=== PATIENT | female | born 1980 | race Caucasian/White ===

== ENCOUNTER 2016-06-11 07:49 | Emergency (ER) | payer BC ==
[2016-06-11 08:05] VITALS: BP 131/81
--- NOTE | 2016-06-11 08:16 | UC ---
Respiratory Complaint HPI - HPI Summary HPI Summary: The patient comes in today for: 1. Sinus pressure: Onset: One week. Palliative/provocative: Nothing makes her symptoms better or worse. Quality: Pressure Region: Frontal Severity: 8/10 though she appears less. Time: Constant. Associated symptoms: Previous disease: She was previously treated for a sinus infection and UTI and treated with 10 days of BActrim. Fevers: None. Rhinitis: "Sometimes" and appears yellowish. Cough: Green material. Upper tooth pain: Present. * - History of Current Complaint Stated Complaint: SINUSES Time Seen by Provider: 06/11/16 08:00 Hx Obtained From: Patient Hx Last Menstrual Period: 06/01/16 ?: No - Allergies/Home Medications Allergies/Adverse Reactions: Allergies Allergy/AdvReac Type Severity Reaction Status Date / Time Penicillins Allergy Mild See Comment Unverified 06/11/16 08:06 PMH/Surg Hx/FS Hx/Imm Hx Previously Healthy: No Endocrine History Of: Denies: Diabetes, Thyroid Disease Cardiovascular History Of: Reports: Cardiac Disorders - related CHF, 2004, Hypertension - During , had pre-eclampsia with heart failure by her report. Denies: Pacemaker/ICD, Myocardial Infarction, Congestive Heart Failure, Atrial Fibrillation, Deep Vein Thrombosis, Bleeding Disorders Respiratory History Of: Denies: COPD, Asthma, Bronchitis, Pneumonia, Pulmonary Embolism GI/ History Of: Denies: Gastroesophageal Reflux, Ulcer, Gastrointestinal Bleed, Gall Bladder Disease, Kidney Stones, Diverticulitis, Renal Disease, Urosepsis Neurological History Of: Denies: TIA, CVA, Dementia, Seizures, Migraine Psychological History Of: Reports: Anxiety Denies: Depression, Bipolar Disorder, Schizophrenia, Post Traumatic Stress Disorder Cancer History Of: Denies: Lung Cancer, Colorectal Cancer, Breast Cancer, Prostate Cancer Other History Of: Negative For: HIV, Hepatitis B, Hepatitis C, Anticoagulant Therapy - Surgical History Surgical History: Yes Surgery Procedure, Year, and Place: x1 - Family History Known Family History: Negative: Cardiac Disease, Hypertension, Renal Disease - Social History Occupation: Employed Full-time Alcohol Use: Rare Substance Use Type: Prescribed Substance Use Comment - Amount & Last Used: xanax Smoking Status (MU): Never Smoked Tobacco Have You Smoked in the Last Year: No - Immunization History Most Recent Influenza Vaccination: Not the Season Review of Systems Constitutional: Negative Skin: Negative Eyes: Negative ENT: Nasal Discharge Respiratory: Cough Cardiovascular: Negative Gastrointestinal: Negative Genitourinary: Negative All Other Systems Reviewed And Are Negative: Yes Physical Exam Triage Information Reviewed: Yes Appearance: Well-Appearing, No Pain Distress, Well-Nourished Vital Signs: Initial Vital Signs Temp 98 F 06/11/16 07:55 Pulse 68 06/11/16 07:55 Resp 16 06/11/16 07:55 BP 131/81 06/11/16 07:55 Pulse Ox 99 06/11/16 07:55 Vital Signs Reviewed: Yes Eyes: Positive: Conjunctiva Clear. Negative: Discharge ENT: Positive: Hearing grossly normal, Other: - She had tenderness to palpation of the frontal and maxillary sinuses.. Negative: Pharyngeal erythema, Nasal congestion, Nasal drainage, TM bulging, TM dull, TM red Dental: Negative: Gross Decay/Caries @, Dental Fracture @ Neck: Positive: Supple, Nontender, No Lymphadenopathy, Nuchal Rigidity Respiratory: Positive: Lungs clear, No respiratory distress, No accessory muscle use. Negative: Crackles, Wheezing Cardiovascular: Positive: RRR, No Murmur Abdomen Description: Positive: Nontender, No Organomegaly, Soft. Negative: Distended, Guarding Musculoskeletal: Positive: Strength Intact, ROM Intact, No Edema Neurological: Positive: Alert, Muscle Tone Normal Psychological: Positive: Age Appropriate Behavior, Consolable Skin: Negative: rashes, breakdown UC Diagnostic Evaluation - Laboratory O2 Sat by Pulse Oximetry: 99 Respiratory Course/Dx - Differential Dx/Diagnosis Differential Diagnosis/HQI/PQRI: Bronchitis, Laryngitis Provider Diagnoses: Sinusitis Discharge - Discharge Plan Condition: Stable Disposition: HOME Patient Education Materials: Sinusitis (ED) Referrals: Non Staff,Doctor [Primary Care Provider] - 1 Week (Please see your primary care provider in about a week to see how well you are doing. If you get worse, please be seen sooner.)
== END 2016-06-11 08:29 | disposition home or self-care (01) ==
LOC: UCCORT 07:49
DX: J32.9 Chronic sinusitis, unspecified (principal); Z88.0 Allergy status to penicillin
CPT/HCPCS: 99212; G0463

== ENCOUNTER 2016-06-25 15:36 | Emergency (ER) | payer BC ==
[2016-06-25 17:43] VITALS: BP 123/63
--- NOTE | 2016-06-25 18:06 | UC ---
Throat Pain/Nasal Jorge Alberto HPI - HPI Summary HPI Summary: compalint of sinus congestion for approx 1 month took a course of bactrim for 10 days then seen again and started a course of doxycycoine finished antibiotics 1 wek ago never really felt and better denies fever and xhills still congested and coughing non productive cough used nasal spray zyrtec yesterday - History of Current Complaint Chief Complaint: UCGeneralIllness Stated Complaint: RE CHECEK COUGH,CONGESTION Time Seen by Provider: 06/25/16 17:35 Hx Obtained From: Patient Hx Last Menstrual Period: 06/01/16 - Allergies/Home Medications Allergies/Adverse Reactions: Allergies Allergy/AdvReac Type Severity Reaction Status Date / Time Penicillins Allergy Mild See Comment Unverified 06/25/16 17:42 PMH/Surg Hx/FS Hx/Imm Hx Previously Healthy: Yes Endocrine History Of: Denies: Diabetes, Thyroid Disease Cardiovascular History Of: Reports: Cardiac Disorders - related CHF, 2004, Hypertension - During , had pre-eclampsia with heart failure by her report. Denies: Pacemaker/ICD, Myocardial Infarction, Congestive Heart Failure, Atrial Fibrillation, Deep Vein Thrombosis, Bleeding Disorders Respiratory History Of: Denies: COPD, Asthma, Bronchitis, Pneumonia, Pulmonary Embolism GI/ History Of: Denies: Gastroesophageal Reflux, Ulcer, Gastrointestinal Bleed, Gall Bladder Disease, Kidney Stones, Diverticulitis, Renal Disease, Urosepsis Neurological History Of: Denies: TIA, CVA, Dementia, Seizures, Migraine Psychological History Of: Reports: Anxiety Denies: Depression, Bipolar Disorder, Schizophrenia, Post Traumatic Stress Disorder Cancer History Of: Denies: Lung Cancer, Colorectal Cancer, Breast Cancer, Prostate Cancer Other History Of: Negative For: HIV, Hepatitis B, Hepatitis C, Anticoagulant Therapy - Surgical History Surgical History: Yes Surgery Procedure, Year, and Place: x1 - Family History Known Family History: Positive: None Negative: Cardiac Disease, Hypertension, Renal Disease - Social History Occupation: Employed Full-time Lives: With Family Alcohol Use: None Substance Use Type: Prescribed Substance Use Comment - Amount & Last Used: xanax Smoking Status (MU): Never Smoked Tobacco Have You Smoked in the Last Year: No - Immunization History Most Recent Influenza Vaccination: none Review of Systems Constitutional: Negative Skin: Negative Eyes: Negative ENT: Nasal Discharge Respiratory: Cough Cardiovascular: Negative Gastrointestinal: Negative Genitourinary: Negative Motor: Negative Neurovascular: Negative Musculoskeletal: Negative Neurological: Negative Psychological: Negative All Other Systems Reviewed And Are Negative: Yes Physical Exam Triage Information Reviewed: Yes Appearance: No Pain Distress, Well-Nourished Vital Signs: Initial Vital Signs Temp 98.4 F 06/25/16 17:36 Pulse 74 06/25/16 17:36 Resp 17 06/25/16 17:36 BP 123/63 06/25/16 17:36 Pulse Ox 99 06/25/16 17:36 Vital Signs Reviewed: Yes Eyes: Positive: Conjunctiva Clear ENT: Positive: Pharyngeal erythema, Nasal congestion, Nasal drainage, TMs normal. Negative: Tonsillar swelling Neck: Positive: No Lymphadenopathy Respiratory: Positive: Lungs clear, Normal breath sounds, No respiratory distress Cardiovascular: Positive: RRR, No Murmur, Pulses Normal Abdomen Description: Positive: Nontender, Soft Bowel Sounds: Positive: Present Musculoskeletal: Positive: No Edema Neurological: Positive: Alert Psychological Exam: Normal Skin Exam: Normal Throat Pain/Nasal Course/Dx - Differential Dx/Diagnosis Differential Diagnosis/HQI/PQRI: Influenza, Sinusitis, URI Provider Diagnoses: URI Discharge - Discharge Plan Condition: Stable Disposition: HOME Patient Education Materials: Upper Respiratory Infection (ED), Nasal Rinse (ED) , Sinusitis (ED) Additional Instructions: You have a viral infection There is no cure for a viral illness treatment is symptom management only Increase fluids and rest Take acetaminophen or ibuprofen for fever or pain Please review your discharge instructions. If your symptoms do not improve please call your primary care provider or return to urgent care
== END 2016-06-25 18:21 | disposition home or self-care (01) ==
LOC: UCCORT 15:36
DX: J06.9 Acute upper respiratory infection, unspecified (principal); Z88.0 Allergy status to penicillin
CPT/HCPCS: 99211; G0463

== ENCOUNTER 2018-06-16 17:02 | Emergency (ER) | payer BC ==
--- OUTSIDE RECORDS SUMMARY | 2018-06-16 18:11 | XMS REPORT | Continuity of Care Document ---
:1980 External Reference #:[id number] Author Name Josue Santiago MD Address [address], [address] [place] [address] Care Team Providers Name Role Phone Job Reed MD Primary Care Physician Unavailable Payers Type Date Identification Numbers Payment Provider Subscriber Policy Number: [id number] Azra CANO Tita Cochran [facility] Group Number: [id number] PayID: [id number] [place] [address] Expires: 2011 Policy Number: Excell[employer] SONIAJoao Carrasquillo [id number] [facility] PayID: [id number] [place] [address] Advance Directives Description No Information Available Problems Date Description Provider Status Onset: 04/23/2014 Obesity Active Onset: 04/23/2014 Obstructive sleep apnea syndrome Active Note: Tx autoCPAP [id number] [facility] (AirView) Mild HITESH. 04/10/14 home sleep study (266#) Ahi 12, oximetry low 87% Onset: 04/23/2014 Anxiety Active Family History Date Family Member(s) Problem(s) Comments Mother Sleep Apnea Mother Breast Cancer Social History Type Date Description Comments Sex Unknown Occupation [id number] mother. Tobacco Use Reviewed: 03/03/18 Patient has never smoked Smoking Status Reviewed: 03/03/18 Patient has never smoked Allergies, Adverse Reactions, Alerts Date Description Reaction Status Severity Comments 07/05/2008 Penicillins Active Medications Medication Date Status Form Strength Qnty SIG Indications Ordering Provider Vitamin 04/23/ Active Tablets 500-400mcg 0tabs take 1 Unknown X94-[id number] Acid 2013 capsule by oral route every day Multivitamins 04/23/ Active Capsules 0caps take 1 Unknown 2013 capsule by oral route every day Ibuprofen 04/23/ Active Tablets 800mg 0tabs take 1 Unknown 2013 tablet by oral route 3 times every day with food Celexa 04/23/ Active Tablets 40mg 0tabs take 1 Unknown 2013 tablet by oral route every day Vitamin D3 / Active Tablets 400Unit 0tabs take 2 Unknown Tablet by Oral route every day Magnesium / Active Tablets 30mg 0tabs use Unknown 0000 directed Biotin / Active Capsules 10mg Unknown 0000 Iron / Active Tablets 325(65Fe) 1 by mouth Unknown 0000 mg every day Flaxseed Oil / Active Capsules 1000mg 1 by mouth Unknown 0000 every day Cefdinir 07/01/ Hx Capsules 300mg 0caps take 1 Unknown 2015 - capsule by 03/03/ oral route 2018 every 12 hours Immunizations CPT Code Status Date Vaccine Lot # [id number] Given 02/20/2018 Influenza Vaccine, Quadrivalent, Split Virus, Im Use (Multi-Dose) Vital Signs Date Vital Result Comment 05/26/2018 9:29am Height 70.5 inches 5'10.50" Weight 282.00 lb BMI (Body Mass Index) 39.9 kg/m2 BP Systolic 120 mmHg BP Diastolic 70 mmHg Heart Rate 64 /min Body Temperature 97.6 F Body Temperature 36.4 C O2 % BldC Oximetry 97 % 03/03/2018 11:10am Height 70.5 inches 5'10.50" Weight 278.00 lb BMI (Body Mass Index) 39.3 kg/m2 BP Systolic 146 mmHg BP Diastolic 58 mmHg Heart Rate 78 /min Body Temperature 97.7 F Body Temperature 36.5 C O2 % BldC Oximetry 98 % 07/01/2015 10:00am Height 70.60 inches Weight 234.00 lb BMI (Body Mass Index) 33.00 kg/m2 BP Systolic 116 mmHg BP Diastolic 71 mmHg Heart Rate 66 /min Body Temperature 98.4 F Body Temperature 36.9 C O2 % BldC Oximetry 98 % 04/23/2014 10:33am Height 70.60 inches Weight 266.00 lb BMI (Body Mass Index) 37.52 kg/m2 BP Systolic 113 mmHg BP Diastolic 76 mmHg Heart Rate 66 /min Body Temperature 97.0 F Body Temperature 36.1 C O2 % BldC Oximetry 97 % 07/05/2008 10:23am BP Systolic 120 mmHg BP Diastolic 84 mmHg 07/05/2008 10:23am Height 69 inches Weight 232.00 lb BMI (Body Mass Index) 34.3 kg/m2 BP Systolic 116 mmHg BP Diastolic 84 mmHg Heart Rate 60 /min Results Description No Information Available Procedures Date Code Description Status 07/05/2008 80217 Electrocardiogram Complete Completed Encounters Type Date Location Provider Dx Diagnosis Office Visit 03/03/2018 [facility] Primary Care [place] G47.33 Obstructive sleep 11:00a AT [facility] One[facility] NP apnea (adult) (pediatric) Plan of Treatment Future Appointment(s):05/30/2019 10:40 am - Josue Santiago MD at [facility] Primary Care AT [facility]/04/2019 - Josue Santiago MDG47.33 Obstructive sleep apnea ( adult) (pediatric)E66.9 Obesity, unspecified
[2018-06-16 18:21] VITALS: BP 126/81
--- NOTE | 2018-06-16 18:36 | UC ---
General HPI - HPI Summary HPI Summary: pt c/o being ill for 4 weeks. began with a head cold, cough and chest congestion. her pcp tx with a zpak that helped lungs only. she returns for ongoing sinus congestion and now pain with purulent foul tasting drainage. - History of Current Complaint Chief Complaint: UCGeneralIllness Stated Complaint: SINUS Time Seen by Provider: 06/16/18 18:28 Hx Obtained From: Patient Hx Last Menstrual Period: 06/14/18 Onset/Duration: Gradual Onset Timing: Constant Pain Intensity: 7 Associated Signs & Symptoms: Negative: Fever, Headache - Allergy/Home Medications Allergies/Adverse Reactions: Allergies Allergy/AdvReac Type Severity Reaction Status Date / Time Penicillins Allergy Avoids it Verified 06/16/18 18:15 due to father's allergy Home Medications: Home Medications Ibuprofen TAB* [Motrin TAB* 800 MG] 800 mg PO Q6H 06/16/18 [History Confirmed ] Iron,Carbonyl [Iron Chews Pediatric] 15 mg PO DAILY PRN 06/16/18 [History Confirmed 06/16/18] Magnesium Oxide [Kp Mag-Oxide Magnesium] 100 mg PO BID 06/16/18 [History Confirmed 06/16/18] PMH/Surg Hx/FS Hx/Imm Hx - Additional Past Medical History Additional PMH: sinusitis Other History Of: Negative For: HIV, Hepatitis B, Hepatitis C, Anticoagulant Therapy - Surgical History Surgical History: Yes Surgery Procedure, Year, and Place: x1. ORAL SURGERY - Family History Known Family History: Positive: None Negative: Cardiac Disease, Hypertension, Renal Disease - Social History Alcohol Use: None Substance Use Type: Prescribed Substance Use Comment - Amount & Last Used: xanax Smoking Status (MU): Never Smoked Tobacco Have You Smoked in the Last Year: No - Immunization History Most Recent Influenza Vaccination: none Review of Systems All Other Systems Reviewed And Are Negative: Yes Constitutional: Positive: Negative Skin: Positive: Negative Eyes: Positive: Negative ENT: Positive: Nasal Discharge, Sinus Congestion, Sinus Pain/Tenderness Respiratory: Positive: Cough Cardiovascular: Positive: Negative Gastrointestinal: Positive: Negative Genitourinary: Positive: Negative Motor: Positive: Negative Neurovascular: Positive: Negative Musculoskeletal: Positive: Negative Neurological: Positive: Negative Psychological: Positive: Negative Physical Exam Triage Information Reviewed: Yes Appearance: Well-Appearing Vital Signs: Initial Vital Signs Temp 98.5 F 01/25/19 18:12 Pulse 60 06/16/18 18:12 Resp 18 06/16/18 18:12 BP 126/81 06/16/18 18:12 Pulse Ox 100 06/16/18 18:12 Vital Signs Reviewed: Yes Eyes: Positive: Conjunctiva Clear ENT: Positive: Pharynx normal, Nasal congestion, TMs normal, Sinus tenderness. Negative: Nasal drainage Neck: Positive: Supple, Nontender, No Lymphadenopathy Respiratory: Positive: Lungs clear, Decreased breath sounds, Other: - NPC Cardiovascular: Positive: RRR, No Murmur Abdomen Description: Positive: Nontender, No Organomegaly, Soft Bowel Sounds: Positive: Present Musculoskeletal: Positive: ROM Intact Neurological: Positive: Alert Psychological: Positive: Age Appropriate Behavior Skin Exam: Normal Course/Dx - Diagnoses Provider Diagnosis: Sinusitis, Cough Discharge - Sign-Out/Discharge Documenting (check all that apply): Patient Departure All imaging exams completed and their final reports reviewed: No Studies - Discharge Plan Condition: Stable Disposition: HOME Prescriptions: Albuterol HFA INHALER* [Ventolin HFA Inhaler*] 2 puff INH Q6H #1 mdi DOXYcycline CAP(*) [DOXYcycline 100MG CAP(*)] 100 mg PO BID 10 Days #20 cap Patient Education Materials: Sinusitis (ED), Acute Cough (ED) Referrals: Eloy Reed NP [Primary Care Provider] - 7 Days - Billing Disposition and Condition Condition: STABLE Disposition: Home
== END 2018-06-16 18:56 | disposition home or self-care (01) ==
LOC: UCCORT 17:02
DX: J32.9 Chronic sinusitis, unspecified (principal); R05 Cough; R09.89 Other specified symptoms and signs involving the circulatory and respiratory systems; Z88.0 Allergy status to penicillin
CPT/HCPCS: 99212; G0463

== ENCOUNTER 2018-08-21 10:45 | Emergency (ER) | payer BC ==
[2018-08-21 12:41] VITALS: BP 139/75
--- NOTE | 2018-08-21 12:55 | UC ---
Neck Pain HPI - HPI Summary HPI Summary: 38 y/o female with h/o fibrolmyalgia, arthritis, h/o lower back pain presents with neck pain, more right sided x 1 week. no worsening, worse with neck movements or sudden movements. + throbbing headache at times due to pain. no illnesses, fever, feeling ill. NO trauma. intermittent tingling in fingertips R sided at times, very short lived no h/o neck trauma, injuries. - History of Current Complaint Chief Complaint: UCBackPain Stated Complaint: RIGHT SIDED NECK PAIN x1 WEEK Time Seen by Provider: 08/21/18 12:53 Hx Obtained From: Patient Hx Last Menstrual Period: 08/13/18 ?: No Onset/Duration Of Injury/Symptoms: Days Mechanism Of Injury: No Known Trauma Timing: Intermittent Episodes - worse with head movement s Onset/Duration: Sudden Onset Severity: Moderate Pain Intensity: 4 Pain Scale Used: 0-10 Numeric Character: Aching, Stiff, Spasmotic Aggravating Factors: Position, Movement Alleviating Factors: Other: - rest, OTC Meds - motrin 800mg Associated Signs & Symptoms: Negative: Swelling, Redness, Bruising, Fever, Nuchal Rigity, Weakness, Headache, Paresthesia - Allergies/Home Medications Allergies/Adverse Reactions: Allergies Allergy/AdvReac Type Severity Reaction Status Date / Time Penicillins Allergy Avoids it Verified 08/21/18 12:34 due to father's allergy PMH/Surg Hx/FS Hx/Imm Hx Previously Healthy: Yes - fibromyalgia Other History Of: Negative For: HIV, Hepatitis B, Hepatitis C, Anticoagulant Therapy - Surgical History Surgical History: Yes Surgery Procedure, Year, and Place: x1. ORAL SURGERY - Family History Known Family History: Positive: None Negative: Cardiac Disease, Hypertension, Renal Disease - Social History Alcohol Use: None Substance Use Type: None Substance Use Comment - Amount & Last Used: xanax Smoking Status (MU): Never Smoked Tobacco Have You Smoked in the Last Year: No - Immunization History Most Recent Influenza Vaccination: none Review of Systems All Other Systems Reviewed And Are Negative: Yes Constitutional: Positive: Negative. Negative: Fever, Chills, Fatigue Skin: Positive: Negative ENT: Negative: Nasal Discharge, Sinus Congestion, Sinus Pain/Tenderness Respiratory: Positive: Negative Cardiovascular: Positive: Negative Gastrointestinal: Positive: Negative Musculoskeletal: Positive: Arthralgia, Decreased ROM, Myalgia Neurological: Positive: Headache - throbbing Is Patient Immunocompromised?: Yes Physical Exam Triage Information Reviewed: Yes Appearance: Well-Appearing, No Pain Distress, Well-Nourished Vital Signs: Initial Vital Signs Temp 99.2 F 08/21/18 12:36 Pulse 77 08/21/18 12:36 Resp 18 08/21/18 12:36 BP 139/75 08/21/18 12:36 Pulse Ox 100 08/21/18 12:36 Vital Signs Reviewed: Yes Eyes: Positive: Conjunctiva Clear ENT: Positive: Pharynx normal, TMs normal, Uvula midline. Negative: TM bulging , TM dull, TM red, Tonsillar swelling, Tonsillar exudate Neck: Positive: Supple, No Lymphadenopathy, Tenderness @ - tenderness to palpation over right scalene muscle, base of occiput b/l, b/l trap. no trigger point appreciated, no spasm palpated. no nuchal rigitidy.. Negative: Nuchal Rigidity, Enlarged Nodes @ Respiratory: Positive: Chest non-tender, Lungs clear, Normal breath sounds, No respiratory distress, No accessory muscle use Neurological Exam: Normal Neurological: Positive: Other: - full ROM b/l fingers without difficulty Psychological Exam: Normal Skin Exam: Normal Neck Pain Course/Dx - Course Course Of Treatment: torticollus, treatment with oral steroid taper, follow up with primary physician if no improvement within 2-3 days - Differential Dx/Diagnosis Provider Diagnosis: Torticollis Discharge - Sign-Out/Discharge Documenting (check all that apply): Patient Departure All imaging exams completed and their final reports reviewed: No Studies - Discharge Plan Condition: Good Disposition: HOME Prescriptions: predniSONE TAB* [Deltasone 10 MG TAB*] 10 mg PO DAILY #15 tab Patient Education Materials: Spasmodic Torticollis (ED) Referrals: Eloy Reed NP [Primary Care Provider] - Additional Instructions: - Increase rest- lying down to help muscles relax - Heat to increase blood flow to muscles - Go to ER with worsening pain, vision changes, fever, decreased neck movements. - Billing Disposition and Condition Condition: GOOD Disposition: Home
== END 2018-08-21 13:28 | disposition home or self-care (01) ==
LOC: UCCORT 10:45
DX: M43.6 Torticollis (principal); Z88.0 Allergy status to penicillin
CPT/HCPCS: 99212; G0463

== ENCOUNTER 2018-09-01 14:49 | Emergency (ER) | payer BC | END 2018-09-01 15:51 | disposition left against medical advice (07) | LOC: UCCORT 14:49 | DX: R11.0 Nausea (principal); R10.9 Unspecified abdominal pain; Z53.21 Procedure and treatment not carried out due to patient leaving prior to being seen by health care provider ==

== ENCOUNTER 2018-09-02 13:05 | Emergency (ER) | payer BC ==
[2018-09-02 13:58] VITALS: BP 122/80
--- NOTE | 2018-09-02 14:18 | UC ---
Abdominal Pain Female HPI - HPI Summary HPI Summary: 38 yo female presents with two complaints. 1) For the last 2-3 weeks she has been having intermittent RUQ pain that causes her to become nauseous. She says her pain is better with refraining from eating. Her pain is worse after eating. Feels achy and stabbing at times. Denies fever, chills, SOB, chest pain, dysuria. 2) For the last week she has had sinus congestion and pressure causing her a headache. She thinks she has a sinus infection as she says she gets "chronic sinusitis", but she recently was treated for a neck muscle spasm and is concerned that her headache is due to a neck problem. She has been taking ibuprofen with no relief of her discomfort. Denies numbness, tingling, vision changes, cervical injury, radiation of pain. - History of Current Complaint Chief Complaint: UCGeneralIllness Stated Complaint: LOW BACK PAIN,ASHBY,NAUSEA Time Seen by Provider: 09/02/18 14:07 Hx Last Menstrual Period: 08/11/18 Onset/Duration: Gradual Onset Severity Initially: Moderate Severity Currently: Moderate Pain Intensity: 6 Pain Scale Used: 0-10 Numeric Allergies/Adverse Reactions: Allergies Allergy/AdvReac Type Severity Reaction Status Date / Time Penicillins Allergy Avoids it Verified 09/02/18 13:58 due to father's allergy PMH/Surg Hx/FS Hx/Imm Hx - Additional Past Medical History Additional PMH: Fibromyalgia Psychological History: Anxiety, Depression Other History Of: Negative For: HIV, Hepatitis B, Hepatitis C, Anticoagulant Therapy - Surgical History Surgical History: Yes Surgery Procedure, Year, and Place: x1. ORAL SURGERY - Family History Known Family History: Positive: None Negative: Cardiac Disease, Hypertension, Renal Disease - Social History Occupation: Employed Full-time Lives: With Family Alcohol Use: None Substance Use Type: None Substance Use Comment - Amount & Last Used: xanax Smoking Status (MU): Never Smoked Tobacco Have You Smoked in the Last Year: No - Immunization History Most Recent Influenza Vaccination: none Review of Systems All Other Systems Reviewed And Are Negative: Yes Constitutional: Positive: Negative Skin: Positive: Negative Eyes: Positive: Negative ENT: Positive: Nasal Discharge, Sinus Congestion Respiratory: Positive: Negative Cardiovascular: Positive: Negative Gastrointestinal: Positive: Abdominal Pain, Nausea Genitourinary: Positive: Negative Neurovascular: Positive: Negative Musculoskeletal: Positive: Negative Neurological: Positive: Headache Psychological: Positive: Negative Physical Exam - Summary Physical Exam Summary: GENERAL: NAD. WDWN. No pain distress. SKIN: No rashes, sores, lesions, or open wounds. HEENT: Head: AT/NC Eyes: EOM intact. Conjunctiva clear without inflammation or discharge. Ears: Hearing grossly normal. TMs intact, no bulging, erythema, or edema. Nose: Nasal mucosa mildly swollen and erythematous with clear discharge. TTP maxillary and frontal sinus RIGHT > LEFT. Throat: Posterior oropharynx without exudates, erythema, or tonsillar enlargement. Uvula midline. NECK: Supple. Nontender. No lymphadenopathy. CHEST: CTAB. No r/r/w. No accessory muscle use. Breathing comfortably and in no distress. CV: RRR. Without m/r/g. Pulses intact. ABDOMEN: RUQ TTP. Positive mccoy sign. Soft. No distention or guarding. No CVA tenderness. Bowel sounds present MSK: Cervical spine: FROM without pain. NTTP. Negative spurlings. NEURO: Alert. Sensations intact C4-T1 B/L PSYCH: Age appropriate behavior. Triage Information Reviewed: Yes Vital Signs: Initial Vital Signs Temp 98.1 F 09/02/18 13:48 Pulse 98 09/02/18 13:48 Resp 20 09/02/18 13:48 BP 122/80 09/02/18 13:48 Pulse Ox 100 09/02/18 13:48 Laboratory Tests 09/02/18 14:25 POC Urine Color Yellow POC Urine Clarity Slightly cloudy POC Urine pH 7.0 POC Ur Specif [place] 1.010 POC Urine Protein Negative POC Ur Glucose (UA) Negative POC Urine Ketones Negative POC Urine Blood 2+ A POC Urine Nitrite Negative POC Urine Bilirubin Negative POC Urine Urobilinogen 1.0 POC U Leukocyte Esteras 1+ A Vital Signs Reviewed: Yes Abd Pain Female Course/Dx - Course Course Of Treatment: UA: with 1+ leuk and 2+ blood. Pt is NOT on her period and states that she has noticed some blood in her urine the last 2 days. --- Given this and right abdominal pain. We discussed the possibility of a kidney stone. At this time, my suspicion is low as her exam and history seem more consistent with gallbladder etiology, but pt prefers to be worked up for a kidney stone today. Therefore, a CT was ordered. CT: IMPRESSION: 1. NO EVIDENCE FOR RENAL, URETERAL CALCULI OR HYDRONEPHROSIS. 2. SMALL AMOUNT OF FREE INTRAPERITONEAL FLUID IN THE PELVIS. 3. HEPATOSPLENOMEGALY AND HEPATIC STEATOSIS. XR c spine: IMPRESSION: 1. STRAIGHTENING OF THE CERVICAL SPINE. 2. SLIGHTLY LIMITED STUDY. I suspect her headache is due to her sinus issue. We discussed viral vs bacterial causes and she prefers to be on antibiotics at this time. Regarding her RUQ pain - I suspect this could be biliary colic from her gallbladder. Will refer her to gen surg for further eval. She was given Zofran for intermittent nausea and information regarding a low fat diet to help her discomfort. Advised that if she develops worsening pain, vomiting, or fever to go to the ED. - Differential Dx/Diagnosis Provider Diagnosis: Sinusitis, Biliary colic Discharge - Sign-Out/Discharge Documenting (check all that apply): Patient Departure All imaging exams completed and their final reports reviewed: Yes - Discharge Plan Condition: Stable Disposition: HOME Prescriptions: Cephalexin CAP* [Keflex CAP*] 500 mg PO TID #21 cap Ondansetron ODT TAB* [Zofran 4 MG Odt TAB*] 4 mg PO Q8H PRN #12 tab.odt PRN Reason: Nausea Patient Education Materials: Biliary Colic (ED), Low Fat Diet (ED), Rhinosinusitis (DC) Referrals: Eloy Reed NP [Primary Care Provider] - Arsen Joshua MD [Medical Doctor] - As Soon As Possible Additional Instructions: If you develop a fever, shortness of breath, chest pain, new or worsening symptoms - please call your PCP or go to the ED. I strongly recommend that you schedule an appointment with a General Surgeon at the number below regarding your right upper abdominal pain - I suspect this is your gallbladder causing your pain. - Billing Disposition and Condition Condition: STABLE Disposition: Home - Attestation Statements Provider Attestation: Per institutional requirements, I have reviewed the chart, however, I was not consulted specifically or made aware of this patient by the midlevel provider. I did not personally evaluate, interact with , or disposition this patient Please note this patient was discharged after 3PM. I was here until 2:30 PM.
--- NOTE | 2018-09-05 07:03 | UC ---
- Progress Note Progress Note: urine cultre neg final growth no change rajesh 09/05/18 Course/Dx - Diagnoses Provider Diagnoses: Sinusitis, Biliary colic Discharge - Sign-Out/Discharge Documenting (check all that apply): Post-Discharge Follow Up All imaging exams completed and their final reports reviewed: Yes - Discharge Plan Condition: Stable Disposition: HOME Prescriptions: Cephalexin CAP* [Keflex CAP*] 500 mg PO TID #21 cap Ondansetron ODT TAB* [Zofran 4 MG Odt TAB*] 4 mg PO Q8H PRN #12 tab.odt PRN Reason: Nausea Patient Education Materials: Biliary Colic (ED), Low Fat Diet (ED), Rhinosinusitis (DC) Referrals: Arsen Joshua MD [Medical Doctor] - As Soon As Possible Eloy Reed NP [Primary Care Provider] - Additional Instructions: If you develop a fever, shortness of breath, chest pain, new or worsening symptoms - please call your PCP or go to the ED. I strongly recommend that you schedule an appointment with a General Surgeon at the number below regarding your right upper abdominal pain - I suspect this is your gallbladder causing your pain. - Billing Disposition and Condition Condition: STABLE Disposition: Home
== END 2018-09-02 15:12 | disposition home or self-care (01) ==
LOC: UCCORT 13:05
DX: J32.9 Chronic sinusitis, unspecified (principal); K80.50 Calculus of bile duct without cholangitis or cholecystitis without obstruction; R16.2 Hepatomegaly with splenomegaly, not elsewhere classified; K76.0 Fatty (change of) liver, not elsewhere classified; R51 Headache; F41.9 Anxiety disorder, unspecified; F32.9 Major depressive disorder, single episode, unspecified; Z88.0 Allergy status to penicillin
CPT/HCPCS: 72050; 74176; 81003; 87086; 99212; G0463

== ENCOUNTER 2018-12-11 17:04 | Emergency (ER) | payer BC ==
[2018-12-11 17:59] VITALS: BP 126/69
--- NOTE | 2018-12-11 18:56 | ED ---
Throat Pain/Nasal Congestion - HPI Summary HPI Summary: 38 yr old female with the complaint of sore throat for a week; she has a child who has had strep throat. The patient has had right knee pain since yesterday when stepping and twisting the right knee. She has pain mostly in the medial knee. No falls or direct trauma. - History of Current Complaint Chief Complaint: UCLowerExtremity Time Seen by Provider: 12/11/18 17:50 - Allergies/Home Medications Allergies/Adverse Reactions: Allergies Allergy/AdvReac Type Severity Reaction Status Date / Time Penicillins Allergy Avoids it Verified 09/02/18 13:58 due to father's allergy Home Medications: Home Medications Ibuprofen TAB* [Motrin TAB* 800 MG] 800 mg PO Q8H PRN 12/11/18 [History Confirmed 12/11/18] PMH/Surg Hx/FS Hx/Imm Hx Endocrine/Hematology History: Denies: Hx Anticoagulant Therapy, Hx Diabetes, Hx Thyroid Disease Cardiovascular History: Denies: Hx Congestive Heart Failure, Hx Deep Vein Thrombosis, Hx Hypertension - During , had pre-eclampsia with heart failure by her report., Hx Myocardial Infarction, Hx Pacemaker/ICD Respiratory History: Denies: Hx Asthma, Hx Chronic Obstructive Pulmonary Disease (COPD), Hx Lung Cancer, Hx Pneumonia, Hx Pulmonary Embolism GI History: Denies: Hx Gall Bladder Disease, Hx Gastrointestinal Bleed, Hx Ulcer, Hx Urosepsis History: Denies: Hx Kidney Stones, Hx Renal Disease Sensory History: Denies: Hx Hearing Aid Neurological History: Denies: Hx Dementia, Hx Migraine, Hx Seizures, Hx Transient Ischemic Attacks (TIA) Psychiatric History: Reports: Hx Anxiety, Hx Panic Disorder - ANXIETY Denies: Hx Depression, Hx Schizophrenia, Hx Bipolar Disorder - Cancer History Hx Chemotherapy: No Hx Radiation Therapy: No - Surgical History Surgery Procedure, Year, and Place: x1. ORAL SURGERY Infectious Disease History: No Infectious Disease History: Denies: Hx Clostridium Difficile, Hx Hepatitis, Hx Human Immunodeficiency Virus (HIV), Hx of Known/Suspected MRSA, Hx Shingles, Hx Tuberculosis, Hx Known/ Suspected VRE, Hx Known/Suspected VRSA, History Other Infectious Disease, Traveled Outside the [place] in Last 30 Days - Family History Known Family History: Positive: None Negative: Cardiac Disease, Hypertension, Renal Disease - Social History Alcohol Use: None Substance Use Type: Reports: None Substance Use Comment - Amount & Last Used: xanax Smoking Status (MU): Never Smoked Tobacco Have You Smoked in the Last Year: No Review of Systems Constitutional: Negative Positive: Sore Throat Positive: Other - right knee pain All Other Systems Reviewed And Are Negative: Yes Physical Exam Triage Information Reviewed: Yes Vital Signs On Initial Exam: Initial Vitals Temp Pulse Resp BP Pulse Ox 97.6 F 75 18 126/69 99 12/11/18 17:49 12/11/18 17:49 12/11/18 17:49 12/11/18 17:49 12/11/18 17:49 Vital Signs Reviewed: Yes Appearance: Positive: Well-Appearing, No Pain Distress Skin: Positive: Warm, Skin Color Reflects Adequate Perfusion Head/Face: Positive: Normal Head/Face Inspection Eyes: Positive: EOMI ENT: Positive: Normal ENT inspection, Pharyngeal erythema Neck: Positive: Nontender Respiratory/Lung Sounds: Positive: Clear to Auscultation, Breath Sounds Present Cardiovascular: Positive: RRR. Negative: Murmur Abdomen Description: Negative: Distended Musculoskeletal: Positive: Other - right medial knee with tenderness. No redness, no effusion, no bruise. She has good flexion and extension of the right knee. Neurological: Positive: Sensory/Motor Intact, Alert, Oriented to Person Place, Time, CN Intact II-III, Speech Normal Psychiatric: Positive: Normal Diagnostics - Vital Signs Vital Signs Temp Pulse Resp BP Pulse Ox 12/11/18 17:49 97.6 F 75 18 126/69 99 - Laboratory Lab Results: Lab Results 12/11/18 Range/Units 18:19 Group A Strep Rapid Negative (Negative) Lab Statement: Any lab studies that have been ordered have been reviewed, and results considered in the medical decision making process. - Radiology right knee Radiology Interpretation Completed By: ED Physician - NAD EENT Course/Dx - Course Course Of Treatment: 38 yr old with viral URI,pharyngitis, and medial collateral ligament right knee strain. FU with ortho and pmd. - Diagnoses Provider Diagnoses: MCL sprain of right knee, Pharyngitis Discharge - Sign-Out/Discharge Documenting (check all that apply): Patient Departure All imaging exams completed and their final reports reviewed: No - Discharge Plan Condition: Good Disposition: HOME Patient Education Materials: Knee Pain (ED), Pharyngitis (ED) Referrals: Eloy Reed NP [Primary Care Provider] - 2 Days - Billing Disposition and Condition Condition: GOOD Disposition: Home
--- NOTE | 2018-12-12 07:32 | UC ---
- Progress Note Progress Note: xray report right knee: IMPRESSION: NO EVIDENCE FOR FRACTURE. Course/Dx - Diagnoses Provider Diagnoses: MCL sprain of right knee, Pharyngitis Discharge - Sign-Out/Discharge Documenting (check all that apply): Patient Departure All imaging exams completed and their final reports reviewed: Yes - Discharge Plan Condition: Good Disposition: HOME Patient Education Materials: Pharyngitis (ED), Knee Pain (ED) Referrals: Bebeto Tan MD [Medical Doctor] - 2 Days Eloy Reed NP [Primary Care Provider] - 2 Days - Billing Disposition and Condition Condition: GOOD Disposition: Home
== END 2018-12-11 19:58 | disposition home or self-care (01) ==
LOC: UCCORT 17:04
DX: S83.411A Sprain of medial collateral ligament of right knee, initial encounter (principal); X50.1XXA Overexertion from prolonged static or awkward postures, initial encounter; Y93.01 Activity, walking, marching and hiking; Y92.9 Unspecified place or not applicable; J02.9 Acute pharyngitis, unspecified; Z88.0 Allergy status to penicillin
CPT/HCPCS: 87651; 99213; G0463

== ENCOUNTER 2019-03-08 08:49 | Emergency (ER) | payer BC ==
[2019-03-08 09:28] VITALS: BP 137/70
--- NOTE | 2019-03-08 10:56 | ED ---
Back Pain - HPI Summary HPI Summary: 38 yr old female with the complaint of bilateral scapular pain and mid thoracic spine pain, 6/10, present for five months, and worse over the past week. The pain is worse with deep breath at times. She denies SOB. She denies dizziness , lightheadedness. She denies falls or injuries. She notices it is worse when sleeping at night and has thought the problem is her bed. She has a history of pre eclampsia and post cardiomyopathy, but no issues in the past 14 years since the last delivery. 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 - History of Current Complaint Chief Complaint: UCBackPain Stated Complaint: UPPER BACK PAIN/PRESSURE Time Seen by Provider: 03/08/19 09:48 Hx Last Menstrual Period: 02/27/19 Pain Intensity: 7 - Allergies/Home Medications Allergies/Adverse Reactions: Allergies Allergy/AdvReac Type Severity Reaction Status Date / Time Penicillins Allergy Avoids it Verified 03/08/19 09:28 due to father's allergy Home Medications: Home Medications Clarithromycin TAB* [Biaxin 500 MG TAB*] 500 mg PO BID 03/08/19 [History Confirmed 03/08/19] Ferrous Gluconate [Iron] 2 tab PO BID 03/08/19 [History Confirmed 03/08/19] PMH/Surg Hx/FS Hx/Imm Hx Endocrine/Hematology History: Denies: Hx Anticoagulant Therapy, Hx Diabetes, Hx Thyroid Disease Cardiovascular History: Denies: Hx Congestive Heart Failure, Hx Deep Vein Thrombosis, Hx Hypertension - During , had pre-eclampsia with heart failure by her report., Hx Myocardial Infarction, Hx Pacemaker/ICD Respiratory History: Denies: Hx Asthma, Hx Chronic Obstructive Pulmonary Disease (COPD), Hx Lung Cancer, Hx Pneumonia, Hx Pulmonary Embolism GI History: Denies: Hx Gall Bladder Disease, Hx Gastrointestinal Bleed, Hx Ulcer, Hx Urosepsis History: Denies: Hx Kidney Stones, Hx Renal Disease Sensory History: Denies: Hx Hearing Aid Neurological History: Denies: Hx Dementia, Hx Migraine, Hx Seizures, Hx Transient Ischemic Attacks (TIA) Psychiatric History: Reports: Hx Anxiety, Hx Panic Disorder - ANXIETY Denies: Hx Depression, Hx Schizophrenia, Hx Bipolar Disorder - Cancer History Hx Chemotherapy: No Hx Radiation Therapy: No - Surgical History Surgery Procedure, Year, and Place: x1. ORAL SURGERY Infectious Disease History: No Infectious Disease History: Denies: Hx Clostridium Difficile, Hx Hepatitis, Hx Human Immunodeficiency Virus (HIV), Hx of Known/Suspected MRSA, Hx Shingles, Hx Tuberculosis, Hx Known/ Suspected VRE, Hx Known/Suspected VRSA, History Other Infectious Disease, Traveled Outside the [place] in Last 30 Days - Family History Known Family History: Positive: None Negative: Cardiac Disease, Hypertension, Renal Disease - Social History Occupation: Employed Full-time Lives: With Family Alcohol Use: None Substance Use Type: Reports: None Substance Use Comment - Amount & Last Used: xanax Smoking Status (MU): Never Smoked Tobacco Have You Smoked in the Last Year: No Review of Systems Constitutional: Negative Positive: Other - back pain five months. All Other Systems Reviewed And Are Negative: Yes Physical Exam Vital Signs On Initial Exam: Initial Vitals Temp Pulse Resp BP Pulse Ox 97.9 F 69 15 137/70 100 03/08/19 09:21 03/08/19 09:21 03/08/19 09:21 03/08/19 09:21 03/08/19 09:21 Diagnostics - Vital Signs Vital Signs Temp Pulse Resp BP Pulse Ox 03/08/19 09:21 97.9 F 69 15 137/70 100 - Laboratory Lab Statement: Any lab studies that have been ordered have been reviewed, and results considered in the medical decision making process. - Radiology chest pa lat, and t spine Radiology Interpretation Completed By: Radiologist - DJD t spine Back Pain Course/Dx - Course Course Of Treatment: 38 yr old with DJD t spine. She has had pain five months. Recommend go to ER for further labs and MRI and imaging to give definitive diagnosis. - Diagnoses Provider Diagnoses: DJD (degenerative joint disease) of thoracic spine, Back pain Discharge ED - Sign-Out/Discharge Documenting (check all that apply): Patient Departure All imaging exams completed and their final reports reviewed: Yes - Discharge Plan Condition: Good Disposition: HOME-RECOMMEND TO ED Patient Education Materials: Back Pain (ED) Referrals: Eloy Reed NP [Primary Care Provider] - 2 Days Additional Instructions: Given the degree of back pain you have, you should go to the ER for labs and further testing. Our test here show you may have arthritis in the spine, but you need other tests done to be sure not another issue. Do not delay going. - Billing Disposition and Condition Condition: GOOD Disposition: Home-Recommend to ED
== END 2019-03-08 11:06 | disposition home health service (06) ==
LOC: UCCORT 08:49
DX: M51.34 Other intervertebral disc degeneration, thoracic region (principal); Z88.0 Allergy status to penicillin
CPT/HCPCS: 71046; 72070; 99212; G0463

== ENCOUNTER 2019-07-15 07:32 | Emergency (ER) | payer BC ==
--- OUTSIDE RECORDS SUMMARY | 2019-07-15 07:38 | XMS REPORT ---
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 257023109 disorders of pancreatic internal secretion Problem Leiomyoma of D25.9 Active 38067629 uterus, unspecified Problem Family history of Z80.3 Active 377734905 malignant neoplasm of breast Problem Fibromyalgia M79.7 Active 878489897 Problem Unspecified lump in N63.21 Active [id number] the left breast, upper outer quadrant Problem 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 87676731 chronicus Problem Dysuria R30.0 Active 06765040 Problem Noninflammatory N90.9 Active 535437925 disorder of vulva and perineum, unspecified Problem Acute vaginitis N76.0 Active 08090908 Problem Other abnormal and R92.8 Active 370430589 inconclusive findings on diagnostic imaging of breast Problem Disorder of the L98.9 Active 74191344 skin and subcutaneous tissue, unspecified Problem Endometriosis of N80.0 Active 53188406 uterus Problem Disorder of breast, N64.9 Active 68558385 unspecified Problem Secondary N94.5 Active 25609177 dysmenorrhea ALLERGIES No Information ENCOUNTERS Encounter Location Date Diagnosis [facility] [address] Feb, [place], [place] [id number] [facility] [address] Aug, [place], [place] [id number] [facility] [address] May, [place], [place] [id number] [facility] [address] May, [place] [id number] [facility] [address] May, [place] [id number] [facility] [address] May, [place] [id number] [facility] [address] May, [place] [id number] [facility] [address] May, [place] [id number] [facility] [address] May, [place], [place] [id number] [facility] 103 May, Acute vaginitis N76.0 [place] [id number] [facility] [address] May, Dysuria R30.0 and Lichen [facility] simplex chronicus L28.0 [place] [id number] [facility] [address] May, [place], [place] [id number] [facility] [address] May, [place] [id number] [facility] 103 Apr, Excessive and frequent [facility] menstruation with regular [place], [place] [id number] cycle N92.0 ; Secondary dysmenorrhea N94.5 ; Leiomyoma of uterus, unspecified D25.9 ; Family history of malignant neoplasm of breast Z80.3 and Endometriosis of uterus N80.[address] [facility] [place] [facility] [address] Apr, [place] [id number] [facility] [address] Apr, Excessive and frequent [facility] menstruation with regular [place], [place] [id number] cycle N92.0 [place] [address] Apr, Excessive and frequent [facility] [place] [id number] menstruation with regular cycle N92.0 ; Secondary dysmenorrhea N94.5 and Leiomyoma of uterus, unspecified D25.9 [facility] Apr, [place] [id number] [facility] Mar, Excessive and frequent [facility] menstruation with regular [place], [place] [id number] cycle N92.0 ; Polycystic ovarian syndrome E28.2 ; Leiomyoma of uterus, unspecified D25.9 ; Family history of malignant neoplasm of breast Z80.3 ; Lichen simplex chronicus L28.0 ; Endometriosis of uterus N80.0 and Acute vaginitis N76.0 [facility] Mar, [place] [id number] [facility] Mar, Acute [facility]initis N76.0 [facility] Dys[facility] R30.0 [place] [id number] [facility] Feb, Encounter for gynecological [facility] examination (general) [place], [place] [id number] (routine) with abnormal findings Z01.411 ; Excessive and frequent menstruation with regular cycle N92.0 ; Lichen simplex chronicus L28.0 ; Polycystic ovarian syndrome E28.2 ; Leiomyoma of uterus, unspecified D25.9 ; Family history of malignant neoplasm of breast Z80.3 and Endometriosis of uterus N80.0 [facility] Feb, Leiomyoma of uterus, OBGYN [facility] unspecified D25.9 [place] [id number] [facility] 103 Feb, Disorder of breast, OBGYN [facility] unspecified N64.9 [place] [id number] [facility] [address] Feb, OBGYN [place] [id number] [facility] Jan, Lichen simplex chronicus [address] [place], L28.0 and Disorder of [place] [id number] breast, unspecified N64.9 [facility] [address] Jan, OBGYN [place] [id number] [facility] 103 Dec, [place] [id number] [facility] 103 Dec, [facility] and frequent [facility] with regular [place] [id number] cycle N92.0 ; Polycystic ovarian syndrome E28.2 ; Leiomyoma of uterus, unspecified D25.9 ; Family history of malignant neoplasm of breast Z80.3 ; Lichen simplex chronicus L28.0 and Endometriosis of uterus N80.0 [place] [address] Dec, Excessive and frequent [facility] [place] [id number] menstruation with regular cycle N92.0 ; Leiomyoma of uterus, unspecified D25.9 and Polycystic ovarian syndrome E28.2 [facility] [address] Nov, OBGYN [place] [id number] [facility] 103 Nov, Excessive and frequent [facility]ation with regular [place] [id number] cycle N92.0 [facility] 103 Nov, Excessive and frequent OBGYN [facility] menstruation with regular [place], [place] [id number] cycle N92.0 ; Polycystic ovarian syndrome E28.2 and Leiomyoma of uterus, unspecified D25.9 [facility] 103 Nov, O[place]YN [place] [id number] [facility] 103 Oct, [place] [id number] [facility] 103 Oct, Excessive and frequent [facility] menstruation with regular [place] [id number] cycle N92.0 ; Polycystic ovarian syndrome E28.2 ; Leiomyoma of uterus, unspecified D25.9 ; Family history of malignant neoplasm of breast Z80.3 and Lichen simplex chronicus L28.0 [facility] 103 Oct, Disorder of the skin and [facility] subcutaneous tissue, [place] [id number] unspecified L98.9 [facility] 103 September, [place] [id number] [facility] 103 September, [place] [id number] [facility] 103 September, Excessive and frequent OBGYN [facility] menstruation with regular [place] [address] cycle N92.0 [facility] 103 Aug, Family history of malignant [facility] neoplasm of breast Z80.3 [place], [place] [id number] and Unspecified lump in the left breast, upper outer quadrant N63.21 [facility] 103 Feb, [place] [id number] [facility] 103 Feb, Lichen simplex chronicus [facility] L28.0 ; Family history of [place], [place] [id number] malignant neoplasm of breast Z80.3 and Unspecified lump in the left breast, upper outer quadrant N63.21 [facility] Feb, Noninflammatory disorder of [facility] vulva and perineum, [place], [place] [id number] unspecified N90.9 [facility] Feb, Other abnormal and [facility] inconclusive findings on [place], [place] [id number] diagnostic imaging of breast R92.[address] [facility] [place] [facility] Feb, [place] [id number] [facility] Feb, Noninflammatory disorder of [facility] vulva and perineum, [place] [id number] unspecified N90.9 [facility] 103 Jan, [place] [id number] [facility] [place] [facility] Jan, Encounter for gynecological [facility] examination (general) [place], [place] [id number] (routine) with abnormal findings Z01.411 ; Other abnormal and inconclusive findings on diagnostic imaging of breast R92.8 ; Leiomyoma of uterus, unspecified D25.9 ; Encounter for screening for malignant neoplasm of cervix Z12.4 ; Family history of malignant neoplasm of breast Z80.3 ; Dysuria R30.0 ; Unspecified lump in the left breast, upper outer quadrant N63.21 and Noninflammatory disorder of vulva and perineum, unspecified N90.[address] [facility] [facility] Jan, Leiomyoma of uterus, [facility] unspecified D25.9 and [place], [place] [id number] Polycystic ovarian syndrome E28.[address] [facility] [place] [facility] 103 Aug, Other abnormal and [facility] inconclusive findings on [place], [place] [id number] diagnostic imaging of breast R92.[address] [facility] [place] [facility] 103 Aug, Leiomyoma of uterus, [facility] unspecified D25.9 ; Abscess [place], [place] [id number] of vulva N76.4 and Family history of malignant neoplasm of breast Z80.[address] [facility] [place] [facility] 103 Aug, Polycystic ovarian syndrome [facility] E28.2 and Leiomyoma of [place], [place] [address] uterus, unspecified D25.9 [facility] [address] 29 Jul, 2017 Abscess of vulva N76.4 [place] [id number] [facility] [address] 22 Jul, 2017 Abscess of vulva N76.4 [place] [id number] [facility] [address] 19 Jul, 2017 [place] [address] [facility] Jul, [place] [id number] [facility] 103 Jun, Family history of malignant [facility] neoplasm of breast Z80.3 [place], [place] [id number] and Other abnormal and inconclusive findings on diagnostic imaging of breast R92.8 [facility] 103 Jun, [place] [id number] [facility] 103 Mar, Polycystic ovarian syndrome [facility] E28.2 ; Family history [place] [id number] malignant neoplasm of breast Z80.3 and Family history of malignant neoplasm of digestive organs Z80.0 [facility] 103 Mar, [facility]cystic [facility] syndrome [facility] E28.2 [place], [place] [id number] [facility] [address] Feb, [place] [id number] [facility] [address] Jan, [place] [id number] [facility] 103 Jan, Encounter for gynecological [facility] examination (general) [place], [place] [id number] (routine) with abnormal findings Z01.411 ; Polycystic ovarian syndrome E28.2 ; Female infertility, unspecified N97.9 ; Candidiasis of skin and nail B37.2 ; Family history of malignant neoplasm of breast Z80.3 and Body mass index (BMI) 40.0-44.9, adult Z68.41 [facility] Dec, [place] [id number] [facility] Nov, [place] [id number] [facility] Oct, [place] [id number] [facility] [address] Aug, Encounter for gynecological [facility] examination (general) [place], [place] [id number] (routine) with abnormal findings Z01.411 ; Polycystic ovarian syndrome E28.2 ; Nonscarring hair loss, unspecified L65.9 and Body mass index (BMI) 34.0-34.9, adult Z68.34 [facility] Jul, [place] [id number] [facility] Jun, Polycystic ovarian syndrome [facility] E28.2 [place] [id number] [facility] Mar, [place], [place] [id number] 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 Nov, [place] [id number] [facility] 103 Oct, Menometrorrhagia 626.2 [place] [id number] [facility] 103 Oct, Menometrorrhagia 626.2 [place] [id number] [facility] 103 Oct, PELVIC PAIN 625.[address] [facility] Menometrorrhagia 626.2 [place], [place] [id number] [facility] 103 Oct, O[place], [place] [id number] [facility] 103 Oct, Menometrorrhagia 626.2 [place] [id number] [facility] 103 Oct, PELVIC PAIN 625.[address] [facility] Menometrorrhagia 626.2 [place], [place] [id number] [facility] 103 Jun, [place] [id number] [facility] 103 Jun, [place] [id number] [facility] 103 Jun, [place], [place] [id number] [facility] 103 Jun, [place] [id number] [facility] 103 September, [place] [id number] [facility] 103 Aug, FAMILY HX-BREAST MALIG OBGYN 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 V72.31 and Yeast infection [place], [place] [id number] 112.9 IMMUNIZATIONS No Known Immunizations SOCIAL HISTORY Never Assessed REASON FOR REFERRAL FUNCTIONAL STATUS PLAN OF CARE VITAL SIGNS MEDICATIONS Unknown Medications PROCEDURES No Known procedures RESULTS No Results REASON FOR VISIT RE:Re:RE:post hospitalization concerns Insurance Providers [facility] Health Member Patient Patient Patient Patient Patient Subscriber Subscriber Subscriber Group Insurance Plan Plan Plan Plan ID Relationship Address Phone Name Date of ID Name Date of No Type Insurance Insurance Insurance Coverage to Subscriber Address Phone Name Dates [employer] [address] [employer] self Pat [id number] [place] 1 Cross/Blue [place] Cross/Blue rtrand Shield [id number] Shield [employer] [address] [employer] Pat [id number] Blue [id number] 89 Blue [place] Cross/Blue [place] Cross/Blue rtrand Shield [id number] Shield MEDICAL (GENERAL) HISTORY Type Description Date Medical History fibromyalgia Medical History anxiety Medical History preclampsia Medical History heart failure (post ) Medical History fibroids Medical History IBS Medical History PCOS Medical History Ahsan Galo beast cancer risk > 20% Medical History anemia Surgical History 2003 Surgical History Hysteroscopy, D&C 12/26/18 Surgical History oral surgery 2009 Surgical History TLH/BS/cysto 04/2019 Surgical History Hysterectomy 04/2019 Hospitalization History see above
--- OUTSIDE RECORDS SUMMARY | 2019-07-15 07:38 | XMS REPORT | Continuity of Care Document ---
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 220(44Fe) mg/5ML do not give milk or Elixir calcium products Motrin Ib prn Unknown 200mg Capsules Vitamin B Complex take one every day Unknown Tablets Multivitamin Adult 1 by mouth every day Unknown Tablets Magnesium 1 tab by mouth every Unknown 300mg day as directed Capsules Vitamin D take one capsule Unknown (Ergocalciferol) once a week 1.25mg (84554 Ut) Capsules Celexa 1 by mouth every day Unknown 40mg Tablets Vitamin C Adult 2 gummies everyday Unknown Gummies 125mg Chewtabs Lasix 1 by mouth every day Unknown 20mg Tablets Zofran 1 tab by mouth three Unknown 4mg Tablets times a day as needed for nausea Xanax 1-2 tab by mouth Unknown 0.25mg Tablets twice a day as needed for panic Immunizations Description No Information Available Vital Signs Date Vital Result Comment 06/08/2019 1:23pm BP Systolic 137 mmHg BP Diastolic 84 mmHg Body Temperature 98.0 F Heart Rate 84 /min Respiratory Rate 18 /min Height 69.5 inches 5'9.50" Weight 276.38 lb Pain Level 4 whole body BMI (Body Mass Index) 40.2 kg/m2 BSA (Body Surface Area) 2.38 m2 [place] body weight in kilograms 67 kg O2 % BldC Oximetry 96 % Results Description No Information Available Procedures Description No Information Available Medical Devices Description No Information Available Encounters Description No Information Available Assessments Date Code Description Provider 06/08/2019 D64.9 Anemia, unspecified Zoe Pettit, 06/08/2019 E61.1 Iron deficiency Zoe Pettit DO 06/08/2019 N94.6 Dysmenorrhea, unspecified Zoe Pettit, 06/08/2019 K58.8 Other irritable bowel syndrome Zoe Pettit DO 06/08/2019 J01.80 Other acute sinusitis Zoe Pettit DO Plan of Treatment Future Appointment(s):06/11/2019 11:30 am - Oncology Nurse at Oncology Office Functional Status Description No Information Available Mental Status Description No Information Available Referrals Description No Information Available
--- OUTSIDE RECORDS SUMMARY | 2019-07-15 07:38 | XMS REPORT ---
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 Problem Leiomyoma of D25.9 Active 36405322 uterus, unspecified Problem Family history of Z80.3 Active 334157659 malignant neoplasm of breast Problem Fibromyalgia M79.7 Active 585724450 Problem Unspecified lump in N63.21 Active [id number] the left breast, upper outer quadrant Problem 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 84462181 chronicus Problem Dysuria R30.0 Active 67742991 Problem Noninflammatory N90.9 Active 936035523 disorder of vulva and perineum, unspecified Problem Acute vaginitis N76.0 Active 52080030 Problem Other abnormal and R92.8 Active 760879451 inconclusive findings on diagnostic imaging of breast Problem Disorder of the L98.9 Active 24189890 skin and subcutaneous tissue, unspecified Problem Endometriosis of N80.0 Active 12289135 uterus Problem Disorder of breast, N64.9 Active 85806833 unspecified Problem Secondary N94.5 Active 02826869 dysmenorrhea ALLERGIES No Information ENCOUNTERS Encounter Location Date Diagnosis [facility] [address] Feb, [place], [place] [id number] [facility] [address] Aug, [place], [place] [id number] [facility] [address] May, [place], [place] [id number] [facility] [address] May, [place] [id number] [facility] [address] May, [place] [id number] [facility] [address] May, [place] [id number] [facility] [address] May, [place] [id number] [facility] [address] May, [place] [id number] [facility] [address] May, [place], [place] [id number] [facility] [address] May, Acute vaginitis N76.0 [place] [id number] [facility] [address] May, Dysuria R30.0 and Lichen [facility] simplex chronicus L28.0 [place] [id number] [facility] [address] May, [place], [place] [id number] [facility] [address] May, [place], [place] [id number] [facility] 103 Apr, Excessive and frequent [facility] menstruation with regular [place], [place] [id number] cycle N92.0 ; Secondary dysmenorrhea N94.5 ; Leiomyoma of uterus, unspecified D25.9 ; Family history of malignant neoplasm of breast Z80.3 and Endometriosis of uterus N80.0 [facility] [address] Apr, [place] [id number] [facility] Apr, Excessive and frequent [facility] menstruation with regular [place], [place] [id number] cycle N92.0 [place] [address] Apr, Excessive and frequent [facility] [place] [id number] menstruation with regular cycle N92.0 ; Secondary dysmenorrhea N94.5 and Leiomyoma of uterus, unspecified D25.9 [facility] [address] Apr, [place] [id number] [facility] Mar, Excessive and frequent [facility] menstruation with regular [place], [place] [id number] cycle N92.0 ; Polycystic ovarian syndrome E28.2 ; Leiomyoma of uterus, unspecified D25.9 ; Family history of malignant neoplasm of breast Z80.3 ; Lichen simplex chronicus L28.0 ; Endometriosis of uterus N80.0 and Acute vaginitis N76.0 [facility] Mar, [place] [id number] [facility] Mar, Acute vaginitis N76.0 and [facility] Dysuria R30.0 [place], [place] [id number] [facility] Feb, Encounter for gynecological [facility] examination (general) [place], [place] [id number] (routine) with abnormal findings Z01.411 ; Excessive and frequent menstruation with regular cycle N92.0 ; Lichen simplex chronicus L28.0 ; Polycystic ovarian syndrome E28.2 ; Leiomyoma of uterus, unspecified D25.9 ; Family history of malignant neoplasm of breast Z80.3 and Endometriosis of uterus N80.0 [facility] Feb, Leiomyoma of uterus, OBGYN [facility] unspecified D25.9 [place], [place] [id number] [facility] 103 Feb, Disorder of breast, OBGYN [facility] unspecified N64.9 [place], [place] [id number] [facility] [address] Feb, OBGYN [place], [place] [id number] [place] [facility] Jan, Lichen simplex chronicus [address] [place], L28.0 and Disorder of [place] [id number] breast, unspecified N64.9 [facility] [address] Jan, OBGYN [place] [id number] [facility] 103 Dec, OBGYN [place], [place] [id number] [facility] 103 Dec, [facility] with regular [place] [id number] cycle N92.0 ; Polycystic ovarian syndrome E28.2 ; Leiomyoma of uterus, unspecified D25.9 ; Family history of malignant neoplasm of breast Z80.3 ; Lichen simplex chronicus L28.0 and Endometriosis of uterus N80.0 [place] [address] Dec, Excessive and frequent [facility] [place] [id number] menstruation with regular cycle N92.0 ; Leiomyoma of uterus, unspecified D25.9 and Polycystic ovarian syndrome E28.2 [facility] [address] Nov, OBGYN [place], [place] [id number] [facility] 103 Nov, Excessive and frequent [facility]ation with regular [place] [id number] cycle N92.0 [facility] 103 Nov, Excessive and frequent OBG[facility] menstruation with regular [place], [place] [id number] cycle N92.0 ; Polycystic ovarian syndrome E28.2 and Leiomyoma of uterus, unspecified D25.9 [facility] 103 Nov, OBGYN [place] [id number] [facility] 103 Oct, OBG[place], [place] [id number] [facility] 103 Oct, Excessive and frequent [facility] with regular [place] [id number] cycle N92.0 ; Polycystic ovarian syndrome E28.2 ; Leiomyoma of uterus, unspecified D25.9 ; Family history of malignant neoplasm of breast Z80.3 and Lichen simplex chronicus L28.0 [facility] 103 Oct, Disorder of the skin and [facility] subcutaneous tissue, [place] [id number] unspecified L98.9 [facility] [address] September, OBG[place], [place] [id number] [facility] 103 September, OBG[place] [id number] [facility] 103 September, Excessive and frequent OBGYN [facility] menstruation with regular [place], [place] [id number] cycle N92.0 [facility] 103 Aug, Family history of malignant [facility] neoplasm of breast Z80.3 [place], [place] [id number] and Unspecified lump in the left breast, upper outer quadrant N63.21 [facility] 103 Feb, OBGYN [place] [id number] [facility] 103 Feb, Lichen simplex chronicus [facility] L28.0 ; Family history [place], [place] [id number] malignant neoplasm of breast Z80.3 and Unspecified lump in the left breast, upper outer quadrant N63.21 [facility] [address] Feb, Noninflammatory disorder [facility] vulva and perineum, [place], [place] [id number] unspecified N90.9 [facility] Feb, Other abnormal and [facility] inconclusive findings on [place], [place] [id number] diagnostic imaging of breast R92.8 [facility] 103 Feb, [place] [id number] [facility] Feb, Noninflammatory disorder of [facility] vulva and perineum, [place], [place] [id number] unspecified N90.9 [facility] 103 Jan, [place] [id number] [facility] 103 Jan, Encounter for gynecological [facility] examination (general) [place], [place] [id number] (routine) with abnormal findings Z01.411 ; Other [...] disorder of vulva and perineum, unspecified N90.9 [facility] 103 Jan, Leiomyoma of uterus, [facility] unspecified D25.9 and [place], [place] [id number] Polycystic ovarian syndrome E28.2 [facility] 103 Aug, Other abnormal and [facility] inconclusive findings on [place], [place] [id number] diagnostic imaging of breast R92.8 [facility] 103 Aug, Leiomyoma of uterus, [facility] unspecified D25.9 ; Abscess [place], [place] [id number] of vulva N76.4 and Family history of malignant neoplasm of breast Z80.3 [facility] 103 Aug, Polycystic ovarian syndrome [facility] E28.2 and Leiomyoma of [place], [place] [id number] uterus, unspecified D25.9 [facility] [address] 29 Jul, 2017 Abscess of vulva N76.4 [place] [id number] [facility] [address] 22 Jul, 2017 Abscess of vulva N76.4 [place] [id number] [facility] [address] 19 Jul, 2017 [place] [id number] [facility] [address] Jul, [place] [id number] [facility] 103 Jun, Family history of malignant [facility] neoplasm of breast Z80.3 [place], [place] [id number] and Other abnormal and inconclusive findings on diagnostic imaging of breast R92.8 [facility] [address] Jun, [place] [id number] [facility] 103 Mar, Polycystic ovarian syndrome [facility] E28.2 ; Family history [place], [place] [id number] malignant neoplasm of breast Z80.3 and Family history of malignant neoplasm of digestive organs Z80.0 [facility] 103 Mar, [facility]cystic ovarian syndrome [facility] E28.2 [place], [place] [id number] [facility] [address] Feb, [place] [id number] [facility] [address] Jan, [place] [id number] [facility] [address] Jan, Encounter for gynecological [facility] examination (general) [place], [place] [id number] (routine) with abnormal findings Z01.411 ; Polycystic ovarian syndrome E28.2 ; Female infertility, unspecified N97.9 ; Candidiasis of skin and nail B37.2 ; Family history of malignant neoplasm of breast Z80.3 and Body mass index (BMI) 40.0-44.9, adult Z68.41 [facility] Dec, [place] [id number] [facility] Nov, [place] [id number] [facility] Oct, [place] [id number] [facility] [address] Aug, Encounter for gynecological [facility] examination (general) [place], [place] [id number] (routine) with abnormal findings Z01.411 ; Polycystic ovarian syndrome E28.2 ; Nonscarring hair loss, unspecified L65.9 and Body mass index (BMI) 34.0-34.9, adult Z68.34 [facility] Jul, [place] [id number] [facility] Jun, Polycystic ovarian syndrome [facility] E28.2 [place], [place] [id number] [facility] [address] Mar, [place], [place] [id number] 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 [address] Nov, OBG[place], [place] [id number] [facility] 103 Oct, Menometrorrhagia 626.2 O[place] [id number] [facility] 103 Oct, Menometrorrhagia 626.2 OBGYN [place], [place] [id number] [facility] 103 Oct, PELVIC PAIN 625.9 and OBGYN [facility] Menometrorrhagia 626.2 [place], [place] [id number] [facility] 103 Oct, OBGYN [place], [place] [id number] [facility] 103 Oct, Menometrorrhagia 626.2 OBGYN [place], [place] [id number] [facility] 103 Oct, PELVIC PAIN 625.9 and OBGYN [facility] Menometrorrhagia 626.2 [place], [place] [id number] [facility] 103 Jun, OBG[place], [place] [id number] [facility] [address] Jun, [place] [id number] [facility] 103 Jun, O[place] [id number] [facility] 103 Jun, [place] [id number] [facility] 103 September, OBG[place], [place] [id number] [facility] 103 Aug, FAMILY HX-BREAST MALIG OBGYN [facility] V16.3 [place], [place] [id number] [facility] [address] Aug, ROUTINE CERAMIST EXAMINATION OBGYN [facility] V72.31 and Yeast infection [place], [place] [id number] 112.9 IMMUNIZATIONS No Known Immunizations SOCIAL HISTORY Never Assessed REASON FOR REFERRAL FUNCTIONAL STATUS PLAN OF CARE VITAL SIGNS MEDICATIONS Unknown Medications PROCEDURES No Known procedures RESULTS No Results REASON FOR VISIT returning call Insurance Providers [facility] Health Member Patient Patient Patient Patient Patient Subscriber Subscriber Subscriber Group Insurance Plan Plan Plan Plan ID Relationship Address Phone Name Date of ID Name Date of No Type Insurance Insurance Insurance Coverage to Subscriber Address Phone Name Dates [employer] [phone] [employer] [place] [id number] Blue [id number] [place]Blue r[place]and Shield [id number] Shield [place] [phone] [employer] self Pat [id number] Blue [id number] 89 [place] 1 [place] [id number] Shield MEDICAL (GENERAL) HISTORY Type Description Date Medical History fibromyalgia Medical History anxiety Medical History preclampsia Medical History heart failure (post ) Medical History fibroids Medical History IBS Medical History PCOS Medical History Ahsan Galo beast cancer risk > 20% Medical History anemia Surgical History 2003 Surgical History Hysteroscopy, D&C 12/26/18 Surgical History oral surgery 2010 Surgical History TLH/BS/cysto 04/2019 Surgical History Hysterectomy 04/2019 Hospitalization History see above
--- OUTSIDE RECORDS SUMMARY | 2019-07-15 07:38 | XMS REPORT ---
:1980 Author Organization [facility] Address [address] [place] [address] Care Team Providers Name Role Phone Radha Andrade Unavailable Unavailable PROBLEMS Type Condition ICD9-CM [id number] Onset Condition SNOMED Code Code Code Dates Status Problem Polycystic ovarian E28.2 Active 81616688 syndrome Problem Excessive and N92.0 Active 996274782 frequent menstruation with regular cycle Problem Body mass index Z68.41 Active 621807366 (BMI) 40.0-44.9, adult Problem Other specified E16.8 Active 035198279 disorders of pancreatic internal secretion Problem Leiomyoma of D25.9 Active 39471211 uterus, unspecified Problem Family history of Z80.3 Active 757120026 malignant neoplasm of breast Problem Fibromyalgia M79.7 Active 058081316 Problem Unspecified lump in N63.21 Active [id number] the left breast, upper outer quadrant Problem 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 83460416 chronicus Problem Dysuria R30.0 Active 93449206 Problem Noninflammatory N90.9 Active 941905371 disorder of vulva and perineum, unspecified Problem Acute vaginitis N76.0 Active 86113244 Problem Other abnormal and R92.8 Active 193788878 inconclusive findings on diagnostic imaging of breast Problem Disorder of the L98.9 Active 67541718 skin and subcutaneous tissue, unspecified Problem Endometriosis of N80.0 Active 45607731 uterus Problem Disorder of breast, N64.9 Active 53030090 unspecified Problem Secondary N94.5 Active 31838774 dysmenorrhea ALLERGIES No Information ENCOUNTERS Encounter Location Date Diagnosis [facility] [address] Feb, [place], [place] [id number] [facility] [address] Aug, [place], [place] [id number] [facility] [address] May, [place], [place] [id number] [facility] [address] May, [place] [id number] [facility] 103 May, [place] [id number] [facility] [address] May, [place] [id number] [facility] [address] May, [place] [id number] [facility] [address] May, [place] [id number] [facility] [address] May, [place] [id number] [facility] 103 May, Acute vaginitis N76.0 [place] [id number] [facility] [address] May, Dysuria R30.0 and [place] [facility] simplex chronicus L28.0 [place] [id number] [facility] [address] May, [place] [id number] [facility] [address] May, [place] [id number] [facility] 103 Apr, Excessive and frequent [facility] menstruation with regular [place], [place] [id number] cycle N92.0 ; Secondary dysmenorrhea N94.5 ; Leiomyoma of uterus, unspecified D25.9 ; Family history of malignant neoplasm of breast Z80.3 and Endometriosis of uterus N80.0 [facility] 103 Apr, [place] [id number] [facility] Apr, Excessive and frequent [facility] menstruation with regular [place], [place] [id number] cycle N92.0 [place] [address] Apr, Excessive and frequent [facility] [place] [id number] menstruation with regular cycle N92.0 ; Secondary dysmenorrhea N94.5 and Leiomyoma of uterus, unspecified D25.9 [facility] [address] Apr, [place] [id number] [facility] Mar, Excessive and frequent [facility] menstruation with regular [place], [place] [id number] cycle N92.0 ; Polycystic ovarian syndrome E28.2 ; Leiomyoma of uterus, unspecified D25.9 ; Family history of malignant neoplasm of breast Z80.3 ; Lichen simplex chronicus L28.0 ; Endometriosis of uterus N80.0 and Acute vaginitis N76.0 [facility] [address] Mar, [place] [id number] [facility] 103 Mar, [facility]initis N76.0 [facility] Dys[facility] R30.0 [place] [id number] [facility] 103 Feb, Encounter for gynecological [facility] examination (general) [place], [place] [id number] (routine) with abnormal findings Z01.411 ; Excessive and frequent menstruation with regular cycle N92.0 ; Lichen simplex chronicus L28.0 ; Polycystic ovarian syndrome E28.2 ; Leiomyoma of uterus, unspecified D25.9 ; Family history of malignant neoplasm of breast Z80.3 and Endometriosis of uterus N80.0 [facility] Feb, Leiomyoma of uterus, OBGYN [facility] unspecified D25.9 [place] [id number] [facility] 103 Feb, Disorder of breast, OBGYN [facility] unspecified N64.9 [place] [id number] [facility] [address] Feb, O[place] [id number] [facility] Jan, Lichen simplex chronicus [address] [place], L28.0 [place] [id number] breast, unspecified N64.9 [facility] [address] Jan, [place] [id number] [facility] 103 Dec, [place] [id number] [facility] 103 Dec, [facility]cessive and [facility] with regular [place] [id number] cycle N92.0 ; Polycystic ovarian syndrome E28.2 ; Leiomyoma of uterus, unspecified D25.9 ; Family history of malignant neoplasm of breast Z80.3 ; Lichen simplex chronicus L28.0 and Endometriosis of uterus N80.0 [place] [address] Dec, Excessive and frequent [facility] [place] [id number] menstruation with regular cycle N92.0 ; Leiomyoma of uterus, unspecified D25.9 and Polycystic ovarian syndrome E28.2 [facility] 103 Nov, [place] [id number] [facility] 103 Nov, Excessive and frequent [facility]ation with regular [place] [id number] cycle N92.0 [facility] 103 Nov, Excessive and frequent OBGYN [facility] menstruation with regular [place], [place] [id number] cycle N92.0 ; Polycystic ovarian syndrome E28.2 and Leiomyoma of uterus, unspecified D25.9 [facility] 103 Nov, [place] [id number] [facility] 103 Oct, [place] [id number] [facility] 103 Oct, Excessive and frequent [facility] menstruation with regular [place] [id number] cycle N92.0 ; Polycystic ovarian syndrome E28.2 ; Leiomyoma of uterus, unspecified D25.9 ; Family history of malignant neoplasm of breast Z80.3 and Lichen simplex chronicus L28.0 [facility] 103 Oct, Disorder of the [facility] and [facility], [place] [id number] unspecified L98.9 [facility] 103 September, [place] [id number] [facility] 103 September, [place] [id number] [facility] 103 September, Excessive and frequent OBGYN [facility] menstruation with regular [place], [place] [id number] cycle N92.0 [facility] 103 Aug, Family history of malignant [facility] neoplasm of breast Z80.3 [place], [place] [id number] and Unspecified lump in the left breast, upper outer quadrant N63.21 [facility] 103 Feb, [place] [id number] [facility] 103 Feb, Lichen simplex chronicus [facility] L28.0 ; Family history [place] [id number] malignant neoplasm of breast Z80.3 and Unspecified lump in the left breast, upper outer quadrant N63.21 [facility] [address] Feb, Noninflammatory [facility] vulva and perineum, [place] [id number] unspecified N90.9 [facility] Feb, Other abnormal and [facility] inconclusive findings on [place], [place] [id number] diagnostic imaging of breast R92.8 [facility] 103 Feb, [place] [id number] [facility] 103 Feb, Noninflammatory disorder of [facility] vulva and perineum, [place] [id number] unspecified N90.9 [facility] Jan, [place] [id number] [facility] 103 Jan, Encounter for gynecological [facility] examination (general) [place], [place] [id number] (routine) with abnormal findings Z01.411 ; Other [...] disorder of vulva and perineum, unspecified N90.9 [facility] 103 Jan, Leiomyoma of uterus, [facility] unspecified D25.9 and [place], [place] [id number] Polycystic ovarian syndrome E28.2 [facility] 103 Aug, Other abnormal and [facility] inconclusive findings on [place] [id number] diagnostic imaging of breast R92.8 [facility] 103 Aug, Leiomyoma of uterus, [facility] unspecified D25.9 ; Abscess [place] [id number] of vulva N76.4 and Family history of malignant neoplasm of breast Z80.3 [facility] 103 Aug, Polycystic ovarian syndrome [facility] E28.2 and Leiomyoma of [place], [place] [id number] uterus, unspecified D25.9 [facility] [address] 29 Jul, 2017 Abscess of vulva N76.4 [place] [id number] [facility] [address] 22 Jul, 2017 Abscess of vulva N76.4 [place] [id number] [facility] [address] 19 Jul, 2017 [place] [id number] [facility] [address] Jul, [place] [id number] [facility] 103 Jun, Family history of malignant [facility] neoplasm of breast Z80.3 [place], [place] [id number] and Other abnormal and inconclusive findings on diagnostic imaging of breast R92.8 [facility] [address] Jun, [place] [id number] [facility] 103 Mar, Polycystic ovarian syndrome [facility] E28.2 ; Family history [place], [place] [id number] malignant neoplasm of breast Z80.3 and Family history of malignant neoplasm of digestive organs Z80.0 [facility] 103 Mar, [facility]cystic ovarian syndrome [facility] E28.2 [place] [id number] [facility] [address] Feb, [place] [id number] [facility] 103 Jan, [place] [id number] [facility] [address] Jan, Encounter for gynecological [facility] examination (general) [place], [place] [id number] (routine) with abnormal findings Z01.411 ; Polycystic ovarian syndrome E28.2 ; Female infertility, unspecified N97.9 ; Candidiasis of skin and nail B37.2 ; Family history of malignant neoplasm of breast Z80.3 and Body mass index (BMI) 40.0-44.9, adult Z68.41 [facility] Dec, [place] [id number] [facility] Nov, [place] [id number] [facility] Oct, [place] [id number] [facility] 103 Aug, Encounter for gynecological [facility] examination (general) [place], [place] [id number] (routine) with abnormal findings Z01.411 ; Polycystic ovarian syndrome E28.2 ; Nonscarring hair loss, unspecified L65.9 and Body mass index (BMI) 34.0-34.9, adult Z68.34 [facility] Jul, [place] [id number] [facility] Jun, Polycystic ovarian syndrome [facility] E28.2 [place] [id number] [facility] Mar, [place], [place] [id number] [facility] [address] Feb, Other specified conditions [facility] associated with female [place], [place] [id number] genital organs and menstrual cycle N94.89 ; Excessive and frequent menstruation with regular cycle N92.0 ; 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 ; Polycystic ovarian syndrome E28.2 and Body mass index (BMI) 39.0-39.9, adult Z68.39 [facility] 103 Nov, PELVIC PAIN 625.9 ; [facility] Menometrorrhagia 626.2 and [place], [place] [id number] Hyperinsulinism 251.1 [facility] [address] Nov, [place] [id number] [facility] 103 Oct, Menometrorrhagia 626.2 [place] [id number] [facility] 103 Oct, Menometrorrhagia 626.2 [place] [id number] [facility] 103 Oct, PELVIC PAIN 625.9 and OBGYN [facility] Menometrorrhagia 626.2 [place], [place] [id number] [facility] 103 Oct, [place], [place] [id number] [facility] 103 Oct, Menometrorrhagia 626.2 [place], [place] [id number] [facility] 103 Oct, PELVIC PAIN 625.9 and OBGYN [facility] Menometrorrhagia 626.2 [place], [place] [id number] [facility] 103 Jun, [place] [id number] [facility] 103 Jun, [place] [id number] [facility] 103 Jun, [place] [id number] [facility] 103 Jun, [place], [place] [id number] [facility] 103 September, [place] [id number] [facility] 103 Aug, FAMILY HX-BREAST MALIG OBGYN [facility] V16.3 [place], [place] [id number] [facility] [address] Aug, ROUTINE 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 OBGYN [facility] V72.31 and Yeast infection [place], [place] [id number] 112.9 IMMUNIZATIONS No Known Immunizations SOCIAL HISTORY Never Assessed REASON FOR REFERRAL FUNCTIONAL STATUS PLAN OF CARE VITAL SIGNS MEDICATIONS Unknown Medications PROCEDURES No Known procedures RESULTS No Results REASON FOR VISIT post hospitalization concerns Insurance Providers [facility] Health Member Patient Patient Patient Patient Patient Subscriber Subscriber Subscriber Group Insurance Plan Plan Plan Plan ID Relationship Address Phone Name Date of ID Name Date of No Type Insurance Insurance Insurance Coverage to Subscriber Address Phone Name Dates [employer] [address] [employer] self Pat [id number] [place] 1 Cross[place]Blue r[place]and Shield [id number] Shield [place] [address] [employer] Pat [id number] Blue [id number] 89 Blue [place] Shield [id number] Shield MEDICAL (GENERAL) HISTORY Type Description Date [...]
--- OUTSIDE RECORDS SUMMARY | 2019-07-15 07:38 | XMS REPORT ---
:[address] 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 Problem Leiomyoma of D25.9 Active 69457896 uterus, unspecified Problem Family history of Z80.3 Active 405928918 malignant neoplasm of breast Problem Fibromyalgia M79.7 Active 501022651 Problem Unspecified lump in N63.21 Active [id number] the left breast, upper outer quadrant Problem 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 34308024 chronicus Problem Dysuria R30.0 Active 13488808 Problem Noninflammatory N90.9 Active 197326978 disorder of vulva and perineum, unspecified Problem Acute vaginitis N76.0 Active 75115384 Problem Other abnormal and R92.8 Active 360021262 inconclusive findings on diagnostic imaging of breast Problem Disorder of the L98.9 Active 83870168 skin and subcutaneous tissue, unspecified Problem Endometriosis of N80.0 Active 91685479 uterus Problem Disorder of breast, N64.9 Active 01095162 unspecified Problem Secondary N94.5 Active 47686916 dysmenorrhea ALLERGIES No Information ENCOUNTERS Encounter Location Date Diagnosis [facility] [address] Feb, [place], [place] [id number] [facility] [address] Aug, [place], [place] [id number] [facility] [address] May, [place], [place] [id number] [facility] [address] May, [place] [id number] [facility] [address] May, [place] [id number] [facility] [address] May, [place], [place] [id number] [facility] [address] May, [place], [place] [id number] [facility] [address] May, [place], [place] [id number] [facility] [address] May, [place], [place] [id number] [facility] 103 May, Acute vaginitis N76.0 [place] [id number] [facility] [address] May, Dysuria R30.0 and Lichen [facility] simplex chronicus L28.0 [place], [place] [id number] [facility] [address] May, [place], [place] [id number] [facility] [address] May, [place], [place] [id number] [facility] 103 Apr, Excessive and frequent [facility] menstruation with regular [place], [place] [id number] cycle N92.0 ; Secondary dysmenorrhea N94.5 ; Leiomyoma of uterus, unspecified D25.9 ; Family history of malignant neoplasm of breast Z80.3 and Endometriosis of uterus N80.0 [facility] 103 Apr, [place] [id number] [facility] Apr, Excessive and frequent [facility] menstruation with regular [place], [place] [id number] cycle N92.0 [place] [address] Apr, Excessive and frequent [facility] [place] [id number] menstruation with regular cycle N92.0 ; Secondary dysmenorrhea N94.5 and Leiomyoma of uterus, unspecified D25.9 [facility] [address] Apr, [place] [id number] [facility] Mar, Excessive and frequent [facility] menstruation with regular [place], [place] [id number] cycle N92.0 ; Polycystic ovarian syndrome E28.2 ; Leiomyoma of uterus, unspecified D25.9 ; Family history of malignant neoplasm of breast Z80.3 ; Lichen simplex chronicus L28.0 ; Endometriosis of uterus N80.0 and Acute vaginitis N76.0 [facility] Mar, [place] [id number] [facility] Mar, Acute vaginitis N76.0 [facility] Dysuria R30.0 [place] [id number] [facility] Feb, Encounter for gynecological [facility] examination (general) [place], [place] [id number] (routine) with abnormal findings Z01.411 ; Excessive and frequent menstruation with regular cycle N92.0 ; Lichen simplex chronicus L28.0 ; Polycystic ovarian syndrome E28.2 ; Leiomyoma of uterus, unspecified D25.9 ; Family history of malignant neoplasm of breast Z80.3 and Endometriosis of uterus N80.0 [facility] Feb, Leiomyoma of uterus, OBGYN [facility] unspecified D25.9 [place] [id number] [facility] 103 Feb, Disorder of breast, OBGYN [facility] unspecified N64.9 [place], [place] [id number] [facility] 103 Feb, OBGYN [place], [place] [id number] [place] [facility] Jan, Lichen simplex chronicus [address] [place], L28.0 and Disorder [place] [id number] breast, unspecified N64.9 [facility] [address] Jan, OBG[place] [id number] [facility] 103 Dec, OBG[place] [id number] [facility] 103 Dec, [facility] and [facility] with regular [place], [place] [id number] cycle N92.0 ; Polycystic ovarian syndrome E28.2 ; Leiomyoma of uterus, unspecified D25.9 ; Family history of malignant neoplasm of breast Z80.3 ; Lichen simplex chronicus L28.0 and Endometriosis of uterus N80.0 [place] [address] Dec, Excessive and frequent [facility] [place] [id number] menstruation with regular cycle N92.0 ; Leiomyoma of uterus, unspecified D25.9 and Polycystic ovarian syndrome E28.2 [facility] 103 Nov, OBG[place], [place] [id number] [facility] 103 Nov, Excessive and frequent [facility]ation with regular [place] [address] cycle N92.0 [facility] 103 Nov, Excessive and frequent OBGYN [facility] menstruation with regular [place], [place] [id number] cycle N92.0 ; Polycystic ovarian syndrome E28.2 and Leiomyoma of uterus, unspecified D25.9 [facility] 103 Nov, OBG[place] [id number] [facility] 103 Oct, OBGYN [place], [place] [id number] [facility] 103 Oct, Excessive and frequent [facility] menstruation with regular [place] [id number] cycle N92.0 ; Polycystic ovarian syndrome E28.2 ; Leiomyoma of uterus, unspecified D25.9 ; Family history of malignant neoplasm of breast Z80.3 and Lichen simplex chronicus L28.0 [facility] 103 Oct, Disorder of the skin and [facility] subcutaneous tissue, [place], [place] [id number] unspecified L98.9 [facility] 103 September, OBGYN [place], [place] [id number] [facility] 103 September, OBG[place] [id number] [facility] 103 September, Excessive and frequent OBGYN [facility] menstruation with regular [place], [place] [id number] cycle N92.0 [facility] 103 Aug, Family history of malignant [facility] neoplasm of breast Z80.3 [place], [place] [id number] and Unspecified lump in the left breast, upper outer quadrant N63.21 [facility] 103 Feb, OBG[place] [id number] [facility] 103 Feb, Lichen simplex chronicus [facility] L28.0 ; Family history of [place] [id number] malignant neoplasm of breast Z80.3 and Unspecified lump in the left breast, upper outer quadrant N63.21 [facility] 103 Feb, Noninflammatory disorder of [facility] vulva and perineum, [place], [place] [id number] unspecified N90.9 [facility] Feb, Other abnormal and [facility] inconclusive findings on [place], [place] [id number] diagnostic imaging of breast R92.8 [facility] 103 Feb, [place] [id number] [facility] Feb, Noninflammatory disorder of [facility] vulva and perineum, [place], [place] [id number] unspecified N90.9 [facility] 103 Jan, [place] [id number] [facility] 103 Jan, Encounter for gynecological [facility] examination (general) [place], [place] [id number] (routine) with abnormal findings Z01.411 ; Other [...] disorder of vulva and perineum, unspecified N90.9 [facility] 103 Jan, Leiomyoma of uterus, [facility] unspecified D25.9 and [place], [place] [id number] Polycystic ovarian syndrome E28.2 [facility] 103 Aug, Other abnormal and [facility] inconclusive findings on [place], [place] [id number] diagnostic imaging of breast R92.8 [facility] 103 Aug, Leiomyoma of uterus, [facility] unspecified D25.9 ; Abscess [place], [place] [id number] of vulva N76.4 and Family history of malignant neoplasm of breast Z80.3 [facility] 103 Aug, Polycystic ovarian syndrome [facility] E28.2 and Leiomyoma of [place], [place] [address] uterus, unspecified D25.9 [facility] 103 29 Jul, 2017 Abscess of vulva N76.4 [place] [id number] [facility] 103 22 Jul, 2017 Abscess of vulva N76.4 [place] [id number] [facility] 103 19 Jul, 2017 [place] [id number] [facility] 103 Jul, [place] [id number] [facility] 103 Jun, Family history of malignant [facility] neoplasm of breast Z80.3 [place], [place] [id number] and Other abnormal and inconclusive findings on diagnostic imaging of breast R92.8 [facility] [address] Jun, [place] [id number] [facility] 103 Mar, Polycystic ovarian syndrome [facility] E28.2 ; Family history of [place], [place] [id number] malignant neoplasm of breast Z80.3 and Family history of malignant neoplasm of digestive organs Z80.0 [facility] 103 Mar, [facility]cystic [facility] syndrome [facility] E28.2 [place], [place] [id number] [facility] [address] Feb, [place] [id number] [facility] 103 Jan, [place] [id number] [facility] 103 Jan, Encounter for gynecological [facility] examination (general) [place], [place] [id number] (routine) with abnormal findings Z01.411 ; Polycystic ovarian syndrome E28.2 ; Female infertility, unspecified N97.9 ; Candidiasis of skin and nail B37.2 ; Family history of malignant neoplasm of breast Z80.3 and Body mass index (BMI) 40.0-44.9, adult Z68.41 [facility] Dec, [place], [place] [id number] [facility] Nov, [place] [id number] [facility] Oct, [place] [id number] [facility] Aug, Encounter for gynecological [facility] examination (general) [place], [place] [id number] (routine) with abnormal findings Z01.411 ; Polycystic ovarian syndrome E28.2 ; Nonscarring hair loss, unspecified L65.9 and Body mass index (BMI) 34.0-34.9, adult Z68.34 [facility] Jul, [place] [id number] [facility] 103 Jun, Polycystic ovarian syndrome [facility] E28.2 [place], [place] [id number] [facility] Mar, [place], [place] [id number] [facility] 103 Feb, Other specified conditions [facility] associated with female [place], [place] [id number] genital organs and menstrual cycle N94.89 ; Excessive and frequent menstruation with regular cycle N92.0 ; 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 ; Polycystic ovarian syndrome E28.2 and Body mass index (BMI) 39.0-39.9, adult Z68.39 [facility] 103 Nov, PELVIC PAIN 625.9 ; [facility] Menometrorrhagia 626.2 and [place], [place] [id number] Hyperinsulinism 251.1 [facility] Nov, O[place], [place] [id number] [facility] 103 Oct, Menometrorrhagia 626.2 [place], [place] [id number] [facility] 103 Oct, Menometrorrhagia 626.2 [place], [place] [id number] [facility] 103 Oct, PELVIC PAIN 625.[address] [facility] Menometrorrhagia 626.2 [place], [place] [id number] [facility] 103 Oct, OBG[place], [place] [id number] [facility] 103 Oct, Menometrorrhagia 626.2 [place], [place] [id number] [facility] 103 Oct, PELVIC PAIN 625.[address] [facility] Menometrorrhagia 626.2 [place], [place] [id number] [facility] 103 Jun, [place], [place] [id number] [facility] 103 Jun, OBGYN [place], [place] [id number] [facility] 103 Jun, O[place], [place] [id number] [facility] 103 Jun, OBG[place], [place] [id number] [facility] 103 September, [place]BG[place], [place] [id number] [facility] 103 Aug, FAMILY HX-BREAST MALIG OBGYN [facility] V16.3 [place], [place] [id number] [facility] 103 Aug, ROUTINE RETURN TO VENDOR EXAMINATION OBGYN [facility] V72.31 and Yeast infection [place], [place] [id number] 112.9 IMMUNIZATIONS No Known Immunizations SOCIAL HISTORY Never Assessed REASON FOR REFERRAL FUNCTIONAL STATUS PLAN OF CARE VITAL SIGNS MEDICATIONS Unknown Medications PROCEDURES No Known procedures RESULTS No Results REASON FOR VISIT RE:RE:Re:RE:post hospitalization concerns Insurance Providers [facility] Member Patient Patient Patient Patient Patient Subscriber Subscriber Subscriber Group Insurance Plan Plan Plan Plan ID Relationship Address Phone Name Date of ID Name Date of No Type Insurance Insurance Insurance Coverage to Subscriber Address Phone Name Dates [employer] [phone] [employer] Pat [id number] 89 [place] Cross/Blue r[place] Shield [id number] Shield [place] [phone] [employer] self Pat [id number] Blue [id number] 89 Blue [place] 1 Cross[place] Shield [id number] Shield MEDICAL (GENERAL) HISTORY Type Description Date [...]
--- OUTSIDE RECORDS SUMMARY | 2019-07-15 07:38 | XMS REPORT | Continuity of Care Document ---
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 Repairer Margie Reed NP - Adult Health Care Team Information Electromedical Equipment Repairer Job Reed MD - Family Medicine Care Team Information Electromedical Equipment Repairer [phone] Problems Description No Information Available Social History Type Date Description Comments Sex Unknown ETOH Use Denies alcohol use Tobacco Use Start: Unknown Patient has never smoked Recreational Drug Use Denies Drug Use Enjoy Exercising Enjoys Exercising Allergies, Adverse Reactions, Alerts Active Allergies Reaction Severity Comments Date Penicillin 08/30/2016 Lidocaine ineffective 01/15/2019 Medications Active Medications SIG Qnty Indications Ordering Date Provider Furosemide 1 by mouth 14tabs R60.9 Derek, 06/05/2019 20mg Tablets every day LEE Hanson Potassium Gluconate take 5 every [facility] 06/05/2019 2Meq day LEE Hanson Tablets Ondansetron HCL 1 by mouth q12 30tabs Derek, 06/05/2019 8mg hours as needed LEE Hanson Tablets Ferrous Sulfate take 17ml daily 1530units Derek, 02/27/2019 220(44Fe) LEE Hanson mg/5ML Elixir Alprazolam 1/2 by mouth 30tabs Derek, 01/15/2019 0.25mg Tablets three times a LEE Hanson day as needed Cpap needs cpap 1units G47.33 Derek, 02/20/2018 Device supplies LEE Hanson Hydrocortisone apply to 453.600gm A69.20 Derek 01/12/2018 2.5% affected areas LEE Hanson Ointment twice a day Citalopram 1 by mouth 90tabs Job Reed, 11/04/2016 Hydrobromide every day 40mg Tablets Physical Therapy evaluate and 12units M54.5 [facility], 09/13/2016 [facility] treat low back LEE Hanson pain Turmeric 2 by mouth at 60tabs [facility], 08/30/2016 500mg Tablets bedtime LEE Hanson One Daily For Women [facility], 08/30/2016 LEE Hanson Tablets Biotin 5000 1 po qd 60caps [facility], 08/30/2016 5mg Capsules LEE Hanson Vitamin D3 bid [facility], 08/30/2016 5000Unit LEE Hanson Capsules Magnesium bid 60caps [facility], 08/30/2016 500mg Capsules LEE Hanson Vitamin B-12 1 by mouth [facility], 08/30/2016 1000mcg every day LEE Hanson Tablets Ibuprofen 1 by mouth 90tabs [facility], 08/30/2016 800mg Tablets three times a LEE Hanson day as needed History Medications Benzonatate take one capsule 30caps Derek, 05/24/2019 - 200mg by mouth three LEE Hansno 06/05/2019 Capsules times every day as needed for cough Guaifenesin-Codeine 5-10 milliliters 120ml Derek, 05/24/2019 - every 4 hours as LEE Hanson 06/05/2019 100-10mg/5ML Solution needed cough Metronidazole 1 applicator full 70gm Derek, 04/12/2019 - 0.75% Gel at bedtime x 5 LEE Hanson 04/12/2019 days Clarithromycin 1 twice a day x 2 28tabs J02.9 Derek, 02/27/2019 - 500mg weeks LEE Hanson 04/12/2019 Tablets Ferrous Sulfate 17ml every day 1530units Derek, 02/27/2019 - LEE Hanson 02/27/2019 220(44Fe) mg/5ML Liquid Ferrous Sulfate take 24 mg of Derek, 02/27/2019 - elemental iron by LEE Hanson 02/27/2019 220(44Fe) mg/5ML mouth with juice Liquid three times a day Ferrous Sulfate 17ml every day 1530units Derek, 02/27/2019 - LEE Hanson 02/27/2019 220(44Fe) mg/5ML Liquid Ferrous Sulfate 12.5 milliliters 500ml Derek, 02/20/2019 - twice a day on an LEE Hanson 02/27/2019 300(60Fe) mg/5ML empty stomach with Syrup orange juice Medications Administered in Office Medication SIG Qnty Indications Ordering Provider Date PPD Margie Reed NP 09/20/2017 Injection Immunizations CPT Code Status Date Vaccine Lot # [id number] Given 01/12/2019 Tdap (Adacel) Ages 7 And Above Only 92444 Given 02/20/2018 Influenza Vac, Quadrivalent, Split, 0.5mL Dosage, [id number] Im Use [id number] Refused 04/12/2019 Afluria Or Fluvirin Flu Vac Intramuscular [id number] Refused 09/13/2016 Afluria Or Fluvirin Flu Vac Intramuscular Vital Signs Date Vital Result Comment 06/07/2019 11:45am Body Temperature 97.2 F Weight 281.00 lb Heart Rate 91 /min BP Systolic 138 mmHg BP Diastolic 80 mmHg Respiratory Rate 16 /min Height 69 inches 5'9" O2 % BldC Oximetry 96 % BMI (Body Mass Index) 41.5 kg/m2 06/05/2019 2:22pm Body Temperature 98.1 F Weight 287.31 lb Heart Rate 81 /min BP Systolic 140 mmHg BP Diastolic 80 mmHg Respiratory Rate 14 /min Height 69 inches 5'9" O2 % BldC Oximetry 98 % BMI (Body Mass Index) 42.4 kg/m2 Results Test Acquired Date Facility Test Result H/L Range Note Laboratory test 05/01/2019 [facility] Urine HCG NEGATIVE Negative 1, 2 finding (315)- - (Qualitati ve) Urinalysis With 04/27/2019 [facility] Urine Light-Yellow Yellow 3 Microscopic (315)- - Color Urine Clarity Slightly Cloudy Clear Urine Glucose - Dipstick NEGATIVE mg/dL Negative Urine Bilirubin - Dipstick NEGATIVE Negative Urine Ketone NEGATIVE mg/dL Negative Urine Specific Avenue 1.023 Normal 1.010-1.030 Urine Blood LARGE Abnormal Negative Urine PH 5.5 Low 6.5-7.5 Urine Protein - Dipstick NEGATIVE mg/dL Negative Urine Urobilinogen - Dipstick < 2.0 mg/dL < 2.0 Urine Nitrite - Dipstick NEGATIVE Negative Urine Leuk Esterase TRACE Abnormal Negative Urine RBC 3-5 rbc/hpf 0-2 Urine WBC 6-10 wbc/hpf 0-5 Urine Epithelial Cells MANY /lpf None Seen Urine Bacteria MODERATE Abnormal None Seen Source: URINE, CLEAN CAT <SEE NOTE> 4 Culture If 04/27/2019 [facility] Culture If CULTURE TO 5 Indicated Comment (315)- - Indicated Comment FOLLO <SEE NOTE> Source: URINE, CLEAN CAT <SEE NOTE> 6 CBC 04/27/2019 [facility] White Blood Count 5.6 K/uL Normal 3.1-10.7 (315)- - Red Blood Count 4.25 M/uL Normal 3.90-5.40 Hemoglobin 11.9 gm/dL Normal 11.6-15.8 Hematocrit 37.3 % Normal 36.0-46.1 Mean Cell Volume 87.8 fl Normal 80.9-99.0 Mean Corpuscular HGB 28.0 pg Normal 25.9-32.7 Mean Corpuscular HGB Conc 31.9 g/dL Normal 30.8-34.3 Platelet Count 247 K/uL Normal 155-360 Red Cell Distri Width SD 40.8 fl Normal 36-47 Red Cell Distri Width %CV 12.8 % Normal 11.7-14.4 Mean Platelet Volume 10.2 fl Normal 8.9-12.4 NRBC % 0.0 /100WBC < 10/ 100 WBC Basic Metabolic Panel 04/27/2019 [facility] Glucose 124 mg/dL High 74-106 (315)- - BUN 17 mg/dL Normal 7-18 Creatinine 0.8 mg/dL Normal 0.6-1.3 Glom Filtration Rate, Estimate >60 mL/min >60 If >60 mL/min >60 7 BUN/Creat 21.2 ratio Sodium 137 mmol/L Normal 136-145 Potassium 3.9 mmol/L Normal 3.5-5.1 Chloride 106 mmol/L Normal 98-107 Carbon Dioxide 24 mmol/L Normal 21-32 Anion Gap 7 mEq/L Low 8-16 Calcium 9.1 mg/dL Normal 8.5-10.1 Type And Screen 04/27/2019 [facility] Patient Blood Type B NEG Normal (315)- - Antibody Screen Negative Normal Negative Urine Culture 04/27/2019 [facility] Urine Culture URETHRAL GAIL (315)- - Quantity 10,000 - 50,000 <SEE NOTE> 8 Iron Panel 04/12/2019 [facility], Total 37 g/dL Low 50-170 9 Transferrin 234.0 mg/dL 203.0-362.0 Tibc (calc) 328 g/dL 261-478 % Iron Saturation 11.3 % Low 13.0-45.0 Laboratory test 02/27/2019 [facility]at Culture Microbiology res 10 finding <SEE NOTE> Iron Panel 01/15/2019 [facility], Total 38 g/dL Low 50-170 Transferrin 248.0 mg/dL 203.0-362.0 Tibc (calc) 347 g/dL 261-478 % Iron Saturation 10.9 % Low 13.0-45.0 Laboratory test 12/26/2018 [facility] Urine HCG NEGATIVE Negative 11, 12 finding (315)- - (Qualitative) 1 EXCESSIVE MENSTRUATION;ENDOMETRIOSIS [id number] 2 FIRST MORNING SPECIMENS GENERALLY CONTAIN THE HIGHEST CONCENTRATION OF HCG AND ARE RECOMMENDED FOR EARLY DETECTION OF . Method: Quidel QuickVue One-Step Immunoassay 3 8:00 SD 05/01/19 [id number] 4 URINE, CLEAN CATCH 5 CULTURE TO FOLLOW 6 URINE, CLEAN CATCH 7 Note: Persistent reduction for 3 months or more in an eGFR <60 mL/min/1.73 m2 defines CKD. Patients with eGFR values >/=60 mL/min/1.73 m2 may also have CKD if evidence of persistent proteinuria is present. The original MDRD equation for estimated GFR is not valid for patients less than 18 years of age. Additional information may be found at www.kdoqi.org. 8 10,000 - 50,000 CFU/mL 9 1 SST Specimen received unspun 10 Microbiology results RESULT Normal throat gail.No beta hemolytic streptococci isolated. 11 CONSULT 12/22/18 10;30 12 FIRST MORNING SPECIMENS GENERALLY CONTAIN THE HIGHEST CONCENTRATION OF HCG AND ARE RECOMMENDED FOR EARLY DETECTION OF . Method: Quidel QuickVue One-Step Immunoassay Procedures Date Code Description Status 11/01/2018 [id number] Mammogram Completed 02/24/2018 [id number] Mammogram Completed 09/19/2017 [id number] Mammogram Completed 03/04/2017 [id number] Mammogram Completed 09/02/2016 [id number] Mammogram Completed Medical Devices Description No Information Available Encounters Type Date Location Provider Dx Diagnosis Office Visit 06/05/2019 Margie Epperson NP E66.01 Morbid (severe) 2:15p obesity due to excess calories R60.9 Edema, unspecified A41.89 Other specified sepsis Z68.41 Body mass index (BMI) 40.0-44.9, adult Office Visit 05/24/2019 10:00a Margie Epperson NP E66.01 Morbid ( severe) obesity due to excess calories J00 Acute nasopharyngitis [common cold] Z68.41 Body mass index (BMI) 40.0-44.9, adult Office Visit 04/12/2019 10:15a Margie Epperson NP E66.01 Morbid ( severe) obesity due to excess calories D50.9 Iron deficiency anemia, unspecified Z13.31 Encounter for screening for depression Z68.41 Body mass index (BMI) 40.0-44.9, adult Office Visit 02/27/2019 11:45a Margie Epperson NP E66.01 Morbid ( severe) obesity due to excess calories J02.9 Acute pharyngitis, unspecified Z68.43 Body mass index (BMI) 50.0-59.9, adult Office Visit 01/15/2019 2:00p Margie Epperson NP E66.01 Morbid ( severe) obesity due to excess calories S65.202A Unsp injury of superficial palmar arch of LEFT hand, init Z68.43 Body mass index (BMI) 50.0-59.9, adult Assessments Date Code Description Provider 06/07/2019 E66.01 Morbid (severe) obesity due to excess Margie Reed NP calories 06/07/2019 R60.9 Edema, unspecified Margie Reed, [employer]ADES WORKER 06/07/2019 Z68.41 Body mass index (BMI) 40.0-44.9, adult Margie Reed NP 06/05/2019 E66.01 Morbid (severe) obesity due to excess Margie Reed, [employer]ADES WORKER calories 06/05/2019 R60.9 Edema, unspecified 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 Reed, GRAPHIC [employer] TRADES WORKER 06/05/2019 A41.89 Other specified sepsis Margie Reed NP 06/05/2019 Z68.41 Body mass index (BMI) 40.0-44.9, adult Margie Reed NP 05/24/2019 E66.01 Morbid (severe) obesity due to excess Margie Reed NP calories 05/24/2019 J00 Acute nasopharyngitis [common cold] Margie Reed, LEE 05/24/2019 Z68.41 Body mass index (BMI) 40.0-44.9, adult Margie Reed, LEE 04/12/2019 E66.01 Morbid (severe) obesity due to excess Margie Reed NP calories 04/12/2019 D50.9 Iron deficiency anemia, unspecified Margie Reed NP 04/12/2019 Z13.31 Encounter for screening for depression Margie Reed NP 04/12/2019 Z68.41 Body mass index (BMI) 40.0-44.9, adult Margie Reed, LEE 04/12/2019 D50.9 Iron deficiency anemia, unspecified [facility] 02/27/2019 E66.01 Morbid (severe) obesity due to excess Margie Reed NP calories 02/27/2019 J02.9 Acute pharyngitis, unspecified Margie Reed NP 02/27/2019 Z68.43 Body mass index (BMI) 50.0-59.9, adult Margie Reed NP 02/27/2019 J02.9 Acute pharyngitis, unspecified [facility] 01/15/2019 E61.1 Iron deficiency [facility] 01/15/2019 E66.01 Morbid (severe) obesity due to excess Margie Reed NP calories 01/15/2019 R53.83 Other fatigue [facility] 01/15/2019 S65.202A Unspecified injury of superficial palmar Margie Reed NP arch of LEFT hand, initial encounter 01/15/2019 Z68.43 Body mass index (BMI) 50.0-59.9, adult Margie Reed NP Plan of Treatment Future Appointment(s):06/11/2019 10:30 am - Margie Reed NP at [place]2019 - Margei Reed NPE66.01 Morbid (severe) obesity due to excess yaafgdqqU93.9 Edema, unspecifiedComments:continue current regimenFollow up: .41 Body mass index (BMI) 40.0-44.9, adult Functional Status Description No Information Available Mental Status Description No Information Available Referrals Refer to Dr Reason for Referral Status Appt Date Zoe Pettit MD faxed referral and info to Dr Pettit's Scheduled 2019 office, waiting to hear back with appt info. 04/13/19 Hematology/Oncology [address] [place] [address] [phone] Ole Mckinney MD left hand injury limited ROM sutures present Closed 02/09 faxed referral and info to [facility], waiting to hear back with appt info. 01/15/19 [facility] Room 115 [address] [facility] [place] [address] [phone]
--- OUTSIDE RECORDS SUMMARY | 2019-07-15 07:38 | XMS REPORT ---
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 Problem Leiomyoma of D25.9 Active 57344765 uterus, unspecified Problem Family history of Z80.3 Active 103509164 malignant neoplasm of breast Problem Fibromyalgia M79.7 Active 759221928 Problem Unspecified lump in N63.21 Active [id number] the left breast, upper outer quadrant Problem 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 91338577 chronicus Problem Dysuria R30.0 Active 64849441 Problem Noninflammatory N90.9 Active 433517993 disorder of vulva and perineum, unspecified Problem Acute vaginitis N76.0 Active 60811399 Problem Other abnormal and R92.8 Active 242389805 inconclusive findings on diagnostic imaging of breast Problem Disorder of the L98.9 Active 60222509 skin and subcutaneous tissue, unspecified Problem Endometriosis of N80.0 Active 04935583 uterus Problem Disorder of breast, N64.9 Active 38334522 unspecified Problem Secondary N94.5 Active 82515534 dysmenorrhea ALLERGIES Substance Reaction Event Type Date Status penicillin hives Drug Allergy May, Active ENCOUNTERS Encounter Location Date Diagnosis [facility] [address] Feb, [place], [place] [id number] [facility] [address] Aug, [place] [id number] [facility] [address] May, Excessive and frequent [facility] menstruation with regular [place], [place] [id number] cycle N92.0 ; Lichen simplex chronicus L28.0 ; Secondary dysmenorrhea N94.5 ; Leiomyoma of uterus, unspecified D25.9 ; Family history of malignant neoplasm of breast Z80.3 and Endometriosis of uterus N80.0 [facility] [address] May, [place], [place] [id number] [facility] May, [place] [place] [id number] [facility] May, [place] [id number] [facility] [address] May, [place] [id number] [facility] [address] May, [place] [id number] [facility] [address] May, [place] [id number] [facility] [address] May, Acute vaginitis N76.0 [place] [id number] [facility] [address] May, Dysuria R30.0 and Lichen [facility] simplex chronicus L28.0 [place], [place] [id number] [facility] [address] May, [place], [place] [id number] [facility] [address] May, [place] [id number] [facility] Apr, Excessive and frequent [facility] menstruation with regular [place], [place] [address] cycle N92.0 ; Secondary dysmenorrhea N94.5 ; Leiomyoma of uterus, unspecified D25.9 ; Family history of malignant neoplasm of breast Z80.3 and Endometriosis of uterus N80.0 [facility] [address] Apr, [place] [id number] [facility] [address] Apr, Excessive and frequent [facility] menstruation with regular [place], [place] [id number] cycle N92.[address] [place] [address] Apr, Excessive and frequent [facility] [place] [place] [id number] menstruation with regular cycle N92.0 ; Secondary dysmenorrhea N94.5 and Leiomyoma of uterus, unspecified D25.9 [facility] [address] Apr, [place] [id number] [facility] Mar, Excessive and frequent [facility] menstruation with regular [place], [place] [id number] cycle N92.0 ; Polycystic ovarian syndrome E28.2 ; Leiomyoma of uterus, unspecified D25.9 ; Family history of malignant neoplasm of breast Z80.3 ; Lichen simplex chronicus L28.0 ; Endometriosis of uterus N80.0 and Acute vaginitis N76.0 [facility] Mar, [place] [id number] [facility] [address] Mar, Acute [facility]initis N76.0 [facility] R[facility].0 [place], [place] [id number] [facility] [address] Feb, Encounter for gynecological [facility] examination (general) [place], [place] [id number] (routine) with abnormal findings Z01.411 ; Excessive and frequent menstruation with regular cycle N92.0 ; Lichen simplex chronicus L28.0 ; Polycystic ovarian syndrome E28.2 ; Leiomyoma of uterus, unspecified D25.9 ; Family history of malignant neoplasm of breast Z80.3 and Endometriosis of uterus N80.0 [facility] [address] Feb, [facility]oma of uterus, [facility] unspecified D25.9 [place], [place] [id number] [facility] [address] Feb, Disorder of breast, OBGYN [facility] unspecified N64.9 [place], [place] [id number] [facility] [address] Feb, [place] [id number] [place] [facility] [address] [place] [address] Jan, Lichen simplex chronicus [address] [place], L28.0 and Disorder [place] [id number] breast, unspecified N64.9 [facility] [address] Jan, OBG[place] [id number] [facility] [address] Dec, [place] [id number] [facility] 103 Dec, [facility] with regular [place], [place] [id number] cycle N92.0 ; Polycystic ovarian syndrome E28.2 ; Leiomyoma of uterus, unspecified D25.9 ; Family history of malignant neoplasm of breast Z80.3 ; Lichen simplex chronicus L28.0 and Endometriosis of uterus N80.0 [facility] [address] Dec, Excessive and frequent [facility] [place] [id number] menstruation with regular cycle N92.0 ; Leiomyoma of uterus, unspecified D25.9 and Polycystic ovarian syndrome E28.2 [facility] [address] Nov, [place] [id number] [facility] [address] Nov, [facility]ation with regular [place] [id number] cycle N92.0 [facility] 103 Nov, Excessive and frequent OBGYN [facility] menstruation with regular [place], [place] [id number] cycle N92.0 ; Polycystic ovarian syndrome E28.2 and Leiomyoma of uterus, unspecified D25.9 [facility] [address] Nov, OBG[place] [id number] [facility] Oct, OBG[place] [id number] [facility] 103 Oct, Excessive and frequent OBGYN [facility] menstruation with regular [place], [place] [id number] cycle N92.0 ; Polycystic ovarian syndrome E28.2 ; Leiomyoma of uterus, unspecified D25.9 ; Family history of malignant neoplasm of breast Z80.3 and Lichen simplex chronicus L28.0 [facility] [address] Oct, [facility] the [facility], [place], [place] [id number] unspecified L98.9 [facility] [address] September, [place] [id number] [facility] [address] September, OBG[place] [id number] [facility] [address] September, Excessive and frequent OBGYN [facility] menstruation with regular [place], [place] [address] cycle N92.0 [facility] [address] Aug, [facility] history [facility] neoplasm of breast Z80.3 [place], [place] [id number] and Unspecified lump in the left breast, upper outer quadrant N63.21 [facility] [address] Feb, OBG[place] [id number] [facility] [address] Feb, [facility]hen simplex [facility]us [facility] L[facility].0 ; Family history of [place], [place] [id number] malignant neoplasm of breast Z80.3 and Unspecified lump in the left breast, upper outer quadrant N63.21 [facility] 103 Feb, Noninflammatory disorder of [facility] vulva and perineum, [place], [place] [id number] unspecified N90.9 [facility] Feb, Other abnormal and [facility] inconclusive findings on [place], [place] [id number] diagnostic imaging of breast R92.8 [facility] [address] Feb, [place], [place] [id number] [facility] 103 Feb, Noninflammatory disorder of [facility] vulva and perineum, [place], [place] [id number] unspecified N90.9 [facility] [address] Jan, [place], [place] [id number] [facility] 103 Jan, Encounter for gynecological [facility] examination (general) [place], [place] [id number] (routine) with abnormal findings Z01.411 ; Other [...] disorder of vulva and perineum, unspecified N90.9 [facility] 103 Jan, Leiomyoma of uterus, [facility] unspecified D25.9 and [place], [place] [id number] Polycystic ovarian syndrome E28.2 [facility] 103 Aug, Other abnormal and [facility] inconclusive findings on [place], [place] [id number] diagnostic imaging of breast R92.8 [facility] 103 Aug, Leiomyoma of uterus, [facility] unspecified D25.9 ; Abscess [place], [place] [id number] of vulva N76.4 and Family history of malignant neoplasm of breast Z80.3 [facility] [address] Aug, [facility]stic [facility] E28.2 and Leiomyoma of [place], [place] [id number] uterus, unspecified D25.9 [facility] [address] Jul, Abscess of vulva N76.4 [place] [id number] [facility] [address] Jul, Abscess of vulva N76.4 [place] [id number] [facility] [address] Jul, [place] [id number] [facility] [address] Jul, [place] [id number] [facility] 103 Jun, Family history of malignant [facility] neoplasm of breast Z80.3 [place], [place] [id number] and Other abnormal and inconclusive findings on diagnostic imaging of breast R92.8 [facility] [address] Jun, [place] [id number] [facility] [address] Mar, Polycystic ovarian syndrome [facility] E28.2 ; Family history of [place], [place] [id number] malignant neoplasm of breast Z80.3 and Family history of malignant neoplasm of digestive organs Z80.0 [facility] 103 Mar, [facility]stic [facility] E28.2 [place], [place] [id number] [facility] [address] Feb, [place] [id number] [facility] [address] Jan, [place] [id number] [facility] [address] 21 Jan, 2017 [facility] [place], [place] [id number] (routine) with abnormal findings Z01.411 ; Polycystic ovarian syndrome E28.2 ; Female infertility, unspecified N97.9 ; Candidiasis of skin and nail B37.2 ; Family history of malignant neoplasm of breast Z80.3 and Body mass index (BMI) 40.0-44.9, adult Z68.41 [facility] [address] Dec, [place], [place] [id number] [facility] [address] Nov, [place], [place] [id number] [facility] [address] Oct, [place], [place] [id number] [facility] 103 Aug, [facility] [place], [place] [id number] (routine) with abnormal findings Z01.411 ; Polycystic ovarian syndrome E28.2 ; Nonscarring hair loss, unspecified L65.9 and Body mass index (BMI) 34.0-34.9, adult Z68.34 [facility] [address] Jul, [place], [place] [id number] [facility] 103 Jun, Polycystic ovarian syndrome [facility] E28.2 [place] [id number] [facility] [address] Mar, [place], [place] [id number] [facility] 103 Feb, Other specified conditions [facility] associated with female [place], [place] [id number] genital organs and menstrual cycle N94.89 ; Excessive and frequent menstruation with regular cycle N92.0 ; 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 ; Polycystic ovarian syndrome E28.2 and Body mass index (BMI) 39.0-39.9, adult Z68.39 [facility] 103 Nov, PELVIC PAIN 625.9 ; OBGYN [facility] Menometrorrhagia 626.2 and [place], [place] [id number] Hyperinsulinism 251.1 [facility] [address] Nov, OBG[place] [id number] [facility] 103 Oct, Menometrorrhagia 626.2 OBG[place], [place] [id number] [facility] 103 Oct, Menometrorrhagia 626.2 [place]BG[place], [place] [id number] [facility] 103 Oct, PELVIC PAIN 625.9 and OBGYN [facility] Menometrorrhagia 626.2 [place], [place] [id number] [facility] 103 Oct, OBG[place], [place] [id number] [facility] 103 Oct, Menometrorrhagia 626.2 OBG[place], [place] [id number] [facility] 103 Oct, PELVIC PAIN 625.9 and OBGYN [facility] Menometrorrhagia 626.2 [place], [place] [id number] [facility] 103 Jun, OBG[place], [place] [id number] [facility] 103 Jun, OBGYN [place], [place] [id number] [facility] [address] Jun, OBG[place], [place] [id number] [facility] 103 Jun, [place]BG[place], [place] [id number] [facility] 103 September, [place]BG[place] [id number] [facility] 103 29 Aug, 2013 FAMILY HX-BREAST MALIG OBGYN [facility] V16.3 [place], [place] [id number] [facility] 103 17 Aug, 2013 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 Schedule breast MRI. Pt schedule for [facility] in August Reason: VITAL SIGNS Height 69 in 2019-06-18 Weight 279 lbs 2019-06-18 BMI 41.20 kg/m2 2019-06-18 Blood pressure systolic 130 mm Hg 2019-06-18 Blood pressure diastolic 72 mm Hg 2019-06-18 MEDICATIONS Medication Instructions Dosage Frequency Start End Date Duration Status Date Magnesium 2 tabs 24h Active One Daily orally once a day 1 tab(s) 24h Active Multi-Essential Multiple Vitamins ibuprofen 800 orally q 8 hrs 1 tab(s) Apr, Active mg PRN 2018 ferrous sulfate orally once a day 5 mL 24h 30 day(s) Active 220 mg/5 mL Celexa 40mg Oral qd 1 tab 24h Active Motrin oral PRN 1 tab Active Vitamin B oral QD 1 tab 24h Active complex Probiotic Active Formula Vitamin D 5000 oral qd 1 tab 24h Active clobetasol applied topically 1 eduardo Active topical 0.05% to vulva once weekly PROCEDURES No Known procedures RESULTS No Results REASON FOR VISIT 1 month vag cuff fup, Breast MRI due due to high Tyrer Cuzick/FH breast cancer, not yet Insurance Providers [facility] Member Patient Patient Patient Patient Patient Subscriber Subscriber Subscriber Group Insurance Plan Plan Plan Plan ID Relationship Address Phone Name Date of ID Name Date of No Type Insurance Insurance Insurance Coverage to Subscriber Address Phone Name Dates [address] [id number] Blue [id number] [place] Cross/Blue [place] Cross/Blue rtrand Shield [id number] Shield [place] [address] [place] [id number] Blue [id number] Blue [place] 1 Cross/Blue [place] Cross/Blue r[place] Shield [id number] Shield MEDICAL (GENERAL) HISTORY Type Description Date [...]
--- OUTSIDE RECORDS SUMMARY | 2019-07-15 07:38 | XMS REPORT | Continuity of Care Document ---
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 Problems Description No Information Available Social History Type Date Description Comments Sex Unknown ETOH Use Denies alcohol use Tobacco Use Start: Unknown Patient has never smoked Recreational Drug Use Denies Drug Use Enjoy Exercising Enjoys Exercising Allergies, Adverse Reactions, Alerts Active Allergies Reaction Severity Comments Date Penicillin 08/30/2016 Lidocaine ineffective 01/15/2019 Medications Active Medications SIG Qnty Indications Ordering Date Provider Ondansetron HCL 1 by mouth q12 30tabs Derek, 06/05/2019 8mg hours as needed LEE Hanson Tablets Ferrous Sulfate take 17ml daily 1530units Derek, 02/27/2019 220(44Fe) LEE Hanson mg/5ML Elixir Alprazolam 1/2 by mouth 30tabs Derek, 01/15/2019 0.25mg Tablets three times a LEE Hanson day as needed Cpap needs cpap 1units G47.33 Derek, 02/20/2018 Device supplies LEE Hanson Hydrocortisone apply to 453.600gm A69.20 Derek, 01/12/2018 2.5% affected areas LEE Hanson Ointment twice a day Citalopram 1 by mouth 90tabs Job Reed, 11/04/2016 Hydrobromide every day 40mg Tablets Physical Therapy evaluate and 12units M54.5 [facility], 09/13/2016 [facility] treat low back LEE Hanson pain Turmeric 2 by mouth at 60tabs [facility], 08/30/2016 500mg Tablets bedtime LEE Hanson One Daily For Women [facility], 08/30/2016 LEE Hanson Tablets Biotin 5000 1 po qd 60caps [facility], 08/30/2016 5mg Capsules LEE Hanson Vitamin D3 bid [facility], 08/30/2016 5000Unit LEE Hanson Capsules Magnesium bid 60caps [facility], 08/30/2016 500mg Capsules LEE Hanson Vitamin B-12 1 by mouth [facility], 08/30/2016 1000mcg every day LEE Hanson Tablets Ibuprofen 1 by mouth 90tabs [facility], 08/30/2016 800mg Tablets three times a LEE Hanson day as needed History Medications Furosemide 1 by mouth every 14tabs R60.9 [facility], 06/05/2019 - 20mg Tablets day LEE Hanson 06/11/2019 Potassium Gluconate take 5 every day 20tabs R60.9 [facility], 06/05/2019 - LEE Hanson 06/11/2019 2Meq Tablets Benzonatate take one capsule 30caps [facility], 05/24/2019 - 200mg by mouth three LEE Hanson 06/05/2019 Capsules times every day as needed for cough Guaifenesin-Codeine 5-10 milliliters 120ml [facility], 05/24/2019 - every 4 hours as LEE Hanson 06/05/2019 100-10mg/5ML Solution needed cough Metronidazole 1 applicator full [facility], 04/12/2019 - 0.75% Gel at bedtime x 5 LEE Hanson 04/12/2019 days Clarithromycin 1 twice a day x 2 28tabs J02.9 [facility], 02/27/2019 - 500mg weeks LEE Hanson 04/12/2019 [...] CPT Code Status Date Vaccine Lot # [id number] Given 01/12/2019 Tdap (Adacel) Ages 7 And Above Only 80057 Given 02/20/2018 Influenza Vac, Quadrivalent, Split, 0.5mL Dosage, [id number] Im Use [id number] Refused 04/12/2019 Afluria Or Fluvirin Flu Vac Intramuscular [id number] Refused 09/13/2016 Afluria Or Fluvirin Flu Vac Intramuscular Vital Signs Date Vital Result Comment 06/11/2019 10:26am Body Temperature 97.6 F Weight 276.31 lb Heart Rate 83 /min BP Systolic 140 mmHg BP Diastolic 70 mmHg Respiratory Rate 14 /min Height 69 inches 5'9" O2 % BldC Oximetry 97 % BMI (Body Mass Index) 40.8 kg/m2 06/07/2019 11:45am Body Temperature 97.2 F Weight 281.00 lb Heart Rate 91 /min BP Systolic 138 mmHg BP Diastolic 80 mmHg Respiratory Rate 16 /min Height 69 inches 5'9" O2 % BldC Oximetry 96 % BMI (Body Mass Index) 41.5 kg/m2 Results Test Acquired Date Facility Test Result H/L Range Note Laboratory test 05/01/2019 [facility] Urine HCG NEGATIVE Negative 1, 2 finding (315)- - (Qualitati ve) Urinalysis With 04/27/2019 [facility] Urine Light-Yellow Yellow 3 Microscopic (315)- - Color Urine Clarity Slightly Cloudy Clear Urine Glucose - Dipstick NEGATIVE mg/dL Negative Urine Bilirubin - Dipstick NEGATIVE Negative Urine Ketone NEGATIVE mg/dL Negative Urine Specific [place] 1.023 Normal 1.010-1.030 Urine Blood LARGE Abnormal [...] CAT <SEE NOTE> 4 Culture If 04/27/2019 [facility] Culture If CULTURE TO 5 Indicated Comment (315)- - Indicated Comment FOLLO <SEE NOTE> Source: URINE, CLEAN CAT <SEE NOTE> 6 CBC 04/27/2019 [facility] White Blood Count 5.6 K/uL [...] 10/ 100 WBC Basic Metabolic Panel 04/27/2019 [facility] Glucose 124 mg/dL High 74-106 (315)- - [...] mg/dL Normal 8.5-10.1 Type And Screen 04/27/2019 [facility] Patient Blood Type B NEG Normal (315)- - Antibody Screen Negative Normal Negative Urine Culture 04/27/2019 [facility] Urine Culture URETHRAL GAIL (315)- - Quantity [...] 10.9 % Low 13.0-45.0 Laboratory test 12/26/2018 [facility] Urine HCG NEGATIVE Negative 11, 12 finding (315)- - (Qualitative) 1 EXCESSIVE MENSTRUATION;ENDOMETRIOSIS [id number] 2 FIRST MORNING SPECIMENS GENERALLY CONTAIN THE HIGHEST CONCENTRATION OF HCG AND ARE RECOMMENDED FOR EARLY DETECTION OF . Method: Quidel QuickVue One-Step Immunoassay 3 8:00 [facility] [place] 05/01/19 [id number] 4 URINE, CLEAN CATCH 5 CULTURE TO [...] Immunoassay Procedures Date Code Description Status 11/01/2018 [id number] Mammogram Completed 02/24/2018 [id number] Mammogram Completed 09/19/2017 [id number] Mammogram Completed 03/04/2017 [id number] Mammogram Completed 09/02/2016 [id number] Mammogram Completed Medical Devices Description No Information [...] 50.0-59.9, adult Assessments Date Code Description Provider 06/11/2019 E66.01 Morbid (severe) obesity due to excess Margie Reed NP calories 06/11/2019 R60.9 Edema, unspecified Margie Reed NP 06/11/2019 Z68.41 Body mass index (BMI) 40.0-44.9, adult Margie Reed NP 06/07/2019 E66.01 Morbid (severe) obesity due to excess Margie Reed NP calories 06/07/2019 R60.9 Edema, unspecified Margie Reed NP 06/07/2019 Z68.41 Body mass index (BMI) 40.0-44.9, adult Margie Reed NP 06/05/2019 E66.01 Morbid (severe) obesity due to excess Margie Reed, [employer] calories 06/05/2019 R60.9 Edema, unspecified Margie Reed, [employer] 06/05/2019 A41.89 Other specified sepsis Margie Reed, [employer] 06/05/2019 Z68.41 Body mass index (BMI) 40.0-44.9, adult Margie Reed, [employer] 05/24/2019 E66.01 Morbid (severe) obesity due to excess Margie Reed, [employer] calories 05/24/2019 J00 Acute nasopharyngitis [common cold] Margie Reed, [employer] 05/24/2019 Z68.41 Body mass index (BMI) 40.0-44.9, adult Margie Reed, [employer] 04/12/2019 E66.01 Morbid (severe) obesity due to excess Margie Reed, [employer] calories 04/12/2019 D50.9 Iron deficiency anemia, unspecified Margie Reed, [employer] 04/12/2019 Z13.31 Encounter for screening for depression Margie Reed, [employer] 04/12/2019 Z68.41 Body mass index (BMI) 40.0-44.9, adult Margie Reed, [employer] 04/12/2019 D50.9 Iron deficiency anemia, unspecified [facility] 02/27/2019 E66.01 Morbid (severe) obesity due to excess Margie Reed, [employer] calories 02/27/2019 J02.9 Acute pharyngitis, unspecified Margie Reed, [employer] 02/27/2019 Z68.43 Body mass index (BMI) 50.0-59.9, adult Margie Reed, [employer] 02/27/2019 J02.9 Acute pharyngitis, unspecified [facility] 01/15/2019 E61.1 Iron deficiency [facility] 01/15/2019 E66.01 Morbid (severe) obesity due to excess Margie Reed, [employer] calories 01/15/2019 R53.83 Other fatigue [facility] 01/15/2019 S65.202A Unspecified injury of superficial palmar Margie Reed, LEE arch of LEFT hand, initial encounter 01/15/2019 Z68.43 Body mass index (BMI) 50.0-59.9, adult Margie Reed NP Plan of Treatment 06/11/2019 - Margie Reed NPE66.01 Morbid (severe) obesity due to excess [id number] Edema, unspecifiedComments:hold for nowZ68.41 Body mass index (BMI ) 40.0-44.9, adult Functional Status Description No Information Available Mental Status Description No Information Available Referrals Refer to Reason for Referral Status Appt Date Zoe Pettit MD faxed referral and info to Dr Pettit's Scheduled 2019 office, waiting to hear back with appt info. 04/13/19 Hematology/Oncology [address] [place] [address] [phone] Ole Mckinney MD left hand injury limited ROM sutures present Closed 02/09 faxed referral and info to [facility], waiting to hear back with appt info. 01/15/19 [facility] Room 115 [address] [facility] [place] [address] [phone]
--- OUTSIDE RECORDS SUMMARY | 2019-07-15 07:38 | XMS REPORT ---
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 Problem Leiomyoma of D25.9 Active 95722323 uterus, unspecified Problem Family history of Z80.3 Active 294025918 malignant neoplasm of breast Problem Fibromyalgia M79.7 Active 565749173 Problem Unspecified lump in N63.21 Active 115215822499196 the left breast, upper outer quadrant Problem 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 89196887 chronicus Problem Dysuria R30.0 Active 99761115 Problem Noninflammatory N90.9 Active 999857762 disorder of vulva and perineum, unspecified Problem Acute vaginitis N76.0 Active 40211029 Problem Other abnormal and R92.8 Active 695152338 inconclusive findings on diagnostic imaging of breast Problem Disorder of the L98.9 Active 80263525 skin and subcutaneous tissue, unspecified Problem Endometriosis of N80.0 Active 92644257 uterus Problem Disorder of breast, N64.9 Active 63155624 unspecified Problem Secondary N94.5 Active 49065539 dysmenorrhea ALLERGIES No Information ENCOUNTERS Encounter Location Date Diagnosis [facility] [address] Feb, [place], [place] [id number] [facility] [address] Aug, [place], [place] [id number] [place] [facility] [address] May, Excessive and frequent [facility] menstruation with regular [place], [place] [address] cycle N92.0 ; Lichen simplex chronicus L28.0 ; Secondary dysmenorrhea N94.5 ; Leiomyoma of uterus, unspecified D25.9 ; Family history of malignant neoplasm of breast Z80.3 and Endometriosis of uterus N80.0 [facility] [address] May, [place], [place] [id number] [place] [facility] [address] May, [place] [id number] [facility] [address] May, [place] [id number] [place] [facility] [address] May, [place] [id number] [place] [facility] [address] May, [place] [id number] [place] [facility] [address] May, [place] [id number] [place] [facility] [address] May, Acute vaginitis N76.0 [place] [id number] [place] [facility] [address] May, Dysuria R30.0 and Lichen [facility] simplex chronicus L28.0 [place] [id number] [place] [facility] [address] May, [place], [place] [id number] [place] [facility] [address] May, [place] [id number] [facility] Apr, Excessive and frequent [facility] menstruation with regular [place] [id number] cycle N92.0 ; Secondary dysmenorrhea N94.5 ; Leiomyoma of uterus, unspecified D25.9 ; Family history of malignant neoplasm of breast Z80.3 and Endometriosis of uterus N80.0 [facility] [address] Apr, [place] [id number] [facility] [address] Apr, Excessive and frequent [facility] menstruation with regular [place], [place] [id number] cycle N92.0 [place] [address] Apr, Excessive and frequent [facility] [place] [place] [id number] menstruation with regular cycle N92.0 ; Secondary dysmenorrhea N94.5 and Leiomyoma of uterus, unspecified D25.9 [facility] [address] Apr, O[place] [id number] [facility] [address] Mar, Excessive and frequent [facility] menstruation with regular [place], [place] [id number] cycle N92.0 ; Polycystic ovarian syndrome E28.2 ; Leiomyoma of uterus, unspecified D25.9 ; Family history of malignant neoplasm of breast Z80.3 ; Lichen simplex chronicus L28.0 ; Endometriosis of uterus N80.0 and Acute vaginitis N76.0 [facility] [address] Mar, O[place] [id number] [facility] Mar, Acute vaginitis N76.0 and [facility] Dysuria R30.0 [place] [id number] [place] [facility] [address] Feb, Encounter for [facility]ological [facility] examination (general) [place], [place] [id number] (routine) with abnormal findings Z01.411 ; Excessive and frequent menstruation with regular cycle N92.0 ; Lichen simplex chronicus L28.0 ; Polycystic ovarian syndrome E28.2 ; Leiomyoma of uterus, unspecified D25.9 ; Family history of malignant neoplasm of breast Z80.3 and Endometriosis of uterus N80.0 [place] [facility] [address] Feb, Leiomyoma of uterus, [facility] unspecified D25.9 [place], [place] [id number] [place] [facility] [address] Feb, [facility] of breast, [facility] unspecified N64.9 [place] [id number] [place] [facility] [address] Feb, [place] [id number] [place] [facility] [address] [place] [address] Jan, Lichen simplex chronicus [address] [place], L28.0 [place] [id number] breast, unspecified N64.9 [place] [facility] [address] Jan, [place] [id number] [place] [facility] [address] Dec, [place] [id number] [place] [facility] [address] Dec, Excessive and frequent [facility] menstruation with regular [place], [place] [id number] cycle N92.0 ; Polycystic ovarian syndrome E28.2 ; Leiomyoma of uterus, unspecified D25.9 ; Family history of malignant neoplasm of breast Z80.3 ; Lichen simplex chronicus L28.0 and Endometriosis of uterus N80.0 [facility] [address] Dec, Excessive and frequent [facility] [place] [place] [id number] menstruation with regular cycle N92.0 ; Leiomyoma of uterus, unspecified D25.9 and Polycystic ovarian syndrome E28.2 [place] [facility] [address] Nov, [place] [id number] [place] [facility] [address] Nov, Excessive and frequent [facility] menstruation with regular [place] [id number] cycle N92.0 [place] [facility] [address] Nov, [facility]cessive and frequent [facility]ation with regular [place] [id number] cycle N92.0 ; Polycystic ovarian syndrome E28.2 and Leiomyoma of uterus, unspecified D25.9 [place] [facility] [address] Nov, [place] [id number] [place] [facility] [address] Oct, [place] [id number] [place] [facility] 103 Oct, Excessive and frequent O[facility] menstruation with regular [place], [place] [id number] cycle N92.0 ; Polycystic ovarian syndrome E28.2 ; Leiomyoma of uterus, unspecified D25.9 ; Family history of malignant neoplasm of breast Z80.3 and Lichen simplex chronicus L28.0 [place] [facility] [address] Oct, Disorder of the skin and [facility] subcutaneous tissue, [place], [place] [id number] unspecified L98.9 [place] [facility] [address] September, [place], [place] [id number] [place] [facility] [address] September, [place] [id number] [place] [facility] [address] September, Excessive and frequent [facility] menstruation with regular [place], [place] [id number] cycle N92.0 [place] [facility] [address] Aug, Family history of malignant [facility] neoplasm of breast Z80.3 [place], [place] [id number] and Unspecified lump in the left breast, upper outer quadrant N63.21 [facility] [address] Feb, [place] [id number] [place] [facility] [address] Feb, Lichen simplex chronicus [facility] L28.0 ; Family history [place], [place] [id number] malignant neoplasm of breast Z80.3 and Unspecified lump in the left breast, upper outer quadrant N63.21 [facility] 103 Feb, Noninflammatory disorder of [facility] vulva and perineum, [place], [place] [id number] unspecified N90.9 [facility] Feb, Other abnormal and [facility] inconclusive findings on [place], [place] [id number] diagnostic imaging of breast R92.8 [facility] [address] Feb, [place] [id number] [facility] [address] Feb, Noninflammatory disorder of [facility] vulva and perineum, [place], [place] [id number] unspecified N90.9 [facility] [address] Jan, [place], [place] [id number] [facility] 103 Jan, Encounter for gynecological [facility] examination (general) [place], [place] [id number] (routine) with abnormal findings Z01.411 ; Other [...] disorder of vulva and perineum, unspecified N90.9 [facility] 103 Jan, Leiomyoma of uterus, [facility] unspecified D25.9 and [place], [place] [id number] Polycystic ovarian syndrome E28.2 [facility] 103 Aug, Other abnormal and [facility] inconclusive findings on [place], [place] [id number] diagnostic imaging of breast R92.8 [facility] 103 Aug, Leiomyoma of uterus, [facility] unspecified D25.9 ; Abscess [place], [place] [id number] of vulva N76.4 and Family history of malignant neoplasm of breast Z80.3 [place] [facility] [address] Aug, Polycystic ovarian syndrome [facility] E28.2 and Leiomyoma of [place], [place] [id number] uterus, unspecified D25.9 [place] [facility] [address] Jul, Abscess of vulva N76.4 [place] [id number] [place] [facility] [address] Jul, Abscess of vulva N76.4 [place] [id number] [place] [facility] [address] Jul, [place] [id number] [place] [facility] [address] Jul, [place] [id number] [place] [facility] [address] Jun, Family history of malignant [facility] neoplasm of breast Z80.3 [place], [place] [id number] and Other abnormal and inconclusive findings on diagnostic imaging of breast R92.8 [place] [facility] [address] Jun, [place] [id number] [place] [facility] [address] Mar, Polycystic ovarian syndrome [facility] E28.2 ; Family history [place], [place] [id number] malignant neoplasm of breast Z80.3 and Family history of malignant neoplasm of digestive organs Z80.0 [place] [facility] [address] Mar, Polycystic ovarian syndrome [facility] E28.2 [place] [id number] [place] [facility] [address] Feb, [place] [id number] [place] [facility] [address] Jan, [place] [id number] [place] [facility] [address] 21 Jan, 2017 [facility] examination (general) [place], [place] [id number] (routine) with abnormal findings Z01.411 ; Polycystic ovarian syndrome E28.2 ; Female infertility, unspecified N97.9 ; Candidiasis of skin and nail B37.2 ; Family history of malignant neoplasm of breast Z80.3 and Body mass index (BMI) 40.0-44.9, adult Z68.41 [place] [facility] [address] Dec, [place] [id number] [place] [facility] [address] Nov, [place] [id number] [place] [facility] [address] Oct, [place] [id number] [place] [facility] 103 Aug, Encounter for [facility]ological [facility] examination (general) [place], [place] [id number] (routine) with abnormal findings Z01.411 ; Polycystic ovarian syndrome E28.2 ; Nonscarring hair loss, unspecified L65.9 and Body mass index (BMI) 34.0-34.9, adult Z68.34 [place] [facility] [address] Jul, [place] [id number] [place] [facility] [address] Jun, Polycystic ovarian syndrome [facility] E28.2 [place] [id number] [place] [facility] [address] Mar, [place] [id number] [place] [facility] 103 Feb, Other specified conditions [facility] associated with female [place], [place] [id number] genital organs and menstrual cycle N94.89 ; Excessive and frequent menstruation with regular cycle N92.0 ; 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 ; Polycystic ovarian syndrome E28.2 and Body mass index (BMI) 39.0-39.9, adult Z68.39 [place] [facility] [address] Nov, PELVIC PAIN 625.9 ; OBGYN [facility] Menometrorrhagia 626.2 and [place], [place] [id number] Hyperinsulinism 251.1 [place] [facility] [address] Nov, [place] [id number] [facility] [address] Oct, Menometrorrhagia 626.2 [place] [id number] [place] [facility] 103 Oct, Menometrorrhagia 626.2 [place], [place] [id number] [place] [facility] [address] Oct, PELVIC PAIN 625.9 and OBGYN [facility] Menometrorrhagia 626.2 [place], [place] [id number] [facility] [address] Oct, [place], [place] [id number] [place] [facility] 103 Oct, Menometrorrhagia 626.2 [place] [id number] [place] [facility] 103 Oct, PELVIC PAIN 625.9 and OBGYN [facility] Menometrorrhagia 626.2 [place], [place] [id number] [place] [facility] [address] Jun, [place], [place] [id number] [place] [facility] [address] Jun, [place], [place] [id number] [place] [facility] [address] Jun, [place] [id number] [facility] [address] Jun, [place] [id number] [facility] [address] September, [place] [id number] [place] [facility] [address] Aug, FAMILY HX-BREAST MALIG O[facility] V16.3 [place], [place] [id number] [place] [facility] [address] 17 Aug, 2013 [employer] EXAMINATION O[facility]YN [facility] V72.31 and Yeast infection [place], [place] [id number] 112.9 IMMUNIZATIONS No Known Immunizations SOCIAL HISTORY Never Assessed REASON FOR REFERRAL FUNCTIONAL STATUS PLAN OF CARE VITAL SIGNS MEDICATIONS Unknown Medications PROCEDURES No Known procedures RESULTS No Results REASON FOR VISIT MRI, BC/BS R Insurance Providers [facility] Member Patient Patient Patient Patient Patient Subscriber Subscriber Subscriber Group Insurance Plan Plan Plan Plan ID Relationship Address Phone Name Date of ID Name Date of No Type Insurance Insurance Insurance Coverage to Subscriber Address Phone Name Dates [employer] [address] [employer] self Pat [id number] [place] 1 Cross/[place] Cross/Blue rtrand Shield [id number] Shield [place] [address] [employer] Pat [id number] 89 Blue [place] Shield [id number] Shield MEDICAL (GENERAL) HISTORY Type Description Date [...]
--- OUTSIDE RECORDS SUMMARY | 2019-07-15 07:39 | XMS REPORT ---
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 Problem Leiomyoma of D25.9 Active 90655278 uterus, unspecified Problem Family history of Z80.3 Active 387459183 malignant neoplasm of breast Problem Fibromyalgia M79.7 Active 976605736 Problem Unspecified lump in N63.21 Active 383031549724884 the left breast, upper outer quadrant Problem 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 39915811 chronicus Problem Dysuria R30.0 Active 69053569 Problem Noninflammatory N90.9 Active 899468514 disorder of vulva and perineum, unspecified Problem Acute vaginitis N76.0 Active 79159227 Problem Other abnormal and R92.8 Active 641433659 inconclusive findings on diagnostic imaging of breast Problem Disorder of the L98.9 Active 22339294 skin and subcutaneous tissue, unspecified Problem Endometriosis of N80.0 Active 78311028 uterus Problem Disorder of breast, N64.9 Active 52960641 unspecified Problem Secondary N94.5 Active 39713025 dysmenorrhea ALLERGIES No Information ENCOUNTERS Encounter Location Date Diagnosis [facility] [address] Feb, [place], [place] [id number] [facility] [address] Aug, [place], [place] [id number] [facility] [address] May, [place], [place] [id number] [facility] May, [place] [id number] [facility] 103 May, [place] [id number] [facility] [address] May, [place] [id number] [facility] 103 May, [place] [id number] [facility] 103 May, [place] [id number] [facility] 103 May, Acute vaginitis N76.0 [place] [id number] [facility] 103 May, Dysuria R30.0 and Lichen [facility] simplex chronicus L28.0 [place] [id number] [facility] [address] May, [place] [id number] [facility] 103 May, [place], [place] [id number] [facility] 103 Apr, Excessive and frequent [facility] menstruation with regular [place], [place] [id number] cycle N92.0 ; Secondary dysmenorrhea N94.5 ; Leiomyoma of uterus, unspecified D25.9 ; Family history of malignant neoplasm of breast Z80.3 and Endometriosis of uterus N80.0 [facility] 103 Apr, [place] [id number] [facility] Apr, Excessive and frequent [facility] menstruation with regular [place], [place] [id number] cycle N92.0 [facility] [address] Apr, Excessive and frequent [facility] [place] [id number] menstruation with regular cycle N92.0 ; Secondary dysmenorrhea N94.5 and Leiomyoma of uterus, unspecified D25.9 [facility] Apr, [place] [id number] [facility] 103 Mar, Excessive and frequent [facility] menstruation with regular [place], [place] [id number] cycle N92.0 ; Polycystic ovarian syndrome E28.2 ; Leiomyoma of uterus, unspecified D25.9 ; Family history of malignant neoplasm of breast Z80.3 ; Lichen simplex chronicus L28.0 ; Endometriosis of uterus N80.0 and Acute vaginitis N76.0 [facility] [address] Mar, [place] [id number] [facility] Mar, Acute vaginitis N76.0 and [facility] Dysuria R30.0 [place] [id number] [facility] Feb, Encounter for gynecological [facility] examination (general) [place], [place] [id number] (routine) with abnormal findings Z01.411 ; Excessive and frequent menstruation with regular cycle N92.0 ; Lichen simplex chronicus L28.0 ; Polycystic ovarian syndrome E28.2 ; Leiomyoma of uterus, unspecified D25.9 ; Family history of malignant neoplasm of breast Z80.3 and Endometriosis of uterus N80.0 [facility] 103 Feb, Leiomyoma of uterus, [facility] unspecified D25.9 [place] [id number] [facility] Feb, Disorder of breast, OBG[facility] unspecified N64.9 [place] [id number] [facility] 103 Feb, O[place] [id number] [facility] [address] [facility] Jan, Lichen simplex chronicus [address] [place], L28.0 [place] Disorder [place] [id number] breast, unspecified N64.9 [facility] 103 Jan, [place] [id number] [facility] 103 Dec, [place] [id number] [facility] 103 Dec, [facility] with regular [place] [id number] cycle N92.0 ; Polycystic ovarian syndrome E28.2 ; Leiomyoma of uterus, unspecified D25.9 ; Family history of malignant neoplasm of breast Z80.3 ; Lichen simplex chronicus L28.0 and Endometriosis of uterus N80.0 [facility] [address] Dec, Excessive and frequent [facility] [place] [id number] menstruation with regular cycle N92.0 ; Leiomyoma of uterus, unspecified D25.9 and Polycystic ovarian syndrome E28.2 [facility] 103 Nov, [place] [id number] [facility] 103 Nov, Excessive and frequent [facility] menstruation with regular [place], [place] [id number] cycle N92.0 [facility] 103 Nov, [facility]cessive and [facility] menstruation with regular [place] [id number] cycle N92.0 ; Polycystic ovarian syndrome E28.2 and Leiomyoma of uterus, unspecified D25.9 [facility] 103 Nov, [place] [id number] [facility] 103 Oct, [place] [id number] [facility] 103 Oct, Excessive and frequent [facility] menstruation with regular [place], [place] [id number] cycle N92.0 ; Polycystic ovarian syndrome E28.2 ; Leiomyoma of uterus, unspecified D25.9 ; Family history of malignant neoplasm of breast Z80.3 and Lichen simplex chronicus L28.0 [facility] 103 Oct, Disorder of the skin and [facility] subcutaneous tissue, [place] [id number] unspecified L98.9 [facility] 103 September, [place] [id number] [facility] 103 September, [place] [id number] [facility] 103 September, Excessive and frequent [facility] menstruation with regular [place] [id number] cycle N92.0 [facility] 103 Aug, Family history of malignant [facility] neoplasm of breast Z80.3 [place] [id number] and Unspecified lump in the left breast, upper outer quadrant N63.21 [facility] 103 Feb, [place] [id number] [facility] 103 Feb, Lichen simplex chronicus [facility] L28.0 ; Family history of [place], [place] [id number] malignant neoplasm of breast Z80.3 and Unspecified lump in the left breast, upper outer quadrant N63.21 [facility] 103 Feb, Noninflammatory disorder of [facility] vulva and perineum, [place] [id number] unspecified N90.9 [facility] 103 Feb, Other abnormal and [facility] inconclusive findings on [place] [id number] diagnostic imaging of breast R92.8 [facility] 103 Feb, [place] [id number] [facility] 103 Feb, Noninflammatory disorder of [facility] vulva and perineum, [place] [id number] unspecified N90.9 [facility] 103 Jan, [place] [id number] [facility] 103 Jan, Encounter for gynecological [facility] examination (general) [place], [place] [id number] (routine) with abnormal findings Z01.411 ; Other [...] disorder of vulva and perineum, unspecified N90.9 [facility] 103 Jan, Leiomyoma of uterus, [facility] unspecified D25.9 and [place], [place] [id number] Polycystic ovarian syndrome E28.2 [facility] 103 Aug, Other abnormal and [facility] inconclusive findings on [place], [place] [id number] diagnostic imaging of breast R92.8 [facility] 103 Aug, Leiomyoma of uterus, [facility] unspecified D25.9 ; Abscess [place], [place] [id number] of vulva N76.4 and Family history of malignant neoplasm of breast Z80.3 [facility] 103 Aug, Polycystic ovarian syndrome [facility] E28.2 and Leiomyoma of [place] [id number] uterus, unspecified D25.9 [facility] 103 Jul, Abscess of vulva N76.4 [place] [id number] [facility] 22 Jul, 2017 Abscess of vulva N76.4 [place] [id number] [facility] 19 Jul, 2017 [place] [id number] [facility] Jul, [place] [id number] [facility] Jun, Family history of malignant [facility] neoplasm of breast Z80.3 [place] [id number] and Other abnormal and inconclusive findings on diagnostic imaging of breast R92.8 [facility] Jun, [place] [id number] [facility] 103 Mar, [facility] E28.2 ; Family history [place] [id number] malignant neoplasm of breast Z80.3 and Family history of malignant neoplasm of digestive organs Z80.0 [facility] 103 Mar, Polycystic ovarian syndrome [facility] E28.2 [place] [id number] [facility] 103 Feb, [place] [id number] [facility] 103 Jan, [place] [id number] [facility] Jan, [facility] [place], [place] [id number] (routine) with abnormal findings Z01.411 ; Polycystic ovarian syndrome E28.2 ; Female infertility, unspecified N97.9 ; Candidiasis of skin and nail B37.2 ; Family history of malignant neoplasm of breast Z80.3 and Body mass index (BMI) 40.0-44.9, adult Z68.41 [facility] 103 Dec, [place] [id number] [facility] 103 Nov, [place] [id number] [facility] Oct, [place] [id number] [facility] 103 Aug, Encounter for gynecological [facility] examination (general) [place], [place] [id number] (routine) with abnormal findings Z01.411 ; Polycystic ovarian syndrome E28.2 ; Nonscarring hair loss, unspecified L65.9 and Body mass index (BMI) 34.0-34.9, adult Z68.[address] [facility] Jul, [place] [id number] [facility] Jun, [facility] E28.2 [place] [id number] [facility] Mar, [place] [id number] [facility] 103 Feb, Other specified conditions [facility] associated with female [place], [place] [id number] genital organs and menstrual cycle N94.89 ; Excessive and frequent menstruation with regular cycle N92.0 ; 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 ; Polycystic ovarian syndrome E28.2 and Body mass index (BMI) 39.0-39.9, adult Z68.39 [facility] 103 Nov, PELVIC PAIN 625.9 ; [facility] Menometrorrhagia 626.2 and [place], [place] [id number] Hyperinsulinism 251.1 [facility] 103 Nov, [place] [id number] [facility] 103 Oct, Menometrorrhagia 626.2 [facility] [place] [id number] [facility] 103 Oct, Menometrorrhagia 626.2 [place] [id number] [facility] 103 Oct, PELVIC PAIN 625.9 and OBGYN [facility] Menometrorrhagia 626.2 [place], [place] [id number] [facility] 103 Oct, [place] [id number] [facility] 103 Oct, Menometrorrhagia 626.2 [place] [id number] [facility] 103 Oct, PELVIC PAIN 625.9 and OBGYN [facility] Menometrorrhagia 626.2 [place], [place] [id number] [facility] 103 Jun, [place] [id number] [facility] 103 Jun, [place] [id number] [facility] 103 Jun, [place] [id number] [facility] 103 Jun, [place] [id number] [facility] 103 September, [place] [id number] [facility] 103 Aug, FAMILY HX-BREAST MALIG O[facility] V16.3 [place] [id number] [facility] 103 Aug, 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[facility] V72.31 and Yeast infection [place], [place] [id number] 112.9 IMMUNIZATIONS No Known Immunizations SOCIAL HISTORY Never Assessed REASON FOR REFERRAL FUNCTIONAL STATUS PLAN OF CARE VITAL SIGNS MEDICATIONS Medication Instructions Dosage Frequency Start End Duration Status Date Date One Daily orally once a 1 tab(s) 24h Active Multi-Essential day Multiple Vitamins Vitamin D 5000 oral qd 1 tab 24h Active clobetasol topical applied 1 eduardo 30 days Active 0.05% topically 2 times a day x 3-6 weeks when symptomatic, then weekly ferrous sulfate orally once a 5 mL 24h 30 day(s) Active 220 mg/5 mL day Motrin oral PRN 1 tab Active Flagyl 500 mg orally BID 1 tab(s) 12h 15 Nov, 7 day(s) Active 2018 clarithromycin 500 orally every 12 1 tab(s) 12h 10 day(s) Active mg hours Celexa 40mg Oral qd 1 tab 24h Active Vitamin B complex oral QD 1 tab 24h Active Magnesium 2 tabs 24h Active PROCEDURES No Known procedures RESULTS No Results REASON FOR VISIT BV Insurance Providers [facility] Patient Patient Patient Patient Patient Subscriber Subscriber Subscriber Group Insurance Plan Plan Plan Plan ID Relationship Address Phone Name Date of ID Name Date of No Type Insurance Insurance Insurance Coverage to Subscriber Address Phone Name Dates [place] [address] [employer] Pat [id number] [place]Blue r[place]and Shield [id number] Shield [place] [address] [place] self Pat [id number] Blue [id number] [place] 1 [place] Shield [id number] Shield MEDICAL (GENERAL) HISTORY Type Description Date [...]
--- OUTSIDE RECORDS SUMMARY | 2019-07-15 07:39 | XMS REPORT ---
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 Active 310832404 disorders of pancreatic internal secretion Problem Leiomyoma of D25.9 Active 75740079 uterus, unspecified Problem Family history of Z80.3 Active 213397725 malignant neoplasm of breast Problem Fibromyalgia M79.7 Active 899937164 Problem Unspecified lump in N63.21 Active [id number] the left breast, upper outer quadrant Problem 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 34204197 chronicus Problem Dysuria R30.0 Active 66178603 Problem Noninflammatory N90.9 Active 182047442 disorder of vulva and perineum, unspecified Problem Acute vaginitis N76.0 Active 74681612 Problem Other abnormal and R92.8 Active 811628785 inconclusive findings on diagnostic imaging of breast Problem Disorder of the L98.9 Active 24170333 skin and subcutaneous tissue, unspecified Problem Endometriosis of N80.0 Active 50074354 uterus Problem Disorder of breast, N64.9 Active 95553770 unspecified Problem Secondary N94.5 Active 20419989 dysmenorrhea ALLERGIES No Information ENCOUNTERS Encounter Location Date Diagnosis [facility] [address] Feb, [place], [place] [id number] [facility] [address] Aug, [place], [place] [id number] [facility] [address] May, [place], [place] [id number] [facility] [address] May, [place] [id number] [facility] [address] May, [place] [id number] [facility] [address] May, [place] [id number] [facility] [address] May, [place] [id number] [facility] [address] May, [place] [id number] [facility] [address] May, [place] [id number] [facility] 103 May, Acute vaginitis N76.0 [place] [id number] [facility] [address] May, Dysuria R30.0 and Lichen [facility] simplex chronicus L28.0 [place] [id number] [facility] [address] May, [place], [place] [id number] [facility] [address] May, [place], [place] [id number] [facility] 103 Apr, Excessive and frequent [facility] menstruation with regular [place] [id number] cycle N92.0 ; Secondary dysmenorrhea N94.5 ; Leiomyoma of uterus, unspecified D25.9 ; Family history of malignant neoplasm of breast Z80.3 and Endometriosis of uterus N80.0 [facility] 103 Apr, [place] [id number] [facility] Apr, Excessive and frequent [facility] menstruation with regular [place], [place] [id number] cycle N92.0 [place] [address] Apr, Excessive and frequent [facility] [place] [id number] menstruation with regular cycle N92.0 ; Secondary dysmenorrhea N94.5 and Leiomyoma of uterus, unspecified D25.9 [facility] Apr, [place] [id number] [facility] [address] Mar, Excessive and frequent [facility] menstruation with regular [place], [place] [id number] cycle N92.0 ; Polycystic ovarian syndrome E28.2 ; Leiomyoma of uterus, unspecified D25.9 ; Family history of malignant neoplasm of breast Z80.3 ; Lichen simplex chronicus L28.0 ; Endometriosis of uterus N80.0 and Acute vaginitis N76.0 [facility] Mar, [place] [id number] [facility] Mar, [facility]initis N76.0 [facility] Dysuria R30.0 [place] [id number] [facility] Feb, Encounter for gynecological [facility] examination (general) [place], [place] [id number] (routine) with abnormal findings Z01.411 ; Excessive and frequent menstruation with regular cycle N92.0 ; Lichen simplex chronicus L28.0 ; Polycystic ovarian syndrome E28.2 ; Leiomyoma of uterus, unspecified D25.9 ; Family history of malignant neoplasm of breast Z80.3 and Endometriosis of uterus N80.0 [facility] Feb, Leiomyoma of uterus, OBGYN [facility] unspecified D25.9 [place], [place] [id number] [facility] 103 Feb, Disorder of breast, OBGYN [facility] unspecified N64.9 [place] [id number] [facility] [address] Feb, OBGYN [place] [id number] [facility] Jan, Lichen simplex chronicus [address] [place], L28.0 and [place] [id number] breast, unspecified N64.9 [facility] [address] Jan, OBGYN [place] [id number] [facility] 103 Dec, O[place] [id number] [facility] 103 Dec, Excessive and frequent [facility] menstruation with regular [place] [id number] cycle N92.0 ; Polycystic ovarian syndrome E28.2 ; Leiomyoma of uterus, unspecified D25.9 ; Family history of malignant neoplasm of breast Z80.3 ; Lichen simplex chronicus L28.0 and Endometriosis of uterus N80.0 [place] [address] Dec, Excessive and frequent [facility] [place] [id number] menstruation with regular cycle N92.0 ; Leiomyoma of uterus, unspecified D25.9 and Polycystic ovarian syndrome E28.2 [facility] [address] Nov, OBGYN [place] [id number] [facility] 103 Nov, Excessive and frequent [facility] menstruation with regular [place] [id number] cycle N92.0 [facility] 103 Nov, Excessive and frequent OBGYN [facility] menstruation with regular [place], [place] [id number] cycle N92.0 ; Polycystic ovarian syndrome E28.2 and Leiomyoma of uterus, unspecified D25.9 [facility] 103 Nov, O[place] [id number] [facility] 103 Oct, [place] [id number] [facility] 103 Oct, Excessive and frequent [facility] menstruation with regular [place] [id number] cycle N92.0 ; Polycystic ovarian syndrome E28.2 ; Leiomyoma of uterus, unspecified D25.9 ; Family history of malignant neoplasm of breast Z80.3 and Lichen simplex chronicus L28.0 [facility] 103 Oct, Disorder of the [facility] and [facility] subcutaneous tissue, [place], [place] [id number] unspecified L98.9 [facility] 103 September, O[place] [id number] [facility] 103 September, [place] [id number] [facility] 103 September, Excessive and frequent OBGYN [facility] menstruation with regular [place], [place] [id number] cycle N92.0 [facility] 103 Aug, Family history of malignant [facility] neoplasm of breast Z80.3 [place], [place] [id number] and Unspecified lump in the left breast, upper outer quadrant N63.21 [facility] 103 Feb, OBG[place] [id number] [facility] 103 Feb, Lichen simplex chronicus [facility] L28.0 ; Family history [place], [place] [id number] malignant neoplasm of breast Z80.3 and Unspecified lump in the left breast, upper outer quadrant N63.21 [facility] 103 Feb, [facility]inflammatory [facility] vulva and perineum, [place], [place] [id number] unspecified N90.9 [facility] Feb, Other abnormal and [facility] inconclusive findings on [place], [place] [id number] diagnostic imaging of breast R92.8 [facility] 103 Feb, [place] [id number] [facility] Feb, Noninflammatory disorder of [facility] vulva and perineum, [place] [id number] unspecified N90.9 [facility] [address] Jan, [place] [id number] [facility] 103 Jan, Encounter for gynecological [facility] examination (general) [place], [place] [id number] (routine) with abnormal findings Z01.411 ; Other [...] disorder of vulva and perineum, unspecified N90.9 [facility] [address] Jan, Leiomyoma of uterus, [facility] unspecified D25.9 and [place] [id number] Polycystic ovarian syndrome E28.2 [facility] 103 Aug, Other abnormal and [facility] inconclusive findings on [place] [id number] diagnostic imaging of breast R92.8 [facility] 103 Aug, Leiomyoma of uterus, [facility] unspecified D25.9 ; Abscess [place], [place] [id number] of vulva N76.4 and Family history of malignant neoplasm of breast Z80.3 [facility] 103 Aug, Polycystic ovarian syndrome [facility] E28.2 and Leiomyoma of [place], [place] [id number] uterus, unspecified D25.9 [facility] [address] 29 Jul, 2017 Abscess of vulva N76.4 [place] [id number] [facility] [address] 22 Jul, 2017 Abscess of vulva N76.4 [place] [id number] [facility] [address] 19 Jul, 2017 [place] [id number] [facility] 103 Jul, [place] [id number] [facility] 103 Jun, Family history of malignant [facility] neoplasm of breast Z80.3 [place] [id number] and Other abnormal and inconclusive findings on diagnostic imaging of breast R92.8 [facility] [address] Jun, [place] [id number] [facility] 103 Mar, Polycystic ovarian syndrome [facility] E28.2 ; Family history [place], [place] [id number] malignant neoplasm of breast Z80.3 and Family history of malignant neoplasm of digestive organs Z80.0 [facility] 103 Mar, [facility]stic [facility] syndrome [facility] E28.2 [place] [id number] [facility] [address] Feb, [place] [id number] [facility] 103 Jan, [place] [id number] [facility] 103 Jan, Encounter for gynecological [facility] examination (general) [place], [place] [id number] (routine) with abnormal findings Z01.411 ; Polycystic ovarian syndrome E28.2 ; Female infertility, unspecified N97.9 ; Candidiasis of skin and nail B37.2 ; Family history of malignant neoplasm of breast Z80.3 and Body mass index (BMI) 40.0-44.9, adult Z68.[address] [facility] [address] Dec, [place] [id number] [facility] Nov, [place] [id number] [facility] Oct, [place] [id number] [facility] Aug, Encounter for gynecological [facility] examination (general) [place], [place] [id number] (routine) with abnormal findings Z01.411 ; Polycystic ovarian syndrome E28.2 ; Nonscarring hair loss, unspecified L65.9 and Body mass index (BMI) 34.0-34.9, adult Z68.34 [facility] Jul, [place] [id number] [facility] [address] Jun, Polycystic ovarian syndrome [facility] E28.2 [place] [id number] 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 [address] Nov, O[place] [id number] [facility] 103 Oct, Menometrorrhagia 626.2 [place] [id number] [facility] 103 Oct, Menometrorrhagia 626.2 [place] [id number] [facility] 103 Oct, PELVIC PAIN 625.9 and OBGYN [facility] Menometrorrhagia 626.2 [place] [id number] [facility] 103 Oct, O[place], [place] [id number] [facility] 103 Oct, Menometrorrhagia 626.2 [place], [place] [id number] [facility] 103 Oct, PELVIC PAIN 625.9 and OBGYN [facility] Menometrorrhagia 626.2 [place], [place] [id number] [facility] 103 Jun, [place] [id number] [facility] 103 Jun, [place] [id number] [facility] 103 Jun, [place] [id number] [facility] 103 Jun, [place] [id number] [facility] 103 September, [place], [place] [id number] [facility] 103 Aug, FAMILY HX-BREAST MALIG OBGYN 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 V72.31 and Yeast infection [place], [place] [id number] 112.9 IMMUNIZATIONS No Known Immunizations SOCIAL HISTORY Never Assessed REASON FOR REFERRAL FUNCTIONAL STATUS PLAN OF CARE VITAL SIGNS MEDICATIONS Unknown Medications PROCEDURES No Known procedures RESULTS No Results REASON FOR VISIT Patient in hospital Insurance Providers [facility] Health Member Patient Patient Patient Patient Patient Subscriber Subscriber Subscriber Group Insurance Plan Plan Plan Plan ID Relationship Address Phone Name Date of ID Name Date of No Type Insurance Insurance Insurance Coverage to Subscriber Address Phone Name Dates [employer] [address] [employer] self Pat [id number] Blue [id number] [place] 1 Cross/[place] Cross/Blue rtrand Shield [id number] Shield [place] [address]- [place] Pat [id number] Blue [id number] [place] Shield [id number] Shield MEDICAL (GENERAL) HISTORY Type Description Date [...]
--- OUTSIDE RECORDS SUMMARY | 2019-07-15 07:39 | XMS REPORT ---
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 Problem Leiomyoma of D25.9 Active 65725345 uterus, unspecified Problem Family history of Z80.3 Active 252762188 malignant neoplasm of breast Problem Fibromyalgia M79.7 Active 001434615 Problem Unspecified lump in N63.21 Active 839440100864044 the left breast, upper outer quadrant Problem 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 05120342 chronicus Problem Dysuria R30.0 Active 24794593 Problem Noninflammatory N90.9 Active 045949809 disorder of vulva and perineum, unspecified Problem Acute vaginitis N76.0 Active 65590975 Problem Other abnormal and R92.8 Active 220951091 inconclusive findings on diagnostic imaging of breast Problem Disorder of the L98.9 Active 69796161 skin and subcutaneous tissue, unspecified Problem Endometriosis of N80.0 Active 35372202 uterus Problem Disorder of breast, N64.9 Active 21256998 unspecified Problem Secondary N94.5 Active 31395420 dysmenorrhea ALLERGIES Substance Reaction Event Type Date Status penicillin hives Drug Allergy Mar, Active ENCOUNTERS Encounter Location Date Diagnosis [facility] [address] Feb, [place], [place] [id number] [facility] [address] Aug, [place], [place] [id number] [facility] [address] May, [place] [id number] [facility] [address] May, [place] [id number] [facility] [address] May, [place] [id number] [facility] [address] May, [place], [place] [id number] [facility] [address] May, [place], [place] [id number] [facility] [address] May, [place], [place] [id number] [facility] [address] May, Acute vaginitis N76.0 [place], [place] [id number] [facility] [address] May, Dysuria R30.0 and Lichen [facility] simplex chronicus L28.0 [place], [place] [id number] [facility] [address] May, [place], [place] [id number] [facility] [address] May, [place], [place] [id number] [facility] 103 Apr, Excessive and frequent [facility] menstruation with regular [place], [place] [id number] cycle N92.0 ; Secondary dysmenorrhea N94.5 ; Leiomyoma of uterus, unspecified D25.9 ; Family history of malignant neoplasm of breast Z80.3 and Endometriosis of uterus N80.0 [facility] Apr, [place] [id number] [facility] Apr, Excessive and frequent [facility] menstruation with regular [place], [place] [id number] cycle N92.0 [facility] [address] Apr, Excessive and frequent [facility] [place] [id number] menstruation with regular cycle N92.0 ; Secondary dysmenorrhea N94.5 and Leiomyoma of uterus, unspecified D25.9 [facility] Apr, [place] [id number] [facility] [address] Mar, Excessive and frequent [facility] menstruation with regular [place], [place] [id number] cycle N92.0 ; Polycystic ovarian syndrome E28.2 ; Leiomyoma of uterus, unspecified D25.9 ; Family history of malignant neoplasm of breast Z80.3 ; Lichen simplex chronicus L28.0 ; Endometriosis of uterus N80.0 and Acute vaginitis N76.0 [facility] [address] Mar, [place] [id number] [facility] Mar, Acute vaginitis N76.0 and [facility] Dysuria R30.0 [place], [place] [id number] [facility] [address] Feb, Encounter for gynecological [facility] examination (general) [place], [place] [id number] (routine) with abnormal findings Z01.411 ; Excessive and frequent menstruation with regular cycle N92.0 ; Lichen simplex chronicus L28.0 ; Polycystic ovarian syndrome E28.2 ; Leiomyoma of uterus, unspecified D25.9 ; Family history of malignant neoplasm of breast Z80.3 and Endometriosis of uterus N80.0 [facility] Feb, Leiomyoma of uterus, [facility] unspecified D25.9 [place], [place] [id number] [facility] 103 Feb, Disorder of breast, OBGYN [facility] unspecified N64.9 [place], [place] [id number] [facility] [address] Feb, [place] [id number] [facility] [address] [facility] Jan, Lichen simplex chronicus [address] [place], L28.0 [place] [id number] breast, unspecified N64.9 [facility] Jan, [place] [id number] [facility] [address] Dec, [place] [id number] [facility] 103 Dec, [facility] with regular [place] [id number] cycle N92.0 ; Polycystic ovarian syndrome E28.2 ; Leiomyoma of uterus, unspecified D25.9 ; Family history of malignant neoplasm of breast Z80.3 ; Lichen simplex chronicus L28.0 and Endometriosis of uterus N80.0 [place] [address] Dec, Excessive and frequent [facility] [place] [id number] menstruation with regular cycle N92.0 ; Leiomyoma of uterus, unspecified D25.9 and Polycystic ovarian syndrome E28.2 [facility] Nov, [place] [id number] [facility] 103 Nov, [facility] and [facility]ation with regular [place], [place] [id number] cycle N92.0 [facility] 103 Nov, [facility] and [facility]ation with regular [place], [place] [id number] cycle N92.0 ; Polycystic ovarian syndrome E28.2 and Leiomyoma of uterus, unspecified D25.9 [facility] [address] Nov, [place] [id number] [facility] [address] Oct, [place] [id number] [facility] 103 Oct, [facility]cessive and [facility]ation with regular [place], [place] [id number] cycle N92.0 ; Polycystic ovarian syndrome E28.2 ; Leiomyoma of uterus, unspecified D25.9 ; Family history of malignant neoplasm of breast Z80.3 and Lichen simplex chronicus L28.0 [facility] 103 Oct, Disorder of the [facility] subcutaneous tissue, [place] [id number] unspecified L98.9 [facility] [address] September, [place] [id number] [facility] 103 September, [place] [id number] [facility] [address] September, [facility]cessive and [facility] menstruation with regular [place], [place] [id number] cycle N92.0 [facility] [address] Aug, Family history of malignant [facility] neoplasm of breast Z80.3 [place], [place] [id number] and Unspecified lump in the left breast, upper outer quadrant N63.21 [facility] [address] Feb, [place] [id number] [facility] 103 Feb, Lichen simplex [facility] L28.0 ; Family history [place], [place] [id number] malignant neoplasm of breast Z80.3 and Unspecified lump in the left breast, upper outer quadrant N63.21 [facility] [address] Feb, Noninflammatory disorder of [facility] vulva and perineum, [place], [place] [id number] unspecified N90.9 [facility] [address] Feb, Other abnormal and [facility] inconclusive findings on [place], [place] [id number] diagnostic imaging of breast R92.8 [facility] 103 Feb, [place] [id number] [facility] 103 Feb, Noninflammatory disorder of [facility] vulva and perineum, [place] [id number] unspecified N90.9 [facility] 103 Jan, [place] [id number] [facility] 103 Jan, Encounter for gynecological [facility] examination (general) [place], [place] [id number] (routine) with abnormal findings Z01.411 ; Other [...] [facility] 103 Jan, Leiomyoma of uterus, [facility] unspecified D25.9 and [place], [place] [id number] Polycystic ovarian syndrome E28.2 [facility] 103 Aug, Other abnormal and [facility] inconclusive findings on [place], [place] [id number] diagnostic imaging of breast R92.8 [facility] 103 Aug, Leiomyoma of uterus, [facility] unspecified D25.9 ; Abscess [place], [place] [id number] of vulva N76.4 and Family history of malignant neoplasm of breast Z80.3 [facility] 103 Aug, Polycystic ovarian syndrome [facility] E28.2 and Leiomyoma of [place], [place] [id number] uterus, unspecified D25.9 [facility] [address] 29 Jul, 2017 Abscess of vulva N76.4 [place] [id number] [facility] [address] Jul, Abscess of vulva N76.4 [place] [id number] [facility] [address] Jul, [place] [id number] [facility] 103 Jul, [place] [id number] [facility] 103 Jun, Family history of malignant [facility] neoplasm of breast Z80.3 [place], [place] [id number] and Other abnormal and inconclusive findings on diagnostic imaging of breast R92.8 [facility] [address] Jun, [place] [id number] [facility] Mar, [facility]stic [facility] E28.2 ; Family history [place], [place] [id number] malignant neoplasm of breast Z80.3 and Family history of malignant neoplasm of digestive organs Z80.0 [facility] 103 Mar, [facility]stic [facility] E28.2 [place], [place] [id number] [facility] 103 Feb, [place] [id number] [facility] [address] Jan, [place] [id number] [facility] [address] Jan, [facility] (general) [place], [place] [id number] (routine) with abnormal findings Z01.411 ; Polycystic ovarian syndrome E28.2 ; Female infertility, unspecified N97.9 ; Candidiasis of skin and nail B37.2 ; Family history of malignant neoplasm of breast Z80.3 and Body mass index (BMI) 40.0-44.9, adult Z68.41 [facility] [address] Dec, [place] [id number] [facility] [address] Nov, [place] [id number] [facility] 103 Oct, [place] [id number] [facility] 103 Aug, Encounter for gynecological [facility] examination (general) [place], [place] [id number] (routine) with abnormal findings Z01.411 ; Polycystic ovarian syndrome E28.2 ; Nonscarring hair loss, unspecified L65.9 and Body mass index (BMI) 34.0-34.9, adult Z68.34 [facility] [address] Jul, [place] [id number] [facility] 103 Jun, [facility]cystic ovarian 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 ; Polycystic ovarian syndrome E28.2 and Body mass index (BMI) 39.0-39.9, adult Z68.39 [facility] [address] Nov, PELVIC PAIN 625.9 ; [facility] Menometrorrhagia 626.2 and [place], [place] [id number] Hyperinsulinism 251.1 [facility] 103 Nov, [place] [id number] [facility] 103 Oct, Menometrorrhagia 626.2 [place] [id number] [facility] 103 Oct, Menometrorrhagia 626.2 [place] [id number] [facility] 103 Oct, PELVIC PAIN 625.9 and OBGYN [facility] Menometrorrhagia 626.2 [place], [place] [id number] [facility] 103 Oct, [place] [id number] [facility] 103 Oct, Menometrorrhagia 626.2 [place] [id number] [facility] 103 Oct, PELVIC PAIN 625.9 and OBGYN [facility] Menometrorrhagia 626.2 [place], [place] [id number] [facility] 103 Jun, [place] [id number] [facility] 103 Jun, [place] [id number] [facility] 103 Jun, [place] [id number] [facility] 103 Jun, [place] [id number] [facility] [address] September, [place] [id number] [facility] 103 Aug, FAMILY HX-BREAST MALIG OBGYN [facility] V16.3 [place], [place] [id number] [facility] [address] Aug, ROUTINE INTERIOR MECHANIC EXAMINATION OBGYN [facility] V72.31 and Yeast infection [place], [place] [id number] 112.9 IMMUNIZATIONS No Known Immunizations SOCIAL HISTORY Never Assessed REASON FOR REFERRAL FUNCTIONAL STATUS PLAN OF CARE Activity Details Follow Up f/u 2-3 wk post-op Reason: VITAL SIGNS Height 69 in 2019-04-16 Weight 278 lbs 2019-04-16 BMI 41.05 kg/m2 2019-04-16 Blood pressure systolic 122 mm Hg 2019-04-16 Blood pressure diastolic 84 mm Hg 2019-04-16 MEDICATIONS Medication Instructions Dosage Frequency Start End Date Duration Status Date Vitamin B oral QD 1 tab 24h Active complex One Daily orally once a day 1 tab(s) 24h Active Multi-Essential Multiple Vitamins ferrous sulfate orally once a day 5 mL 24h 30 day(s) Active 220 mg/5 mL Magnesium 2 tabs 24h Active Celexa 40mg Oral qd 1 tab 24h Active clobetasol applied topically 1 eduardo 30 days Active topical 0.05% 2 times a day x 3-6 weeks when symptomatic, then weekly Vitamin D 5000 oral qd 1 tab 24h Active Motrin oral PRN 1 tab Active PROCEDURES Procedure Date Ordered Result Body Site WET PREP, SALINE/INK Apr 16, 2019 RESULTS Name Result Date Reference Range UA RFX MICRO & CULTURE II 2019-04-16 URINE COLOR Yellow YELLOW URINE CLARITY Clear CLEAR URINE GLUCOSE - DIPSTICK NEGATIVE NEGATIVE URINE BILIRUBIN - DIPSTICK NEGATIVE NEGATIVE URINE KETONE NEGATIVE NEGATIVE URINE SPECIFIC GRAVITY 1.014 1.010-1.030 URINE BLOOD NEGATIVE Negative URINE PH 7.0 6.5-7.5 URINE PROTEIN - DIPSTICK NEGATIVE NEGATIVE URINE UROBILINOGEN - DIPSTICK < 2.0 < 2.0 URINE NITRITE - DIPSTICK NEGATIVE NEGATIVE URINE LEUK ESTERASE NEGATIVE NEGATIVE AFFIRM VAGINITIS PANEL 2019-04-16 Trichomonas vaginalis Negative [Negative] Gardnerella vaginalis Negative [Negative] Ifeoma species Negative [Negative] URINE CULTURE 2019-04-16 URINE CULTURE MIXED URETHRAL FELICIA REASON FOR VISIT presurgical counseling Insurance Providers [facility] Member Patient Patient Patient Patient Patient Subscriber Subscriber Subscriber Group Insurance Plan Plan Plan Plan ID Relationship Address Phone Name Date of ID Name Date of No Type Insurance Insurance Insurance Coverage to Subscriber Address Phone Name Dates Azra [address] [id number] Blue [id number] [place] Cross/Blue r[place]and Shield [id number] Shield Azra [address] [place] [id number] Blue [id number] Blue [place] 1 Cross/Blue [place] Cross/Blue r[place] Shield [id number] Shield MEDICAL (GENERAL) HISTORY Type Description Date [...]
--- OUTSIDE RECORDS SUMMARY | 2019-07-15 07:39 | XMS REPORT ---
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 Problem Leiomyoma of D25.9 Active 97669082 uterus, unspecified Problem Family history of Z80.3 Active 744884839 malignant neoplasm of breast Problem Fibromyalgia M79.7 Active 196132968 Problem Unspecified lump in N63.21 Active [id number] the left breast, upper outer quadrant Problem 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 43955514 chronicus Problem Dysuria R30.0 Active 02275531 Problem Noninflammatory N90.9 Active 329310477 disorder of vulva and perineum, unspecified Problem Acute vaginitis N76.0 Active 02527871 Problem Other abnormal and R92.8 Active 877722034 inconclusive findings on diagnostic imaging of breast Problem Disorder of the L98.9 Active 83493164 skin and subcutaneous tissue, unspecified Problem Endometriosis of N80.0 Active 93012404 uterus Problem Disorder of breast, N64.9 Active 43693067 unspecified Problem Secondary N94.5 Active 99902032 dysmenorrhea ALLERGIES No Information ENCOUNTERS Encounter Location Date Diagnosis [facility] [address] Feb, [place], [place] [id number] [facility] [address] Aug, [place], [place] [id number] [facility] [address] May, [place], [place] [id number] [facility] [address] May, [place] [id number] [facility] [address] May, [place] [id number] [facility] [address] May, [place] [id number] [facility] [address] May, [place], [place] [id number] [facility] [address] May, [place], [place] [id number] [facility] [address] May, Acute vaginitis N76.0 [place], [place] [id number] [facility] [address] May, Dysuria R30.0 and Lichen [facility] simplex chronicus L28.0 [place] [id number] [facility] [address] May, [place], [place] [id number] [facility] [address] May, [place], [place] [id number] [facility] [address] Apr, Excessive and frequent [facility] menstruation with regular [place], [place] [id number] cycle N92.0 ; Secondary dysmenorrhea N94.5 ; Leiomyoma of uterus, unspecified D25.9 ; Family history of malignant neoplasm of breast Z80.3 and Endometriosis of uterus N80.0 [facility] [address] Apr, [place] [id number] [facility] Apr, Excessive and frequent [facility] menstruation with regular [place], [place] [id number] cycle N92.0 [facility] [address] Apr, Excessive and frequent [facility] [place] [id number] menstruation with regular cycle N92.0 ; Secondary dysmenorrhea N94.5 and Leiomyoma of uterus, unspecified D25.9 [facility] Apr, [place] [id number] [facility] Mar, Excessive and frequent [facility] menstruation with regular [place], [place] [id number] cycle N92.0 ; Polycystic ovarian syndrome E28.2 ; Leiomyoma of uterus, unspecified D25.9 ; Family history of malignant neoplasm of breast Z80.3 ; Lichen simplex chronicus L28.0 ; Endometriosis of uterus N80.0 and Acute vaginitis N76.0 [facility] [address] Mar, [place] [id number] [facility] Mar, Acute vaginitis N76.0 and [facility] Dysuria R30.0 [place], [place] [id number] [facility] Feb, Encounter for gynecological [facility] examination (general) [place], [place] [id number] (routine) with abnormal findings Z01.411 ; Excessive and frequent menstruation with regular cycle N92.0 ; Lichen simplex chronicus L28.0 ; Polycystic ovarian syndrome E28.2 ; Leiomyoma of uterus, unspecified D25.9 ; Family history of malignant neoplasm of breast Z80.3 and Endometriosis of uterus N80.0 [facility] Feb, Leiomyoma of uterus, [facility] unspecified D25.9 [place] [id number] [facility] [address] Feb, Disorder of breast, OBGYN [facility] unspecified N64.9 [place], [place] [id number] [facility] [address] Feb, OBG[place] [id number] [facility] [address] [facility] Jan, Lichen simplex chronicus [address] [place], L28.0 [place] [id number] breast, unspecified N64.9 [facility] Jan, OBG[place] [id number] [facility] [address] Dec, O[place] [id number] [facility] 103 Dec, [facility] with regular [place] [id number] cycle N92.0 ; Polycystic ovarian syndrome E28.2 ; Leiomyoma of uterus, unspecified D25.9 ; Family history of malignant neoplasm of breast Z80.3 ; Lichen simplex chronicus L28.0 and Endometriosis of uterus N80.[address] [place] [address] Dec, Excessive and frequent [facility] [place] [id number] menstruation with regular cycle N92.0 ; Leiomyoma of uterus, unspecified D25.9 and Polycystic ovarian syndrome E28.2 [facility] Nov, OBG[place] [id number] [facility] Nov, Excessive and frequent OBG[facility] menstruation with regular [place] [id number] cycle N92.0 [facility] [address] Nov, Excessive and frequent OBG[facility] menstruation with regular [place], [place] [id number] cycle N92.0 ; Polycystic ovarian syndrome E28.2 and Leiomyoma of uterus, unspecified D25.9 [facility] [address] Nov, O[place] [id number] [facility] [address] Oct, [place] [id number] [facility] 103 Oct, [facility] with regular [place] [id number] cycle N92.0 ; Polycystic ovarian syndrome E28.2 ; Leiomyoma of uterus, unspecified D25.9 ; Family history of malignant neoplasm of breast Z80.3 and Lichen simplex chronicus L28.0 [facility] 103 Oct, Disorder of the skin and [facility] subcutaneous tissue, [place] [id number] unspecified L98.9 [facility] [address] September, [place] [id number] [facility] [address] September, [place] [id number] [facility] [address] September, [facility] and [facility]ation with regular [place] [id number] cycle N92.0 [facility] [address] Aug, Family history of malignant [facility] neoplasm of breast Z80.3 [place], [place] [id number] and Unspecified lump in the left breast, upper outer quadrant N63.21 [facility] [address] Feb, O[place] [id number] [facility] [address] Feb, [facility]hen simplex [facility]us [facility] L28.0 ; Family history of [place], [place] [address] malignant neoplasm of breast Z80.3 and Unspecified lump in the left breast, upper outer quadrant N63.21 [facility] [address] Feb, Noninflammatory disorder of [facility] vulva and perineum, [place], [place] [id number] unspecified N90.9 [facility] [address] Feb, Other [facility] inconclusive findings on [place] [id number] diagnostic imaging of breast R92.8 [facility] [address] Feb, [place] [id number] [facility] 103 Feb, Noninflammatory disorder of [facility] vulva and perineum, [place], [place] [id number] unspecified N90.9 [facility] [address] Jan, [place] [id number] [facility] [address] Jan, Encounter for gynecological [facility] examination (general) [place], [place] [id number] (routine) with abnormal findings Z01.411 ; Other [...] disorder of vulva and perineum, unspecified N90.9 [facility] [address] Jan, Leiomyoma of uterus, [facility] unspecified D25.9 and [place], [place] [id number] Polycystic ovarian syndrome E28.2 [facility] [address] Aug, Other abnormal and [facility] inconclusive findings on [place] [id number] diagnostic imaging of breast R92.8 [facility] 103 Aug, Leiomyoma of uterus, [facility] unspecified D25.9 ; Abscess [place], [place] [id number] of vulva N76.4 and Family history of malignant neoplasm of breast Z80.3 [facility] [address] Aug, Polycystic ovarian syndrome [facility] E28.2 and Leiomyoma of [place], [place] [id number] uterus, unspecified D25.9 [facility] [address] 29 Jul, 2017 Abscess of vulva N76.4 [place] [id number] [facility] [address] Jul, Abscess of vulva N76.4 [place] [id number] [facility] [address] 19 Jul, 2017 [place] [id number] [facility] Jul, [place] [id number] [facility] Jun, Family history of malignant [facility] neoplasm of breast Z80.3 [place] [id number] and Other abnormal and inconclusive findings on diagnostic imaging of breast R92.8 [facility] Jun, [place] [id number] [facility] Mar, Polycystic ovarian syndrome [facility] E28.2 ; Family history [place], [place] [address] malignant neoplasm of breast Z80.3 and Family history of malignant neoplasm of digestive organs Z80.0 [facility] [address] Mar, Polycystic ovarian syndrome [facility] E28.2 [place], [place] [id number] [facility] [address] Feb, [place] [id number] [facility] Jan, [place] [id number] [facility] [address] Jan, Encounter for gynecological [facility] examination (general) [place], [place] [id number] (routine) with abnormal findings Z01.411 ; Polycystic ovarian syndrome E28.2 ; Female infertility, unspecified N97.9 ; Candidiasis of skin and nail B37.2 ; Family history of malignant neoplasm of breast Z80.3 and Body mass index (BMI) 40.0-44.9, adult Z68.41 [facility] [address] Dec, [place] [id number] [facility] [address] Nov, [place] [id number] [facility] [address] Oct, [place] [address] [facility] [address] Aug, [facility]ological [facility] (general) [place], [place] [id number] (routine) with abnormal findings Z01.411 ; Polycystic ovarian syndrome E28.2 ; Nonscarring hair loss, unspecified L65.9 and Body mass index (BMI) 34.0-34.9, adult Z68.34 [facility] [address] Jul, [place] [id number] [facility] [address] Jun, Polycystic ovarian syndrome [facility] E28.2 [place] [id number] [facility] Mar, [place] [id number] [facility] Feb, Other specified conditions [facility] associated with female [place], [place] [id number] genital organs and menstrual cycle N94.89 ; Excessive and frequent menstruation with regular cycle N92.0 ; 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 ; Polycystic ovarian syndrome E28.2 and Body mass index (BMI) 39.0-39.9, adult Z68.39 [facility] [address] Nov, PELVIC PAIN 625.9 ; [facility] Menometrorrhagia 626.2 and [place], [place] [id number] Hyperinsulinism 251.1 [facility] [address] Nov, [place] [id number] [facility] [address] Oct, Menometrorrhagia 626.2 [place] [id number] [facility] [address] Oct, Menometrorrhagia 626.2 [place] [id number] [facility] [address] Oct, PELVIC PAIN 625.9 and OBGYN [facility] Menometrorrhagia 626.2 [place], [place] [id number] [facility] [address] Oct, [place] [id number] [facility] 103 Oct, Menometrorrhagia 626.2 [place] [id number] [facility] 103 Oct, PELVIC PAIN 625.9 and OBGYN [facility] Menometrorrhagia 626.2 [place], [place] [id number] [facility] [address] Jun, [place] [id number] [facility] [address] Jun, [place] [address] [facility] [address] Jun, [place] [id number] [facility] [address] Jun, [place] [id number] [facility] [address] September, [place] [id number] [facility] [address] Aug, FAMILY HX-BREAST MALIG OBG[facility] V16.3 [place], [place] [id number] [facility] [address] Aug, ROUTINE TAGMAN EXAMINATION OBGYN [facility] V72.31 and Yeast infection [place], [place] [id number] 112.9 IMMUNIZATIONS No Known Immunizations SOCIAL HISTORY Never Assessed REASON FOR REFERRAL FUNCTIONAL STATUS PLAN OF CARE VITAL SIGNS MEDICATIONS Unknown Medications PROCEDURES No Known procedures RESULTS No Results REASON FOR VISIT Insurance Providers [facility] Member Patient Patient Patient Patient Patient Subscriber Subscriber Subscriber Group Insurance Plan Plan Plan Plan ID Relationship Address Phone Name Date of ID Name Date of No Type Insurance Insurance Insurance Coverage to Subscriber Address Phone Name Dates [employer] [address] [place] [id number] Blue [id number] 89 [place] Cross/Blue [place] Cross/Blue r[place]and Shield [id number] Shield [employer] [address] [place] [id number] Blue [id number] 89 Blue [place] 1 Cross/Blue [employer] [place] Cross/Blue r[place]and Shield [id number] Shield MEDICAL (GENERAL) HISTORY Type Description Date [...]
--- OUTSIDE RECORDS SUMMARY | 2019-07-15 07:39 | XMS REPORT ---
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 Problem Leiomyoma of D25.9 Active 27530224 uterus, unspecified Problem Family history of Z80.3 Active 490686684 malignant neoplasm of breast Problem Fibromyalgia M79.7 Active 956910655 Problem Unspecified lump in N63.21 Active [id number] the left breast, upper outer quadrant Problem 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 36973506 chronicus Problem Dysuria R30.0 Active 01614447 Problem Noninflammatory N90.9 Active 335071960 disorder of vulva and perineum, unspecified Problem Acute vaginitis N76.0 Active 52488108 Problem Other abnormal and R92.8 Active 884014034 inconclusive findings on diagnostic imaging of breast Problem Disorder of the L98.9 Active 10332249 skin and subcutaneous tissue, unspecified Problem Endometriosis of N80.0 Active 54954624 uterus Problem Disorder of breast, N64.9 Active 13542856 unspecified Problem Secondary N94.5 Active 66037889 dysmenorrhea ALLERGIES Substance Reaction Event Type Date Status penicillin hives Drug Allergy 14 Feb, 2019 Active ENCOUNTERS Encounter Location Date Diagnosis [facility] [address] Feb, [place], [place] [id number] [facility] [address] Aug, [place], [place] [id number] [facility] [address] May, [place], [place] [id number] [facility] [address] May, [place] [id number] [facility] [address] May, [place] [id number] [facility] [address] May, [place] [id number] [facility] 103 May, [place], [place] [id number] [facility] [address] May, [place], [place] [id number] [facility] [address] May, Acute vaginitis N76.0 [place] [id number] [facility] [address] May, Dysuria R30.0 and Lichen [facility] simplex chronicus L28.0 [place] [id number] [facility] [address] May, [place] [id number] [facility] [address] May, [place], [place] [id number] [facility] [address] Apr, Excessive and frequent [facility] menstruation with regular [place], [place] [id number] cycle N92.0 ; Secondary dysmenorrhea N94.5 ; Leiomyoma of uterus, unspecified D25.9 ; Family history of malignant neoplasm of breast Z80.3 and Endometriosis of uterus N80.0 [facility] [address] Apr, [place] [id number] [facility] Apr, Excessive and frequent [facility] menstruation with regular [place], [place] [id number] cycle N92.0 [facility] [address] Apr, Excessive and frequent [facility] [place] [id number] menstruation with regular cycle N92.0 ; Secondary dysmenorrhea N94.5 and Leiomyoma of uterus, unspecified D25.9 [facility] [address] Apr, [place] [id number] [facility] [address] Mar, Excessive and frequent [facility] menstruation with regular [place], [place] [id number] cycle N92.0 ; Polycystic ovarian syndrome E28.2 ; Leiomyoma of uterus, unspecified D25.9 ; Family history of malignant neoplasm of breast Z80.3 ; Lichen simplex chronicus L28.0 ; Endometriosis of uterus N80.0 and Acute vaginitis N76.0 [facility] [address] Mar, [place] [id number] [facility] Mar, Acute vaginitis N76.0 and [facility] Dysuria R30.0 [place] [id number] [facility] [address] Feb, Encounter for gynecological [facility] examination (general) [place], [place] [id number] (routine) with abnormal findings Z01.411 ; Excessive and frequent menstruation with regular cycle N92.0 ; Lichen simplex chronicus L28.0 ; Polycystic ovarian syndrome E28.2 ; Leiomyoma of uterus, unspecified D25.9 ; Family history of malignant neoplasm of breast Z80.3 and Endometriosis of uterus N80.0 [facility] Feb, Leiomyoma of uterus, [facility] unspecified D25.9 [place], [place] [id number] [facility] 103 Feb, Disorder of breast, OBGYN [facility] unspecified N64.9 [place] [id number] [facility] [address] Feb, O[place] [id number] [facility] [address] [facility] Jan, Lichen simplex chronicus [address] [place], L28.0 and Disorder of [place] [id number] breast, unspecified N64.9 [facility] Jan, [place] [id number] [facility] [address] Dec, [place] [id number] [facility] 103 Dec, [facility] with regular [place] [id number] cycle N92.0 ; Polycystic ovarian syndrome E28.2 ; Leiomyoma of uterus, unspecified D25.9 ; Family history of malignant neoplasm of breast Z80.3 ; Lichen simplex chronicus L28.0 and Endometriosis of uterus N80.0 [place] [address] Dec, Excessive and frequent [facility] [place] [id number] menstruation with regular cycle N92.0 ; Leiomyoma of uterus, unspecified D25.9 and Polycystic ovarian syndrome E28.2 [facility] Nov, [place] [id number] [facility] [address] Nov, Excessive and frequent [facility] menstruation with regular [place] [id number] cycle N92.0 [facility] [address] Nov, [facility]cessive and [facility] menstruation with regular [place] [id number] cycle N92.0 ; Polycystic ovarian syndrome E28.2 and Leiomyoma of uterus, unspecified D25.9 [facility] [address] Nov, [place] [id number] [facility] [address] Oct, [place] [id number] [facility] 103 Oct, Excessive and frequent [facility]ation with regular [place] [id number] cycle N92.0 ; Polycystic ovarian syndrome E28.2 ; Leiomyoma of uterus, unspecified D25.9 ; Family history of malignant neoplasm of breast Z80.3 and Lichen simplex chronicus L28.0 [facility] [address] Oct, Disorder of the [facility], [place], [place] [id number] unspecified L98.9 [facility] [address] September, [place] [id number] [facility] [address] September, [place] [id number] [facility] [address] September, Excessive and frequent [facility] menstruation with regular [place] [id number] cycle N92.0 [facility] [address] Aug, Family history of malignant [facility] neoplasm of breast Z80.3 [place], [place] [id number] and Unspecified lump in the left breast, upper outer quadrant N63.21 [facility] [address] Feb, [place] [id number] [facility] [address] Feb, Lichen simplex chronicus [facility] L28.0 ; Family history of [place], [place] [id number] malignant neoplasm of breast Z80.3 and Unspecified lump in the left breast, upper outer quadrant N63.21 [facility] [address] Feb, Noninflammatory disorder of [facility] vulva and perineum, [place], [place] [id number] unspecified N90.9 [facility] [address] Feb, Other abnormal and [facility] inconclusive findings on [place] [id number] diagnostic imaging of breast R92.8 [facility] [address] Feb, [place] [id number] [facility] 103 Feb, Noninflammatory disorder of [facility] vulva and perineum, [place], [place] [id number] unspecified N90.9 [facility] 103 Jan, [place] [id number] [facility] 103 Jan, Encounter for gynecological [facility] examination (general) [place], [place] [id number] (routine) with abnormal findings Z01.411 ; Other [...] disorder of vulva and perineum, unspecified N90.9 [facility] 103 Jan, Leiomyoma of uterus, [facility] unspecified D25.9 and [place], [place] [id number] Polycystic ovarian syndrome E28.2 [facility] 103 Aug, Other abnormal and [facility] inconclusive findings on [place] [id number] diagnostic imaging of breast R92.8 [facility] 103 Aug, Leiomyoma of uterus, [facility] unspecified D25.9 ; Abscess [place], [place] [id number] of vulva N76.4 and Family history of malignant neoplasm of breast Z80.3 [facility] 103 Aug, Polycystic ovarian syndrome [facility] E28.2 and Leiomyoma of [place], [place] [id number] uterus, unspecified D25.9 [facility] [address] 29 Jul, 2017 Abscess of vulva N76.4 [place] [id number] [facility] [address] Jul, Abscess of vulva N76.4 [place] [id number] [facility] [address] Jul, [place] [id number] [facility] [address] Jul, [place] [id number] [facility] [address] Jun, Family history of malignant [facility] neoplasm of breast Z80.3 [place], [place] [id number] and Other abnormal and inconclusive findings on diagnostic imaging of breast R92.8 [facility] [address] Jun, [place] [id number] [facility] Mar, [facility]cystic ovarian syndrome [facility] E28.2 ; Family history of [place], [place] [id number] malignant neoplasm of breast Z80.3 and Family history of malignant neoplasm of digestive organs Z80.0 [facility] [address] Mar, [facility]cystic ovarian syndrome [facility] E28.2 [place] [id number] [facility] [address] Feb, [place] [id number] [facility] [address] Jan, [place] [id number] [facility] [address] Jan, [facility] (general) [place], [place] [id number] (routine) with abnormal findings Z01.411 ; Polycystic ovarian syndrome E28.2 ; Female infertility, unspecified N97.9 ; Candidiasis of skin and nail B37.2 ; Family history of malignant neoplasm of breast Z80.3 and Body mass index (BMI) 40.0-44.9, adult Z68.41 [facility] [address] Dec, [place] [id number] [facility] [address] Nov, [place] [id number] [facility] [address] Oct, [place] [id number] [facility] 103 Aug, Encounter for gynecological [facility] examination (general) [place], [place] [id number] (routine) with abnormal findings Z01.411 ; Polycystic ovarian syndrome E28.2 ; Nonscarring hair loss, unspecified L65.9 and Body mass index (BMI) 34.0-34.9, adult Z68.34 [facility] [address] Jul, [place] [id number] [facility] [address] Jun, Polycystic ovarian syndrome [facility] E28.2 [place] [id number] [facility] [address] Mar, [place] [id number] [facility] 103 Feb, Other specified conditions [facility] associated with female [place], [place] [id number] genital organs and menstrual cycle N94.89 ; Excessive and frequent menstruation with regular cycle N92.0 ; 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 ; Polycystic ovarian syndrome E28.2 and Body mass index (BMI) 39.0-39.9, adult Z68.39 [facility] [address] Nov, PELVIC PAIN 625.9 ; [facility] Menometrorrhagia 626.2 and [place], [place] [id number] Hyperinsulinism 251.1 [facility] [address] Nov, [place] [id number] [facility] 103 Oct, Menometrorrhagia 626.2 [place] [id number] [facility] 103 Oct, Menometrorrhagia 626.2 [place] [id number] [facility] 103 Oct, PELVIC PAIN 625.9 and OBGYN [facility] Menometrorrhagia 626.2 [place], [place] [id number] [facility] [address] Oct, [place] [id number] [facility] 103 Oct, Menometrorrhagia 626.2 [place] [id number] [facility] 103 Oct, PELVIC PAIN 625.9 and OBGYN [facility] Menometrorrhagia 626.2 [place], [place] [id number] [facility] [address] Jun, [place] [id number] [facility] [address] Jun, [place] [id number] [facility] [address] Jun, [place] [id number] [facility] [address] Jun, [place] [id number] [facility] [address] September, [place] [id number] [facility] 103 Aug, FAMILY HX-BREAST MALIG OBGYN [facility] V16.3 [place] [id number] [facility] [address] Aug, 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 [facility] V72.31 and Yeast infection [place], [place] [id number] 112.9 IMMUNIZATIONS No Known Immunizations SOCIAL HISTORY Never Assessed REASON FOR REFERRAL FUNCTIONAL STATUS PLAN OF CARE Activity Details Follow Up as scheduled Reason: VITAL SIGNS Height 69 in 2019-03-05 Weight 275 lbs 2019-03-05 BMI 40.61 kg/m2 2019-03-05 Blood pressure systolic 132 mm Hg 2019-03-05 Blood pressure diastolic 74 mm Hg 2019-03-05 MEDICATIONS Medication Instructions Dosage Frequency Start End Date Duration Status Date Vitamin B oral QD 1 tab 24h Active complex Motrin oral PRN 1 tab Active Celexa 40mg Oral qd 1 tab 24h Active Magnesium 1 tablet 24h Active clobetasol applied topically 1 eduardo 30 days Active topical 0.05% 2 times a day x 3-6 weeks when symptomatic, then weekly One Daily orally once a day 1 tab(s) 24h Active Multi-Essential Multiple Vitamins Vitamin D 5000 oral qd 1 tab 24h Active ferrous sulfate orally once a day 5 mL 24h 30 day(s) Active 220 mg/5 mL iron oral QD 1 tab 24h Active PROCEDURES No Known procedures RESULTS No Results REASON FOR VISIT f/u breast rash- possible Skin BX Insurance Providers [facility] Patient Patient Patient Patient Patient Subscriber Subscriber Subscriber Group Insurance Plan Plan Plan Plan ID Relationship Address Phone Name Date of ID Name Date of No Type Insurance Insurance Insurance Coverage to Subscriber Address Phone Name Dates [employer] [address] [employer] self Pat [id number] [place] 1 Cross/[place]Blue r[place]and Shield [id number] Shield [employer] [address] [employer] Pat [id number] Blue [id number] 89 Blue [place] Shield [id number] Shield MEDICAL (GENERAL) HISTORY Type Description Date Medical History fibromyalgia Medical History anxiety Medical History preclampsia Medical History heart failure (post ) Medical History fibroids Medical History IBS Medical History PCOS Medical History Ahsan bhattast cancer risk > 20% Medical History anemia Surgical History 2003 Surgical History Hysteroscopy, D&C 12/26/18 Surgical History oral surgery 2009 Surgical History TLH/BS/cysto 04/2019 Surgical History Hysterectomy 04/2019 Hospitalization History see above
--- OUTSIDE RECORDS SUMMARY | 2019-07-15 07:39 | XMS REPORT ---
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 Problem Leiomyoma of D25.9 Active 61201230 uterus, unspecified Problem Family history of Z80.3 Active 633525389 malignant neoplasm of breast Problem Fibromyalgia M79.7 Active 860450711 Problem Unspecified lump in N63.21 Active [id number] the left breast, upper outer quadrant Problem 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 Problem Dysuria R30.0 Active 80845352 Problem Noninflammatory N90.9 Active 159146898 disorder of vulva and perineum, unspecified Problem Acute vaginitis N76.0 Active 84194052 Problem Other abnormal and R92.8 Active 151794605 inconclusive findings on diagnostic imaging of breast Problem Disorder of the L98.9 Active 25161540 skin and subcutaneous tissue, unspecified Problem Endometriosis of N80.0 Active 59737250 uterus Problem Disorder of breast, N64.9 Active 74101785 unspecified Problem Secondary N94.5 Active 79974266 dysmenorrhea ALLERGIES Substance Reaction Event Type Date Status penicillin hives Drug Allergy May, Active ENCOUNTERS Encounter Location Date Diagnosis [facility] Feb, [place], [place] [id number] [facility] Aug, [place], [place] [id number] [facility] [address] May, [place], [place] [id number] [facility] [address] May, [place] [id number] [facility] 103 May, [place] [id number] [facility] [address] May, [place] [id number] [facility] 103 May, [place] [id number] [facility] [address] May, [place] [id number] [facility] May, [place] [id number] [facility] 103 May, Acute vaginitis N76.0 [place] [id number] [facility] May, Dysuria R30.0 and Lichen [facility] simplex chronicus L28.0 [place] [id number] [facility] May, [place] [id number] [facility] [address] May, [place], [place] [id number] [facility] 103 Apr, Excessive and frequent [facility] menstruation with regular [place], [place] [id number] cycle N92.0 ; Secondary dysmenorrhea N94.5 ; Leiomyoma of uterus, unspecified D25.9 ; Family history of malignant neoplasm of breast Z80.3 and Endometriosis of uterus N80.0 [facility] 103 Apr, [place] [id number] [facility] Apr, Excessive and frequent [facility] menstruation with regular [place], [place] [id number] cycle N92.0 [place] [address] Apr, Excessive and frequent [facility] [place] [place] [id number] menstruation with regular cycle N92.0 ; Secondary dysmenorrhea N94.5 and Leiomyoma of uterus, unspecified D25.9 [facility] Apr, [place] [id number] [facility] 103 Mar, Excessive and frequent [facility] menstruation with regular [place], [place] [id number] cycle N92.0 ; Polycystic ovarian syndrome E28.2 ; Leiomyoma of uterus, unspecified D25.9 ; Family history of malignant neoplasm of breast Z80.3 ; Lichen simplex chronicus L28.0 ; Endometriosis of uterus N80.0 and Acute vaginitis N76.0 [facility] 103 Mar, [place] [id number] [facility] Mar, Acute vaginitis N76.0 and [facility] Dysuria R30.0 [place], [place] [id number] [facility] Feb, Encounter for gynecological [facility] examination (general) [place], [place] [id number] (routine) with abnormal findings Z01.411 ; Excessive and frequent menstruation with regular cycle N92.0 ; Lichen simplex chronicus L28.0 ; Polycystic ovarian syndrome E28.2 ; Leiomyoma of uterus, unspecified D25.9 ; Family history of malignant neoplasm of breast Z80.3 and Endometriosis of uterus N80.0 [facility] 103 Feb, Leiomyoma of uterus, OBG[facility] unspecified D25.9 [place] [id number] [facility] 103 Feb, Disorder of breast, OBG[facility] unspecified N64.9 [place] [id number] [facility] [address] Feb, OBGYN [place], [place] [id number] [facility] Jan, Lichen simplex chronicus [address] [place], L28.0 and Disorder [place] [id number] breast, unspecified N64.9 [facility] [address] Jan, OBGYN [place] [id number] [facility] 103 Dec, OBG[place] [id number] [facility] 103 Dec, [facility] and [facility] with regular [place] [id number] cycle N92.0 ; Polycystic ovarian syndrome E28.2 ; Leiomyoma of uterus, unspecified D25.9 ; Family history of malignant neoplasm of breast Z80.3 ; Lichen simplex chronicus L28.0 and Endometriosis of uterus N80.0 [place] [address] Dec, Excessive and frequent [facility] [place] [id number] menstruation with regular cycle N92.0 ; Leiomyoma of uterus, unspecified D25.9 and Polycystic ovarian syndrome E28.2 [facility] Nov, OBGYN [place] [id number] [facility] 103 Nov, [facility]cessive and frequent [facility]ation with regular [place] [id number] cycle N92.0 [facility] 103 Nov, Excessive and frequent [facility] menstruation with regular [place] [id number] cycle N92.0 ; Polycystic ovarian syndrome E28.2 and Leiomyoma of uterus, unspecified D25.9 [facility] 103 Nov, OBGYN [place] [id number] [facility] 103 Oct, OBGYN [place] [id number] [facility] 103 Oct, Excessive and frequent O[facility] menstruation with regular [place], [place] [id number] cycle N92.0 ; Polycystic ovarian syndrome E28.2 ; Leiomyoma of uterus, unspecified D25.9 ; Family history of malignant neoplasm of breast Z80.3 and Lichen simplex chronicus L28.0 [facility] 103 Oct, Disorder of the skin and [facility] subcutaneous tissue, [place], [place] [id number] unspecified L98.9 [facility] 103 September, OBG[place], [place] [id number] [facility] 103 September, OBGYN [place] [id number] [facility] 103 September, Excessive and frequent [facility] menstruation with regular [place], [place] [id number] cycle N92.0 [facility] 103 Aug, Family history of malignant [facility] neoplasm of breast Z80.3 [place], [place] [id number] and Unspecified lump in the left breast, upper outer quadrant N63.21 [facility] 103 Feb, OBGYN [place], [place] [id number] [facility] 103 Feb, [facility]hen [facility]us [facility] L28.0 ; Family history of [place], [place] [id number] malignant neoplasm of breast Z80.3 and Unspecified lump in the left breast, upper outer quadrant N63.21 [facility] 103 Feb, Noninflammatory disorder of [facility] vulva and perineum, [place] [id number] unspecified N90.9 [facility] 103 Feb, Other abnormal and [facility] inconclusive findings on [place], [place] [id number] diagnostic imaging of breast R92.8 [facility] 103 Feb, OBGYN [place], [place] [id number] [facility] 103 Feb, Noninflammatory disorder of [facility] vulva and perineum, [place] [id number] unspecified N90.9 [facility] 103 Jan, [place] [id number] [facility] 103 Jan, Encounter for gynecological [facility] examination (general) [place], [place] [id number] (routine) with abnormal findings Z01.411 ; Other [...] of vulva and perineum, unspecified N90.9 [facility] 103 Jan, Leiomyoma of uterus, [facility] unspecified D25.9 and [place], [place] [id number] Polycystic ovarian syndrome E28.2 [facility] 103 Aug, Other abnormal and [facility] inconclusive findings on [place], [place] [id number] diagnostic imaging of breast R92.8 [facility] 103 Aug, Leiomyoma of uterus, [facility] unspecified D25.9 ; Abscess [place], [place] [id number] of vulva N76.4 and Family history of malignant neoplasm of breast Z80.3 [facility] 103 Aug, [facility]stic [facility] E28.2 and Leiomyoma of [place], [place] [id number] uterus, unspecified D25.9 [facility] 103 Jul, Abscess of vulva N76.4 [place] [id number] [facility] 103 Jul, Abscess of vulva N76.4 [place] [id number] [facility] 103 Jul, [place] [id number] [facility] Jul, [place] [id number] [facility] 103 Jun, Family history of malignant [facility] neoplasm of breast Z80.3 [place] [id number] and Other abnormal and inconclusive findings on diagnostic imaging of breast R92.8 [facility] 103 Jun, [place] [id number] [facility] 103 Mar, Polycystic ovarian syndrome [facility] E28.2 ; Family history of [place], [place] [id number] malignant neoplasm of breast Z80.3 and Family history of malignant neoplasm of digestive organs Z80.0 [facility] 103 Mar, [facility]stic [facility] E28.2 [place] [id number] [facility] 103 Feb, [place] [id number] [facility] 103 Jan, [place] [id number] [facility] 103 Jan, [facility] [place] [id number] (routine) with abnormal findings Z01.411 ; Polycystic ovarian syndrome E28.2 ; Female infertility, unspecified N97.9 ; Candidiasis of skin and nail B37.2 ; Family history of malignant neoplasm of breast Z80.3 and Body mass index (BMI) 40.0-44.9, adult Z68.41 [facility] Dec, [place] [id number] [facility] Nov, [place] [id number] [facility] Oct, [place] [id number] [facility] 103 Aug, Encounter for gynecological [facility] examination (general) [place], [place] [id number] (routine) with abnormal findings Z01.411 ; Polycystic ovarian syndrome E28.2 ; Nonscarring hair loss, unspecified L65.9 and Body mass index (BMI) 34.0-34.9, adult Z68.34 [facility] Jul, [place] [id number] [facility] Jun, Polycystic ovarian syndrome [facility] E28.2 [place] [id number] [facility] Mar, [place] [id number] [facility] 103 Feb, Other specified conditions [facility] associated with female [place], [place] [id number] genital organs and menstrual cycle N94.89 ; Excessive and frequent menstruation with regular cycle N92.0 ; 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 ; Polycystic ovarian syndrome E28.2 and Body mass index (BMI) 39.0-39.9, adult Z68.39 [facility] Nov, PELVIC PAIN 625.9 ; [facility] Menometrorrhagia 626.2 and [place] [id number] Hyperinsulinism 251.1 [facility] Nov, [place], [place] [id number] [facility] 103 Oct, Menometrorrhagia 626.2 [place] [id number] [facility] 103 Oct, Menometrorrhagia 626.2 [place], [place] [id number] [facility] 103 Oct, PELVIC PAIN 625.9 and OBGYN [facility] Menometrorrhagia 626.2 [place], [place] [id number] [facility] 103 Oct, [place] [id number] [facility] 103 Oct, Menometrorrhagia 626.2 [place], [place] [id number] [facility] 103 Oct, PELVIC PAIN 625.9 and OBGYN [facility] Menometrorrhagia 626.2 [place], [place] [id number] [facility] 103 Jun, [place], [place] [id number] [facility] 103 Jun, [place], [place] [id number] [facility] 103 Jun, [place], [place] [id number] [facility] 103 Jun, [place] [id number] [facility] 103 September, O[place], [place] [id number] [facility] 103 Aug, FAMILY HX-BREAST MALIG O[facility] V16.3 [place] [id number] [facility] 103 Aug, 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[facility] V72.31 and Yeast infection [place], [place] [id number] 112.9 IMMUNIZATIONS No Known Immunizations SOCIAL HISTORY Never Assessed REASON FOR REFERRAL FUNCTIONAL STATUS PLAN OF CARE Activity Details Follow Up as scheduled Reason: VITAL SIGNS Height 69 in 2019-05-28 Weight 280 lbs 2019-05-28 BMI 41.34 kg/m2 2019-05-28 Blood pressure systolic 130 mm Hg 2019-05-28 Blood pressure diastolic 86 mm Hg 2019-05-28 MEDICATIONS Medication Instructions Dosage Frequency Start End Date Duration Status Date Motrin oral PRN 1 tab Active clobetasol applied topically 1 eduardo May, Active topical 0.05% to vulva once 2020 weekly Vitamin D 5000 oral qd 1 tab 24h Active Magnesium 2 tabs 24h Active ibuprofen 800 orally q 8 hrs 1 tab(s) Apr, Active mg PRN 2018 Vitamin B oral QD 1 tab 24h Active complex One Daily orally once a day 1 tab(s) 24h Active Multi-Essential Multiple Vitamins Celexa 40mg Oral qd 1 tab 24h Active ferrous sulfate orally once a day 5 mL 24h 30 day(s) Active 220 mg/5 mL Macrobid orally 2 times a 1 cap(s) 12h May, 7 days Active macrocrystals-m day 2019 onohydrate 100 mg PROCEDURES Procedure Date Ordered Result Body Site URINE-NO MICRO May 28, 2019 RESULTS Name Result Date Reference Range Urine dip Glucose blood protein Nitrite Leuko 15 Urobilinogen Keytone Bilirubin pH REASON FOR VISIT burning/abdominal pain increasingly worse, Needs clobatisol cream Insurance Providers [facility] Health Member Patient Patient Patient Patient Patient Subscriber Subscriber Subscriber Group Insurance Plan Plan Plan Plan ID Relationship Address Phone Name Date of ID Name Date of No Type Insurance Insurance Insurance Coverage to Subscriber Address Phone Name Dates [place] [address] [place] [id number] Blue [id number] [place] 1 Cross/[place] Cross/Blue rtrand Shield [id number] Shield [place] [address] [place] [id number] Blue [id number] Blue [place] Cross[place] r[place] Shield [id number] Shield MEDICAL (GENERAL) HISTORY Type Description Date [...]
--- OUTSIDE RECORDS SUMMARY | 2019-07-15 07:39 | XMS REPORT ---
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 Problem Leiomyoma of D25.9 Active 98105935 uterus, unspecified Problem Family history of Z80.3 Active 376805112 malignant neoplasm of breast Problem Fibromyalgia M79.7 Active 837483632 Problem Unspecified lump in N63.21 Active [id number] the left breast, upper outer quadrant Problem 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 17862489 chronicus Problem Dysuria R30.0 Active 47742148 Problem Noninflammatory N90.9 Active 686320638 disorder of vulva and perineum, unspecified Problem Acute vaginitis N76.0 Active 92705663 Problem Other abnormal and R92.8 Active 276777652 inconclusive findings on diagnostic imaging of breast Problem Disorder of the L98.9 Active 98038536 skin and subcutaneous tissue, unspecified Problem Endometriosis of N80.0 Active 38967390 uterus Problem Disorder of breast, N64.9 Active 89876567 unspecified Problem Secondary N94.5 Active 81949602 dysmenorrhea ALLERGIES No Information ENCOUNTERS Encounter Location Date Diagnosis [facility] [address] Feb, [place], [place] [id number] [facility] [address] Aug, [place], [place] [id number] [facility] [address] May, [place], [place] [id number] [facility] [address] May, [place] [id number] [facility] [address] May, [place] [id number] [facility] [address] May, [place] [id number] [facility] [address] May, [place] [id number] [facility] [address] May, [place], [place] [id number] [facility] [address] May, [place], [place] [id number] [facility] 103 May, Acute vaginitis N76.0 [place] [id number] [facility] [address] May, Dysuria R30.0 and Lichen [facility] simplex chronicus L28.0 [place] [id number] [facility] [address] May, [place], [place] [id number] [facility] [address] May, [place], [place] [id number] [facility] [address] Apr, Excessive and frequent [facility] menstruation with regular [place], [place] [id number] cycle N92.0 ; Secondary dysmenorrhea N94.5 ; Leiomyoma of uterus, unspecified D25.9 ; Family history of malignant neoplasm of breast Z80.3 and Endometriosis of uterus N80.0 [facility] [address] Apr, [place] [id number] [facility] [address] Apr, Excessive and frequent [facility] menstruation with regular [place] [id number] cycle N92.0 [place] [address] Apr, Excessive and frequent [facility] [place] [place] [id number] menstruation with regular cycle N92.0 ; Secondary dysmenorrhea N94.5 and Leiomyoma of uterus, unspecified D25.9 [facility] [address] Apr, [place] [id number] [facility] Mar, Excessive and frequent [facility] menstruation with regular [place], [place] [id number] cycle N92.0 ; Polycystic ovarian syndrome E28.2 ; Leiomyoma of uterus, unspecified D25.9 ; Family history of malignant neoplasm of breast Z80.3 ; Lichen simplex chronicus L28.0 ; Endometriosis of uterus N80.0 and Acute vaginitis N76.0 [facility] [address] Mar, [place] [id number] [facility] Mar, Acute vaginitis N76.0 and [facility] Dysuria R30.0 [place], [place] [id number] [facility] [address] Feb, Encounter for gynecological [facility] examination (general) [place], [place] [id number] (routine) with abnormal findings Z01.411 ; Excessive and frequent menstruation with regular cycle N92.0 ; Lichen simplex chronicus L28.0 ; Polycystic ovarian syndrome E28.2 ; Leiomyoma of uterus, unspecified D25.9 ; Family history of malignant neoplasm of breast Z80.3 and Endometriosis of uterus N80.0 [facility] [address] Feb, Leiomyoma of uterus, OBGYN [facility] unspecified D25.9 [place], [place] [id number] [facility] 103 Feb, Disorder of breast, OBGYN [facility] unspecified N64.9 [place] [id number] [facility] [address] Feb, OBG[place] [id number] [facility] Jan, Lichen simplex chronicus [address] [place], L28.0 and Disorder [place] [id number] breast, unspecified N64.9 [facility] [address] Jan, OBGYN [place], [place] [id number] [facility] 103 Dec, OBGYN [place] [id number] [facility] 103 Dec, Excessive and frequent [facility]ation with regular [place] [id number] cycle N92.0 ; Polycystic ovarian syndrome E28.2 ; Leiomyoma of uterus, unspecified D25.9 ; Family history of malignant neoplasm of breast Z80.3 ; Lichen simplex chronicus L28.0 and Endometriosis of uterus N80.0 [place] [address] Dec, Excessive and frequent [facility] [place] [id number] menstruation with regular cycle N92.0 ; Leiomyoma of uterus, unspecified D25.9 and Polycystic ovarian syndrome E28.2 [facility] [address] Nov, OBGYN [place] [id number] [facility] 103 Nov, Excessive and frequent [facility] menstruation with regular [place] [id number] cycle N92.0 [facility] 103 Nov, Excessive and frequent OBGYN [facility] menstruation with regular [place], [place] [id number] cycle N92.0 ; Polycystic ovarian syndrome E28.2 and Leiomyoma of uterus, unspecified D25.9 [facility] 103 Nov, OBGYN [place], [place] [id number] [facility] 103 Oct, OBG[place] [id number] [facility] 103 Oct, Excessive and frequent [facility] menstruation with regular [place] [id number] cycle N92.0 ; Polycystic ovarian syndrome E28.2 ; Leiomyoma of uterus, unspecified D25.9 ; Family history of malignant neoplasm of breast Z80.3 and Lichen simplex chronicus L28.0 [facility] 103 Oct, Disorder of the skin and [facility] subcutaneous tissue, [place] [id number] unspecified L98.9 [facility] 103 September, OBGYN [place] [id number] [facility] 103 September, OBGYN [place] [id number] [facility] 103 September, Excessive and frequent OBGYN [facility] menstruation with regular [place], [place] [id number] cycle N92.0 [facility] 103 Aug, Family history of malignant [facility] neoplasm of breast Z80.3 [place], [place] [id number] and Unspecified lump in the left breast, upper outer quadrant N63.21 [facility] [address] Feb, OBG[place] [id number] [facility] 103 Feb, Lichen simplex chronicus [facility] L28.0 ; Family history of [place], [place] [id number] malignant neoplasm of breast Z80.3 and Unspecified lump in the left breast, upper outer quadrant N63.21 [facility] 103 Feb, Noninflammatory disorder of [facility] vulva and perineum, [place] [id number] unspecified N90.9 [facility] [address] Feb, Other abnormal and [facility] inconclusive findings on [place], [place] [id number] diagnostic imaging of breast R92.8 [facility] 103 Feb, [place] [id number] [facility] Feb, Noninflammatory disorder of [facility] vulva and perineum, [place], [place] [id number] unspecified N90.9 [facility] 103 Jan, [place] [id number] [facility] 103 Jan, Encounter for gynecological [facility] examination (general) [place], [place] [id number] (routine) with abnormal findings Z01.411 ; Other [...] disorder of vulva and perineum, unspecified N90.9 [facility] 103 Jan, Leiomyoma of uterus, [facility] unspecified D25.9 and [place] [id number] Polycystic ovarian syndrome E28.2 [facility] 103 Aug, Other abnormal and [facility] inconclusive findings on [place], [place] [id number] diagnostic imaging of breast R92.8 [facility] 103 Aug, Leiomyoma of uterus, [facility] unspecified D25.9 ; Abscess [place], [place] [id number] of vulva N76.4 and Family history of malignant neoplasm of breast Z80.3 [facility] 103 Aug, Polycystic ovarian syndrome [facility] E28.2 and Leiomyoma of [place], [place] [id number] uterus, unspecified D25.9 [facility] [address] 29 Jul, 2017 Abscess of vulva N76.4 [place] [id number] [facility] [address] 22 Jul, 2017 Abscess of vulva N76.4 [place] [id number] [facility] [address] 19 Jul, 2017 [place] [id number] [facility] [address] Jul, [place] [id number] [facility] 103 Jun, Family history of malignant [facility] neoplasm of breast Z80.3 [place], [place] [id number] and Other abnormal and inconclusive findings on diagnostic imaging of breast R92.8 [facility] [address] Jun, [place] [id number] [facility] 103 Mar, Polycystic ovarian syndrome [facility] E28.2 ; Family history of [place], [place] [id number] malignant neoplasm of breast Z80.3 and Family history of malignant neoplasm of digestive organs Z80.0 [facility] [address] Mar, Polycystic ovarian syndrome [facility] E28.2 [place] [id number] [facility] [address] Feb, [place] [id number] [facility] [address] Jan, [place] [id number] [facility] [address] Jan, Encounter for gynecological [facility] examination (general) [place], [place] [id number] (routine) with abnormal findings Z01.411 ; Polycystic ovarian syndrome E28.2 ; Female infertility, unspecified N97.9 ; Candidiasis of skin and nail B37.2 ; Family history of malignant neoplasm of breast Z80.3 and Body mass index (BMI) 40.0-44.9, adult Z68.41 [facility] Dec, [place] [id number] [facility] Nov, [place] [id number] [facility] Oct, [place] [id number] [facility] [address] Aug, Encounter for gynecological [facility] examination (general) [place], [place] [id number] (routine) with abnormal findings Z01.411 ; Polycystic ovarian syndrome E28.2 ; Nonscarring hair loss, unspecified L65.9 and Body mass index (BMI) 34.0-34.9, adult Z68.[address] [facility] Jul, [place] [id number] [facility] Jun, Polycystic ovarian syndrome [facility] E28.2 [place] [id number] [facility] Mar, [place], [place] [id number] 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 ; Polycystic ovarian syndrome E28.2 and Body mass index (BMI) 39.0-39.9, adult Z68.39 [facility] 103 Nov, PELVIC PAIN 625.9 ; [facility] Menometrorrhagia 626.2 and [place] [id number] Hyperinsulinism 251.1 [facility] Nov, O[place] [id number] [facility] 103 Oct, Menometrorrhagia 626.2 O[place], [place] [id number] [facility] 103 Oct, Menometrorrhagia 626.2 O[place], [place] [id number] [facility] 103 Oct, PELVIC PAIN 625.9 and OBGYN [facility] Menometrorrhagia 626.2 [place], [place] [id number] [facility] 103 Oct, O[place], [place] [id number] [facility] 103 Oct, Menometrorrhagia 626.2 O[place], [place] [id number] [facility] 103 Oct, PELVIC PAIN 625.9 and OBGYN [facility] Menometrorrhagia 626.2 [place], [place] [id number] [facility] 103 Jun, OBGYN [place], [place] [id number] [facility] 103 Jun, O[place] [id number] [facility] 103 Jun, [place] [id number] [facility] 103 Jun, O[place], [place] [id number] [facility] 103 September, O[place], [place] [id number] [facility] 103 Aug, FAMILY HX-BREAST MALIG OBGYN [facility] V16.3 [place], [place] [id number] [facility] 103 Aug, ROUTINE WOODS BOSS EXAMINATION OBGYN [facility] V72.31 and Yeast infection [place], [place] [id number] 112.9 IMMUNIZATIONS No Known Immunizations SOCIAL HISTORY Never Assessed REASON FOR REFERRAL FUNCTIONAL STATUS PLAN OF CARE VITAL SIGNS MEDICATIONS Unknown Medications PROCEDURES No Known procedures RESULTS No Results REASON FOR VISIT Call from Insurance Providers [facility] Patient Patient Patient Patient Patient Subscriber Subscriber Subscriber Group Insurance Plan Plan Plan Plan ID Relationship Address Phone Name Date of ID Name Date of No Type Insurance Insurance Insurance Coverage to Subscriber Address Phone Name Dates [employer] [address] Excell[employer] self Pat [id number] [place] 1 Cross/Blue [place] Cross/Blue rtrand Shield [id number] Shield [place] [address] [employer] Pat [id number] Blue [id number] 89 Blue [place] Cross[place] Cross/Blue r[place] Shield [id number] Shield MEDICAL (GENERAL) HISTORY Type Description Date [...]
--- OUTSIDE RECORDS SUMMARY | 2019-07-15 07:39 | XMS REPORT ---
:1980 Author Name Francisco Ansley Address [address] [place] [address] Care Team Providers Name Role Phone Ansley Singh Unavailable Unavailable PROBLEMS Type Condition ICD9-CM [id number] Onset Condition SNOMED Code Code Code Dates Status Problem Polycystic ovarian E28.2 Active 30208812 syndrome Problem Excessive and N92.0 Active 237134319 frequent menstruation with regular cycle Problem Body mass index Z68.41 Active 391892958 (BMI) 40.0-44.9, adult Problem Other specified E16.8 Active 665813190 disorders of pancreatic internal secretion Problem Leiomyoma of D25.9 Active 41459972 uterus, unspecified Problem Family history of Z80.3 Active 982366930 malignant neoplasm of breast Problem Fibromyalgia M79.7 Active 050241496 Problem Unspecified lump in N63.21 Active [id number] the left breast, upper outer quadrant Problem 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 54331961 chronicus Problem Dysuria R30.0 Active 81590940 Problem Noninflammatory N90.9 Active 504632699 disorder of vulva and perineum, unspecified Problem Acute vaginitis N76.0 Active 99784102 Problem Other abnormal and R92.8 Active 213185974 inconclusive findings on diagnostic imaging of breast Problem Disorder of the L98.9 Active 36253135 skin and subcutaneous tissue, unspecified Problem Endometriosis of N80.0 Active 80608518 uterus Problem Disorder of breast, N64.9 Active 62119477 unspecified Problem Secondary N94.5 Active 17256212 dysmenorrhea ALLERGIES Substance Reaction Event Type Date Status penicillin hives Drug Allergy May, Active ENCOUNTERS Encounter Location Date Diagnosis [facility] Feb, [place], [place] [id number] [facility] Aug, [place], [place] [id number] [facility] May, [place], [place] [id number] [facility] [address] May, [place] [id number] [facility] [address] May, [place] [id number] [facility] [address] May, [place] [id number] [facility] [address] May, [place] [id number] [facility] [address] May, [place], [place] [id number] [facility] May, [place], [place] [id number] [facility] May, Acute vaginitis N76.0 [place] [id number] [facility] [address] May, Dysuria R30.0 and Lichen [facility] simplex chronicus L28.0 [place] [id number] [facility] [address] May, [place] [id number] [facility] [address] May, [place], [place] [id number] [facility] Apr, Excessive and frequent [facility] menstruation with regular [place], [place] [id number] cycle N92.0 ; Secondary dysmenorrhea N94.5 ; Leiomyoma of uterus, unspecified D25.9 ; Family history of malignant neoplasm of breast Z80.3 and Endometriosis of uterus N80.0 [facility] Apr, [place] [id number] [facility] Apr, Excessive and frequent [facility] menstruation with regular [place], [place] [id number] cycle N92.0 [place] [address] Apr, Excessive and frequent [facility] [place] [id number] menstruation with regular cycle N92.0 ; Secondary dysmenorrhea N94.5 and Leiomyoma of uterus, unspecified D25.9 [facility] Apr, [place] [id number] [facility] Mar, Excessive and frequent [facility] menstruation with regular [place], [place] [id number] cycle N92.0 ; Polycystic ovarian syndrome E28.2 ; Leiomyoma of uterus, unspecified D25.9 ; Family history of malignant neoplasm of breast Z80.3 ; Lichen simplex chronicus L28.0 ; Endometriosis of uterus N80.0 and Acute vaginitis N76.0 [facility] 103 Mar, [place] [id number] [facility] Mar, Acute vaginitis N76.0 and [facility] Dysuria R30.0 [place] [id number] [facility] Feb, Encounter for gynecological [facility] examination (general) [place], [place] [id number] (routine) with abnormal findings Z01.411 ; Excessive and frequent menstruation with regular cycle N92.0 ; Lichen simplex chronicus L28.0 ; Polycystic ovarian syndrome E28.2 ; Leiomyoma of uterus, unspecified D25.9 ; Family history of malignant neoplasm of breast Z80.3 and Endometriosis of uterus N80.0 [facility] Feb, Leiomyoma of uterus, OBGYN [facility] unspecified D25.9 [place] [id number] [facility] Feb, Disorder of breast, OBGYN [facility] unspecified N64.9 [place] [id number] [facility] Feb, OBG[place] [id number] [facility] Jan, Lichen simplex chronicus [address] [place], L28.0 [place] [id number] breast, unspecified N64.9 [facility] Jan, OBGYN [place] [id number] [facility] Dec, OBGYN [place] [id number] [facility] 103 Dec, [facility] regular [place] [id number] cycle N92.0 ; Polycystic ovarian syndrome E28.2 ; Leiomyoma of uterus, unspecified D25.9 ; Family history of malignant neoplasm of breast Z80.3 ; Lichen simplex chronicus L28.0 and Endometriosis of uterus N80.0 [place] [address] Dec, Excessive and frequent [facility] [place] [id number] menstruation with regular cycle N92.0 ; Leiomyoma of uterus, unspecified D25.9 and Polycystic ovarian syndrome E28.2 [facility] Nov, OBGYN [place] [id number] [facility] 103 Nov, [facility]cessive and frequent [facility] with regular [place] [id number] cycle N92.0 [facility] [address] Nov, Excessive and frequent [facility] menstruation with regular [place] [id number] cycle N92.0 ; Polycystic ovarian syndrome E28.2 and Leiomyoma of uterus, unspecified D25.9 [facility] Nov, OBGYN [place] [id number] [facility] Oct, OBGYN [place] [id number] [facility] 103 Oct, Excessive and frequent OBGYN [facility] menstruation with regular [place], [place] [id number] cycle N92.0 ; Polycystic ovarian syndrome E28.2 ; Leiomyoma of uterus, unspecified D25.9 ; Family history of malignant neoplasm of breast Z80.3 and Lichen simplex chronicus L28.0 [facility] 103 Oct, Disorder of the skin and [facility] subcutaneous tissue, [place], [place] [id number] unspecified L98.9 [facility] September, OBGYN [place] [id number] [facility] September, OBGYN [place] [id number] [facility] 103 September, Excessive and frequent [facility]ation with regular [place] [id number] cycle N92.0 [facility] Aug, Family history of malignant [facility] neoplasm of breast Z80.3 [place], [place] [id number] and Unspecified lump in the left breast, upper outer quadrant N63.21 [facility] Feb, OBGYN [place] [id number] [facility] Feb, [facility]us [facility] L[facility].0 ; Family history of [place], [place] [id number] malignant neoplasm of breast Z80.3 and Unspecified lump in the left breast, upper outer quadrant N63.21 [facility] Feb, Noninflammatory disorder of [facility] vulva and perineum, [place], [place] [id number] unspecified N90.9 [facility] 103 Feb, Other abnormal and [facility] inconclusive findings on [place], [place] [id number] diagnostic imaging of breast R92.8 [facility] 103 Feb, OBGYN [place] [id number] [facility] 103 Feb, Noninflammatory disorder of [facility] vulva and perineum, [place], [place] [id number] unspecified N90.9 [facility] Jan, [place] [id number] [facility] Jan, Encounter for gynecological [facility] examination (general) [place], [place] [id number] (routine) with abnormal findings Z01.411 ; Other [...] disorder of vulva and perineum, unspecified N90.9 [facility] Jan, Leiomyoma of uterus, [facility] unspecified D25.9 and [place], [place] [id number] Polycystic ovarian syndrome E28.2 [facility] 103 Aug, Other abnormal and [facility] inconclusive findings on [place], [place] [id number] diagnostic imaging of breast R92.8 [facility] 103 Aug, Leiomyoma of uterus, [facility] unspecified D25.9 ; Abscess [place], [place] [id number] of vulva N76.4 and Family history of malignant neoplasm of breast Z80.3 [facility] [address] Aug, [facility]stic [facility] syndrome [facility] E28.2 and Leiomyoma of [place], [place] [id number] uterus, unspecified D25.9 [facility] Jul, Abscess of vulva N76.4 [place] [id number] [facility] [address] Jul, Abscess of vulva N76.4 [place] [id number] [facility] Jul, [place] [id number] [facility] Jul, [place] [id number] [facility] 103 Jun, Family history of malignant [facility] neoplasm of breast Z80.3 [place], [place] [id number] and Other abnormal and inconclusive findings on diagnostic imaging of breast R92.8 [facility] Jun, [place] [id number] [facility] 103 Mar, Polycystic ovarian syndrome [facility] E28.2 ; Family history [place], [place] [id number] malignant neoplasm of breast Z80.3 and Family history of malignant neoplasm of digestive organs Z80.0 [facility] [address] Mar, [facility]cystic [facility] syndrome [facility] E28.2 [place] [id number] [facility] Feb, [place] [id number] [facility] Jan, [place] [id number] [facility] Jan, [facility] ([facility] [place], [place] [id number] (routine) with abnormal findings Z01.411 ; Polycystic ovarian syndrome E28.2 ; Female infertility, unspecified N97.9 ; Candidiasis of skin and nail B37.2 ; Family history of malignant neoplasm of breast Z80.3 and Body mass index (BMI) 40.0-44.9, adult Z68.41 [facility] Dec, [place] [id number] [facility] Nov, [place] [id number] [facility] Oct, [place] [id number] [facility] Aug, Encounter for gynecological [facility] examination (general) [place], [place] [id number] (routine) with abnormal findings Z01.411 ; Polycystic ovarian syndrome E28.2 ; Nonscarring hair loss, unspecified L65.9 and Body mass index (BMI) 34.0-34.9, adult Z68.34 [facility] Jul, [place] [id number] [facility] Jun, Polycystic ovarian syndrome [facility] E28.2 [place], [place] [id number] [facility] Mar, [place] [id number] [facility] Feb, Other specified conditions [facility] associated with female [place], [place] [id number] genital organs and menstrual cycle N94.89 ; Excessive and frequent menstruation with regular cycle N92.0 ; 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 ; Polycystic ovarian syndrome E28.2 and Body mass index (BMI) 39.0-39.9, adult Z68.39 [facility] Nov, PELVIC PAIN 625.9 ; [facility] Menometrorrhagia 626.2 and [place], [place] [id number] Hyperinsulinism 251.1 [facility] Nov, OBG[place] [id number] [facility] Oct, Menometrorrhagia 626.2 [place] [id number] [facility] 103 Oct, Menometrorrhagia 626.2 [place] [id number] [facility] 103 Oct, PELVIC PAIN 625.9 and OBGYN [facility] Menometrorrhagia 626.2 [place], [place] [id number] [facility] Oct, OBG[place] [id number] [facility] 103 Oct, Menometrorrhagia 626.2 [place] [id number] [facility] 103 Oct, PELVIC PAIN 625.9 and OBGYN [facility] Menometrorrhagia 626.2 [place], [place] [id number] [facility] [address] Jun, [place] [id number] [facility] 103 Jun, OBGYN [place] [id number] [facility] 103 Jun, [place]BG[place] [id number] [facility] Jun, [place] [id number] [facility] 103 September, [place]BG[place] [id number] [facility] 103 Aug, FAMILY HX-BREAST MALIG OBGYN [facility] V16.3 [place], [place] [id number] [facility] Aug, ROUTINE EMERGENCY CARE ATTENDANT EXAMINATION OBGYN [facility] V72.31 and Yeast infection [place], [place] [id number] 112.9 IMMUNIZATIONS No Known Immunizations SOCIAL HISTORY Never Assessed REASON FOR REFERRAL FUNCTIONAL STATUS PLAN OF CARE Activity Details Follow Up as scheduled Reason: VITAL SIGNS Height 69 in 2019-05-31 Weight 280 lbs 2019-05-31 BMI 41.34 kg/m2 2019-05-31 Blood pressure systolic 122 mm Hg 2019-05-31 Blood pressure diastolic 80 mm Hg 2019-05-31 MEDICATIONS Medication Instructions Dosage Frequency Start End Date Duration Status Date ibuprofen 800 orally q 8 hrs 1 tab(s) Apr, Active mg PRN 2018 Motrin oral PRN 1 tab Active Magnesium 2 tabs 24h Active Vitamin D 5000 oral qd 1 tab 24h Active clobetasol applied topically 1 eduardo May, Active topical 0.05% to vulva once 2019 weekly Flagyl 500 mg orally BID 1 tab(s) 12h May, 7 day(s) Active 2019 Celexa 40mg Oral qd 1 tab 24h Active One Daily orally once a day 1 tab(s) 24h Active Multi-Essential Multiple Vitamins ferrous sulfate orally once a day 5 mL 24h 30 day(s) Active 220 mg/5 mL Vitamin B oral QD 1 tab 24h Active complex PROCEDURES No Known procedures RESULTS Name Result Date Reference Range AFFIRM VAGINITIS PANEL 2019-05-31 Trichomonas vaginalis Negative [Negative] Gardnerella vaginalis POSITIVE [Negative] Ifeoma species Negative [Negative] REASON FOR VISIT Continued possible infection Insurance Providers [facility] Member Patient Patient Patient Patient Patient Subscriber Subscriber Subscriber Group Insurance Plan Plan Plan Plan ID Relationship Address Phone Name Date of ID Name Date of No Type Insurance Insurance Insurance Coverage to Subscriber Address Phone Name Dates [place] [address] [place] [id number] Blue [id number] [place] 1 Cross/[place] Cross/Blue r[place]and Shield [id number] Shield [place] [address] [place] 1980 [id number] Blue [id number] Blue [place] Shield [id number] Shield MEDICAL (GENERAL) HISTORY Type Description Date [...]
--- OUTSIDE RECORDS SUMMARY | 2019-07-15 07:39 | XMS REPORT ---
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 Problem Leiomyoma of D25.9 Active 54748831 uterus, unspecified Problem Family history of Z80.3 Active 410214362 malignant neoplasm of breast Problem Fibromyalgia M79.7 Active 936045418 Problem Unspecified lump in N63.21 Active 779108586225601 the left breast, upper outer quadrant Problem 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 03684750 chronicus Problem Dysuria R30.0 Active 21621293 Problem Noninflammatory N90.9 Active 948134428 disorder of vulva and perineum, unspecified Problem Acute vaginitis N76.0 Active 97468753 Problem Other abnormal and R92.8 Active 107825295 inconclusive findings on diagnostic imaging of breast Problem Disorder of the L98.9 Active 65612857 skin and subcutaneous tissue, unspecified Problem Endometriosis of N80.0 Active 89256523 uterus Problem Disorder of breast, N64.9 Active 64650627 unspecified Problem Secondary N94.5 Active 33378218 dysmenorrhea ALLERGIES Substance Reaction Event Type Date Status penicillin hives Drug Allergy Mar, Active ENCOUNTERS Encounter Location Date Diagnosis [facility] [address] Feb, [place], [place] [id number] [facility] [address] Aug, [place], [place] [id number] [facility] [address] May, [place], [place] [id number] [facility] [address] May, [place] [id number] [facility] [address] May, [place] [id number] [facility] [address] May, [place] [id number] [facility] [address] May, [place] [id number] [facility] [address] May, [place], [place] [id number] [facility] May, Acute vaginitis N76.0 [place] [id number] [facility] [address] May, Dysuria R30.0 and Lichen [facility] simplex chronicus L28.0 [place] [id number] [facility] [address] May, [place], [place] [id number] [facility] [address] May, [place] [id number] [facility] Apr, Excessive and frequent [facility] menstruation with regular [place], [place] [id number] cycle N92.0 ; Secondary dysmenorrhea N94.5 ; Leiomyoma of uterus, unspecified D25.9 ; Family history of malignant neoplasm of breast Z80.3 and Endometriosis of uterus N80.0 [facility] Apr, [place] [id number] [facility] Apr, Excessive and frequent [facility] menstruation with regular [place], [place] [id number] cycle N92.0 [facility] [address] Apr, Excessive and frequent [facility] [place] [id number] menstruation with regular cycle N92.0 ; Secondary dysmenorrhea N94.5 and Leiomyoma of uterus, unspecified D25.9 [facility] Apr, [place] [id number] [facility] Mar, Excessive and frequent [facility] menstruation with regular [place], [place] [id number] cycle N92.0 ; Polycystic ovarian syndrome E28.2 ; Leiomyoma of uterus, unspecified D25.9 ; Family history of malignant neoplasm of breast Z80.3 ; Lichen simplex chronicus L28.0 ; Endometriosis of uterus N80.0 and Acute vaginitis N76.0 [facility] Mar, [place] [id number] [facility] Mar, Acute vaginitis N76.0 and [facility] Dysuria R30.0 [place] [id number] [facility] Feb, Encounter for gynecological [facility] examination (general) [place], [place] [id number] (routine) with abnormal findings Z01.411 ; Excessive and frequent menstruation with regular cycle N92.0 ; Lichen simplex chronicus L28.0 ; Polycystic ovarian syndrome E28.2 ; Leiomyoma of uterus, unspecified D25.9 ; Family history of malignant neoplasm of breast Z80.3 and Endometriosis of uterus N80.0 [facility] Feb, Leiomyoma of uterus, [facility] unspecified D25.9 [place] [id number] [facility] Feb, Disorder of breast, OBGYN [facility] unspecified N64.9 [place] [id number] [facility] Feb, OBG[place] [id number] [facility] Jan, Lichen simplex chronicus [address] [place], L28.0 and Disorder of [place] [id number] breast, unspecified N64.9 [facility] Jan, [place] [id number] [facility] [address] Dec, [place] [id number] [facility] [address] Dec, Excessive and frequent OBGYN [facility] menstruation with regular [place], [place] [id number] cycle N92.0 ; Polycystic ovarian syndrome E28.2 ; Leiomyoma of uterus, unspecified D25.9 ; Family history of malignant neoplasm of breast Z80.3 ; Lichen simplex chronicus L28.0 and Endometriosis of uterus N80.[address] [place] [address] Dec, Excessive and frequent [facility] [place] [id number] menstruation with regular cycle N92.0 ; Leiomyoma of uterus, unspecified D25.9 and Polycystic ovarian syndrome E28.2 [facility] Nov, [place] [id number] [facility] [address] Nov, Excessive and frequent OBGYN [facility] menstruation with regular [place] [id number] cycle N92.0 [facility] [address] Nov, Excessive and frequent OBGYN [facility] menstruation with regular [place], [place] [id number] cycle N92.0 ; Polycystic ovarian syndrome E28.2 and Leiomyoma of uterus, unspecified D25.9 [facility] [address] Nov, [place] [id number] [facility] [address] Oct, [place] [id number] [facility] Oct, Excessive and frequent OBGYN [facility] menstruation with regular [place], [place] [id number] cycle N92.0 ; Polycystic ovarian syndrome E28.2 ; Leiomyoma of uterus, unspecified D25.9 ; Family history of malignant neoplasm of breast Z80.3 and Lichen simplex chronicus L28.0 [facility] [address] Oct, [facility] the [facility], [place] [id number] unspecified L98.9 [facility] [address] September, [place] [id number] [facility] [address] September, [place] [id number] [facility] [address] September, Excessive and frequent OBGYN [facility] menstruation with regular [place] [id number] cycle N92.0 [facility] Aug, [facility] neoplasm of breast Z80.3 [place], [place] [id number] and Unspecified lump in the left breast, upper outer quadrant N63.21 [facility] [address] Feb, [place] [id number] [facility] Feb, Lichen simplex chronicus OBGYN [facility] L28.0 ; Family history of [place], [place] [id number] malignant neoplasm of breast Z80.3 and Unspecified lump in the left breast, upper outer quadrant N63.21 [facility] Feb, [facility]inflammatory [facility] vulva and perineum, [place], [place] [id number] unspecified N90.9 [facility] [address] Feb, Other abnormal and [facility] inconclusive findings on [place], [place] [id number] diagnostic imaging of breast R92.8 [facility] Feb, [place] [id number] [facility] Feb, Noninflammatory disorder of [facility] vulva and perineum, [place] [id number] unspecified N90.9 [facility] Jan, [place] [id number] [facility] Jan, Encounter for gynecological [facility] examination (general) [place], [place] [id number] (routine) with abnormal findings Z01.411 ; Other [...] disorder of vulva and perineum, unspecified N90.9 [facility] Jan, Leiomyoma of uterus, [facility] unspecified D25.9 and [place], [place] [id number] Polycystic ovarian syndrome E28.2 [facility] [address] Aug, Other abnormal and [facility] inconclusive findings on [place], [place] [id number] diagnostic imaging of breast R92.8 [facility] [address] Aug, Leiomyoma of uterus, [facility] unspecified D25.9 ; Abscess [place] [id number] of vulva N76.4 and Family history of malignant neoplasm of breast Z80.3 [facility] [address] Aug, Polycystic ovarian syndrome [facility] E28.2 and Leiomyoma of [place], [place] [id number] uterus, unspecified D25.9 [facility] 29 Jul, 2017 Abscess of vulva N76.4 [place] [id number] [facility] [address] Jul, Abscess of vulva N76.4 [place] [id number] [facility] Jul, [place] [id number] [facility] Jul, [place] [id number] [facility] Jun, Family history of malignant [facility] neoplasm of breast Z80.3 [place], [place] [id number] and Other abnormal and inconclusive findings on diagnostic imaging of breast R92.8 [facility] Jun, [place] [id number] [facility] Mar, Polycystic ovarian syndrome [facility] E28.2 ; Family history [place] [id number] malignant neoplasm of breast Z80.3 and Family history of malignant neoplasm of digestive organs Z80.0 [facility] [address] Mar, [facility] E28.2 [place] [id number] [facility] Feb, [place] [id number] [facility] Jan, [place] [id number] [facility] Jan, [facility] [place], [place] [id number] (routine) with abnormal findings Z01.411 ; Polycystic ovarian syndrome E28.2 ; Female infertility, unspecified N97.9 ; Candidiasis of skin and nail B37.2 ; Family history of malignant neoplasm of breast Z80.3 and Body mass index (BMI) 40.0-44.9, adult Z68.41 [facility] [address] Dec, [place] [id number] [facility] Nov, [place] [id number] [facility] Oct, [place] [id number] [facility] [address] Aug, Encounter for gynecological [facility] examination (general) [place], [place] [id number] (routine) with abnormal findings Z01.411 ; Polycystic ovarian syndrome E28.2 ; Nonscarring hair loss, unspecified L65.9 and Body mass index (BMI) 34.0-34.9, adult Z68.34 [facility] Jul, [place] [id number] [facility] [address] Jun, [facility]cystic ovarian syndrome [facility] E28.2 [place] [id number] [facility] [address] Mar, [place] [id number] [facility] [address] Feb, Other specified conditions [facility] associated with female [place], [place] [id number] genital organs and menstrual cycle N94.89 ; Excessive and frequent menstruation with regular cycle N92.0 ; 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 ; Polycystic ovarian syndrome E28.2 and Body mass index (BMI) 39.0-39.9, adult Z68.39 [facility] [address] Nov, PELVIC PAIN 625.9 ; [facility] Menometrorrhagia 626.2 and [place], [place] [id number] Hyperinsulinism 251.1 [facility] [address] Nov, [place] [id number] [facility] [address] Oct, Menometrorrhagia 626.2 [place] [id number] [facility] [address] Oct, Menometrorrhagia 626.2 [place] [id number] [facility] [address] Oct, PELVIC PAIN 625.9 and OBGYN [facility] Menometrorrhagia 626.2 [place], [place] [id number] [facility] [address] Oct, [place] [id number] [facility] [address] Oct, Menometrorrhagia 626.2 [place] [id number] [facility] [address] Oct, PELVIC PAIN 625.9 and OBGYN [facility] Menometrorrhagia 626.2 [place], [place] [id number] [facility] [address] Jun, [place] [id number] [facility] [address] Jun, [place] [id number] [facility] [address] Jun, [place], [place] [id number] [facility] [address] Jun, [place] [id number] [facility] [address] September, [place] [id number] [facility] [address] Aug, FAMILY HX-BREAST MALIG OBGYN [facility] V16.3 [place], [place] [id number] [facility] Aug, ROUTINE BANQUET SERVER EXAMINATION OBGYN [facility] V72.31 and Yeast infection [place], [place] [id number] 112.9 IMMUNIZATIONS No Known Immunizations SOCIAL HISTORY Never Assessed REASON FOR REFERRAL FUNCTIONAL STATUS PLAN OF CARE Activity Details Follow Up as scheduled Reason: VITAL SIGNS Height 69 in 2019-04-05 Weight 276 lbs 2019-04-05 BMI 40.75 kg/m2 2019-04-05 Blood pressure systolic 116 mm Hg 2019-04-05 Blood pressure diastolic 78 mm Hg 2019-04-05 MEDICATIONS Medication Instructions Dosage Frequency Start End Duration Status Date Date Celexa 40mg Oral qd 1 tab 24h Active clarithromycin 500 orally every 12 1 tab(s) 12h 10 day(s) Active mg hours One Daily orally once a 1 tab(s) 24h Active Multi-Essential day Multiple Vitamins Vitamin B complex oral QD 1 tab 24h Active Magnesium 2 tabs 24h Active ferrous sulfate orally once a 5 mL 24h 30 day(s) Active 220 mg/5 mL day Motrin oral PRN 1 tab Active Vitamin D 5000 oral qd 1 tab 24h Active clobetasol topical applied 1 eduardo 30 days Active 0.05% topically 2 times a day x 3-6 weeks when symptomatic, then weekly PROCEDURES Procedure Date Ordered Result Body Site URINE-NO MICRO Apr 05, 2019 RESULTS Name Result Date Reference Range Urine dip Glucose blood protein Nitrite Leuko Urobilinogen Keytone Bilirubin pH AFFIRM VAGINITIS PANEL 2019-04-05 Trichomonas vaginalis Negative [Negative] Gardnerella vaginalis POSITIVE [Negative] Ifeoma species Negative [Negative] REASON FOR VISIT Possible infection Insurance Providers [facility] Member Patient Patient Patient Patient Patient Subscriber Subscriber Subscriber Group Insurance Plan Plan Plan Plan ID Relationship Address Phone Name Date of ID Name Date of No Type Insurance Insurance Insurance Coverage to Subscriber Address Phone Name Dates [employer] [phone] [employer] Pat [id number] [place] Cross[place]Blue r[place]and Shield [id number] Shield [employer] [address] [employer] self Pat [id number] Blue [id number] 89 [place] 1 Cross[place] Shield [id number] Shield MEDICAL (GENERAL) HISTORY Type Description Date Medical History fibromyalgia Medical History anxiety Medical History preclampsia Medical History heart failure (post ) Medical History fibroids Medical History IBS Medical History PCOS Medical History Ahsan martinez cancer risk > 20% Medical History anemia Surgical History 2003 Surgical History Hysteroscopy, D&C 12/26/18 Surgical History oral surgery 2009 Surgical History TLH/BS/cysto 04/2019 Surgical History Hysterectomy 04/2019 Hospitalization History see above
--- OUTSIDE RECORDS SUMMARY | 2019-07-15 07:39 | XMS REPORT ---
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 Problem Leiomyoma of D25.9 Active 09209904 uterus, unspecified Problem Family history of Z80.3 Active 101892638 malignant neoplasm of breast Problem Fibromyalgia M79.7 Active 386872020 Problem Unspecified lump in N63.21 Active [id number] the left breast, upper outer quadrant Problem 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 88797482 chronicus Problem Dysuria R30.0 Active 52150011 Problem Noninflammatory N90.9 Active 752822615 disorder of vulva and perineum, unspecified Problem Acute vaginitis N76.0 Active 13775134 Problem Other abnormal and R92.8 Active 109265058 inconclusive findings on diagnostic imaging of breast Problem Disorder of the L98.9 Active 05302432 skin and subcutaneous tissue, unspecified Problem Endometriosis of N80.0 Active 69491413 uterus Problem Disorder of breast, N64.9 Active 79194752 unspecified Problem Secondary N94.5 Active 96585018 dysmenorrhea ALLERGIES No Information ENCOUNTERS Encounter Location Date Diagnosis [facility] [address] Feb, [place], [place] [id number] [facility] [address] Aug, [place], [place] [id number] [facility] [address] May, [place], [place] [id number] [facility] [address] May, [place] [id number] [facility] [address] May, [place] [id number] [facility] [address] May, [place] [id number] [facility] [address] May, [place] [id number] [facility] [address] May, [place] [id number] [facility] [address] May, [place] [id number] [facility] [address] May, Acute vaginitis N76.0 [place] [id number] [facility] [address] May, Dysuria R30.0 and [facility] simplex chronicus L28.0 [place] [id number] [facility] [address] May, [place], [place] [id number] [facility] [address] May, [place] [id number] [facility] [address] Apr, Excessive and frequent [facility] menstruation with regular [place], [place] [id number] cycle N92.0 ; Secondary dysmenorrhea N94.5 ; Leiomyoma of uterus, unspecified D25.9 ; Family history of malignant neoplasm of breast Z80.3 and Endometriosis of uterus N80.0 [facility] 103 Apr, [place] [id number] [facility] Apr, Excessive and frequent [facility] menstruation with regular [place], [place] [id number] cycle N92.0 [place] [address] Apr, Excessive and frequent [facility] [place] [id number] menstruation with regular cycle N92.0 ; Secondary dysmenorrhea N94.5 and Leiomyoma of uterus, unspecified D25.9 [facility] Apr, [place] [id number] [facility] Mar, Excessive and frequent [facility] menstruation with regular [place], [place] [id number] cycle N92.0 ; Polycystic ovarian syndrome E28.2 ; Leiomyoma of uterus, unspecified D25.9 ; Family history of malignant neoplasm of breast Z80.3 ; Lichen simplex chronicus L28.0 ; Endometriosis of uterus N80.0 and Acute vaginitis N76.0 [facility] Mar, [place] [id number] [facility] Mar, Acute vaginitis N76.0 [facility] Dysuria R30.0 [place] [id number] [facility] Feb, Encounter for gynecological [facility] examination (general) [place], [place] [id number] (routine) with abnormal findings Z01.411 ; Excessive and frequent menstruation with regular cycle N92.0 ; Lichen simplex chronicus L28.0 ; Polycystic ovarian syndrome E28.2 ; Leiomyoma of uterus, unspecified D25.9 ; Family history of malignant neoplasm of breast Z80.3 and Endometriosis of uterus N80.0 [facility] Feb, Leiomyoma of uterus, OBGYN [facility] unspecified D25.9 [place] [id number] [facility] [address] Feb, Disorder of breast, OBGYN [facility] unspecified N64.9 [place] [id number] [facility] [address] Feb, OBGYN [place], [place] [id number] [place] [facility] Jan, Lichen simplex chronicus [address] [place], L28.0 [place] Disorder [place] [id number] breast, unspecified N64.9 [facility] [address] Jan, OBGYN [place] [id number] [facility] [address] Dec, OBGYN [place] [id number] [facility] 103 Dec, [facility]cessive and frequent [facility] with regular [place] [id number] cycle N92.0 ; Polycystic ovarian syndrome E28.2 ; Leiomyoma of uterus, unspecified D25.9 ; Family history of malignant neoplasm of breast Z80.3 ; Lichen simplex chronicus L28.0 and Endometriosis of uterus N80.0 [place] [address] Dec, Excessive and frequent [facility] [place] [id number] menstruation with regular cycle N92.0 ; Leiomyoma of uterus, unspecified D25.9 and Polycystic ovarian syndrome E28.2 [facility] [address] Nov, OBGYN [place], [place] [id number] [facility] 103 Nov, Excessive and frequent [facility]ation with regular [place] [id number] cycle N92.0 [facility] 103 Nov, Excessive and frequent OBGYN [facility] menstruation with regular [place], [place] [id number] cycle N92.0 ; Polycystic ovarian syndrome E28.2 and Leiomyoma of uterus, unspecified D25.9 [facility] [address] Nov, OBGYN [place] [id number] [facility] [address] Oct, OBGYN [place] [id number] [facility] 103 Oct, Excessive and frequent [facility] menstruation with regular [place] [id number] cycle N92.0 ; Polycystic ovarian syndrome E28.2 ; Leiomyoma of uterus, unspecified D25.9 ; Family history of malignant neoplasm of breast Z80.3 and Lichen simplex chronicus L28.0 [facility] 103 Oct, Disorder of the skin and [facility] subcutaneous tissue, [place] [id number] unspecified L98.9 [facility] [address] September, O[place] [id number] [facility] [address] September, OBGYN [place] [id number] [facility] 103 September, Excessive and frequent OBGYN [facility] menstruation with regular [place], [place] [id number] cycle N92.0 [facility] Aug, Family history of malignant [facility] neoplasm of breast Z80.3 [place], [place] [id number] and Unspecified lump in the left breast, upper outer quadrant N63.21 [facility] [address] Feb, OBG[place] [id number] [facility] Feb, Lichen simplex chronicus [facility] L28.0 ; Family history of [place], [place] [id number] malignant neoplasm of breast Z80.3 and Unspecified lump in the left breast, upper outer quadrant N63.21 [facility] Feb, Noninflammatory disorder of [facility] vulva and perineum, [place] [id number] unspecified N90.9 [facility] Feb, Other abnormal and [facility] inconclusive findings on [place] [id number] diagnostic imaging of breast R92.8 [facility] 103 Feb, [place] [id number] [facility] Feb, Noninflammatory disorder of [facility] vulva and perineum, [place] [id number] unspecified N90.9 [facility] 103 Jan, [place] [id number] [facility] 103 Jan, Encounter for gynecological [facility] examination (general) [place], [place] [id number] (routine) with abnormal findings Z01.411 ; Other [...] vulva and perineum, unspecified N90.9 [facility] 103 Jan, Leiomyoma of uterus, [facility] unspecified D25.9 and [place] [id number] Polycystic ovarian syndrome E28.2 [facility] 103 Aug, Other abnormal and [facility] inconclusive findings on [place], [place] [id number] diagnostic imaging of breast R92.8 [facility] 103 Aug, Leiomyoma of uterus, [facility] unspecified D25.9 ; Abscess [place], [place] [id number] of vulva N76.4 and Family history of malignant neoplasm of breast Z80.3 [facility] 103 Aug, Polycystic ovarian syndrome [facility] E28.2 and Leiomyoma of [place] [id number] uterus, unspecified D25.9 [facility] [address] 29 Jul, 2017 Abscess of vulva N76.4 [place] [id number] [facility] [address] 22 Jul, 2017 Abscess of vulva N76.4 [place] [id number] [facility] [address] 19 Jul, 2017 [place] [id number] [facility] Jul, [place] [id number] [facility] 103 Jun, Family history of malignant [facility] neoplasm of breast Z80.3 [place], [place] [id number] and Other abnormal and inconclusive findings on diagnostic imaging of breast R92.8 [facility] [address] Jun, [place] [id number] [facility] 103 Mar, Polycystic ovarian syndrome [facility] E28.2 ; Family history [place] [id number] malignant neoplasm of breast Z80.3 and Family history of malignant neoplasm of digestive organs Z80.0 [facility] [address] Mar, [facility]cystic ovarian syndrome [facility] E28.2 [place], [place] [id number] [facility] [address] Feb, [place] [id number] [facility] Jan, [place] [id number] [facility] [address] Jan, Encounter for gynecological [facility] examination (general) [place] [id number] (routine) with abnormal findings Z01.411 ; Polycystic ovarian syndrome E28.2 ; Female infertility, unspecified N97.9 ; Candidiasis of skin and nail B37.2 ; Family history of malignant neoplasm of breast Z80.3 and Body mass index (BMI) 40.0-44.9, adult Z68.41 [facility] [address] Dec, [place] [id number] [facility] Nov, [place] [id number] [facility] Oct, [place] [id number] [facility] Aug, Encounter for gynecological [facility] examination (general) [place], [place] [id number] (routine) with abnormal findings Z01.411 ; Polycystic ovarian syndrome E28.2 ; Nonscarring hair loss, unspecified L65.9 and Body mass index (BMI) 34.0-34.9, adult Z68.34 [facility] Jul, [place] [id number] [facility] Jun, Polycystic ovarian syndrome [facility] E28.2 [place] [id number] [facility] Mar, [place], [place] [id number] [facility] [address] Feb, Other specified conditions [facility] associated with female [place], [place] [id number] genital organs and menstrual cycle N94.89 ; Excessive and frequent menstruation with regular cycle N92.0 ; 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 ; Polycystic ovarian syndrome E28.2 and Body mass index (BMI) 39.0-39.9, adult Z68.39 [facility] [address] Nov, PELVIC PAIN 625.9 ; [facility] Menometrorrhagia 626.2 and [place], [place] [id number] Hyperinsulinism 251.1 [facility] [address] Nov, O[place], [place] [id number] [facility] 103 Oct, Menometrorrhagia 626.2 [place] [id number] [facility] 103 Oct, Menometrorrhagia 626.2 [place] [id number] [facility] 103 Oct, PELVIC PAIN 625.9 and OBGYN [facility] Menometrorrhagia 626.2 [place], [place] [id number] [facility] 103 Oct, O[place] [id number] [facility] 103 Oct, Menometrorrhagia 626.2 O[place]YN [place], [place] [id number] [facility] 103 Oct, PELVIC PAIN 625.9 and OBGYN [facility] Menometrorrhagia 626.2 [place], [place] [id number] [facility] 103 Jun, [place] [id number] [facility] 103 Jun, O[place] [id number] [facility] 103 Jun, [place], [place] [id number] [facility] 103 Jun, O[place] [id number] [facility] 103 September, [place] [id number] [facility] 103 Aug, FAMILY HX-BREAST MALIG OBGYN [facility] V16.3 [place], [place] [id number] [facility] [address] Aug, 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 OBGYN [facility] V72.31 and Yeast infection [place], [place] [id number] 112.9 IMMUNIZATIONS No Known Immunizations SOCIAL HISTORY Never Assessed REASON FOR REFERRAL FUNCTIONAL STATUS PLAN OF CARE VITAL SIGNS MEDICATIONS Medication Instructions Dosage Frequency Start End Date Duration Status Date Magnesium 2 tabs 24h Active One Daily orally once a day 1 tab(s) 24h Active Multi-Essential Multiple Vitamins ibuprofen 800 orally q 8 hrs 1 tab(s) 08 Dec, Active mg PRN 2019 Motrin oral PRN 1 tab Active Celexa 40mg Oral qd 1 tab 24h Active clobetasol applied topically 1 eduardo 30 days Active topical 0.05% 2 times a day x 3-6 weeks when symptomatic, then weekly Percocet 5/325 orally every -4 6 1 tab(s) 16 Dec, Active 325 mg-5 mg hours PRN 2019 ferrous sulfate orally once a day 5 mL 24h 30 day(s) Active 220 mg/5 mL Vitamin D 5000 oral qd 1 tab 24h Active Vitamin B oral QD 1 tab 24h Active complex PROCEDURES No Known procedures RESULTS No Results REASON FOR VISIT Pain medication refill Insurance Providers [facility] Health Member Patient Patient Patient Patient Patient Subscriber Subscriber Subscriber Group Insurance Plan Plan Plan Plan ID Relationship Address Phone Name Date of ID Name Date of No Type Insurance Insurance Insurance Coverage to Subscriber Address Phone Name Dates [employer] [phone] [employer] Pat [id number] [address] [place] Cross/Blue rtrand Shield [id number] Shield [place] [phone] [employer] self Pat [id number] Blue [id number] 89 [place] Cross[place] Cross/Blue r[place]and Shield [id number] Shield MEDICAL (GENERAL) HISTORY Type Description Date [...]
--- OUTSIDE RECORDS SUMMARY | 2019-07-15 07:39 | XMS REPORT ---
:1980 Author Organization [facility] Address [address] [place] [address] Care Team Providers Name Role Phone Radha Andrade Unavailable Unavailable PROBLEMS Type Condition ICD9-CM [id number] Onset Condition SNOMED Code Code Code Dates Status Problem Polycystic ovarian E28.2 Active 01057218 syndrome Problem Excessive and N92.0 Active 297042510 frequent menstruation with regular cycle Problem Body mass index Z68.41 Active 018927193 (BMI) 40.0-44.9, adult Problem Other specified E16.8 Active 213785797 disorders of pancreatic internal secretion Problem Leiomyoma of D25.9 Active 85307996 uterus, unspecified Problem Family history of Z80.3 Active 576330215 malignant neoplasm of breast Problem Fibromyalgia M79.7 Active 278080848 Problem Unspecified lump in N63.21 Active [id number] the left breast, upper outer quadrant Problem 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 53704793 chronicus Problem Dysuria R30.0 Active 01281318 Problem Noninflammatory N90.9 Active 942907377 disorder of vulva and perineum, unspecified Problem Acute vaginitis N76.0 Active 75544693 Problem Other abnormal and R92.8 Active 666971933 inconclusive findings on diagnostic imaging of breast Problem Disorder of the L98.9 Active 61890737 skin and subcutaneous tissue, unspecified Problem Endometriosis of N80.0 Active 52545896 uterus Problem Disorder of breast, N64.9 Active 42591653 unspecified Problem Secondary N94.5 Active 35273826 dysmenorrhea ALLERGIES No Information ENCOUNTERS Encounter Location Date Diagnosis [facility] [address] Feb, [place], [place] [id number] [facility] [address] Aug, [place], [place] [id number] [facility] [address] May, [place], [place] [id number] [facility] [address] May, [place] [id number] [facility] [address] May, [place] [id number] [facility] [address] May, [place] [id number] [facility] [address] May, [place] [id number] [facility] 103 May, [place], [place] [id number] [facility] [address] May, [place], [place] [id number] [facility] 103 May, Acute vaginitis N76.0 [place], [place] [id number] [facility] [address] May, Dysuria R30.0 and Lichen [facility] simplex chronicus L28.0 [place], [place] [id number] [facility] [address] May, [place], [place] [id number] [facility] [address] May, [place], [place] [id number] [facility] 103 Apr, Excessive and frequent [facility] menstruation with regular [place], [place] [id number] cycle N92.0 ; Secondary dysmenorrhea N94.5 ; Leiomyoma of uterus, unspecified D25.9 ; Family history of malignant neoplasm of breast Z80.3 and Endometriosis of uterus N80.0 [facility] 103 Apr, [place] [id number] [facility] Apr, Excessive and frequent [facility] menstruation with regular [place], [place] [id number] cycle N92.0 [place] [address] Apr, Excessive and frequent [facility] [place] [place] [id number] menstruation with regular cycle N92.0 ; Secondary dysmenorrhea N94.5 and Leiomyoma of uterus, unspecified D25.9 [facility] Apr, [place] [id number] [facility] Mar, Excessive and frequent [facility] menstruation with regular [place], [place] [id number] cycle N92.0 ; Polycystic ovarian syndrome E28.2 ; Leiomyoma of uterus, unspecified D25.9 ; Family history of malignant neoplasm of breast Z80.3 ; Lichen simplex chronicus L28.0 ; Endometriosis of uterus N80.0 and Acute vaginitis N76.0 [facility] Mar, [place] [id number] [facility] Mar, Acute vaginitis N76.0 and [facility] Dysuria R30.0 [place], [place] [id number] [facility] Feb, Encounter for gynecological [facility] examination (general) [place], [place] [id number] (routine) with abnormal findings Z01.411 ; Excessive and frequent menstruation with regular cycle N92.0 ; Lichen simplex chronicus L28.0 ; Polycystic ovarian syndrome E28.2 ; Leiomyoma of uterus, unspecified D25.9 ; Family history of malignant neoplasm of breast Z80.3 and Endometriosis of uterus N80.0 [facility] Feb, Leiomyoma of uterus, OBGYN [facility] unspecified D25.9 [place], [place] [id number] [facility] 103 Feb, Disorder of breast, OBGYN [facility] unspecified N64.9 [place], [place] [id number] [facility] [address] Feb, O[place] [id number] [place] [facility] Jan, Lichen simplex chronicus [address] [place], L28.0 [place] [id number] breast, unspecified N64.9 [facility] [address] Jan, [place] [id number] [facility] 103 Dec, [place] [id number] [facility] 103 Dec, Excessive and frequent [facility] menstruation with regular [place], [place] [id number] cycle N92.0 ; Polycystic ovarian syndrome E28.2 ; Leiomyoma of uterus, unspecified D25.9 ; Family history of malignant neoplasm of breast Z80.3 ; Lichen simplex chronicus L28.0 and Endometriosis of uterus N80.0 [place] [address] Dec, Excessive and frequent [facility] [place] [id number] menstruation with regular cycle N92.0 ; Leiomyoma of uterus, unspecified D25.9 and Polycystic ovarian syndrome E28.2 [facility] 103 Nov, O[place] [id number] [facility] 103 Nov, Excessive and frequent [facility] menstruation with regular [place], [place] [id number] cycle N92.0 [facility] 103 Nov, Excessive and frequent OBGYN [facility] menstruation with regular [place], [place] [id number] cycle N92.0 ; Polycystic ovarian syndrome E28.2 and Leiomyoma of uterus, unspecified D25.9 [facility] 103 Nov, O[place] [id number] [facility] 103 Oct, [place] [id number] [facility] 103 Oct, Excessive and frequent [facility] menstruation with regular [place], [place] [id number] cycle N92.0 ; Polycystic ovarian syndrome E28.2 ; Leiomyoma of uterus, unspecified D25.9 ; Family history of malignant neoplasm of breast Z80.3 and Lichen simplex chronicus L28.0 [facility] 103 Oct, Disorder of the skin and [facility] subcutaneous tissue, [place], [place] [id number] unspecified L98.9 [facility] 103 September, [place] [id number] [facility] 103 September, [place] [id number] [facility] 103 September, Excessive and frequent OBGYN [facility] menstruation with regular [place], [place] [address] cycle N92.0 [facility] 103 Aug, Family history of malignant [facility] neoplasm of breast Z80.3 [place], [place] [id number] and Unspecified lump in the left breast, upper outer quadrant N63.21 [facility] 103 Feb, [place] [id number] [facility] 103 Feb, Lichen simplex chronicus [facility] L28.0 ; Family history of [place], [place] [id number] malignant neoplasm of breast Z80.3 and Unspecified lump in the left breast, upper outer quadrant N63.21 [facility] 103 Feb, Noninflammatory disorder of [facility] vulva and perineum, [place], [place] [id number] unspecified N90.9 [facility] Feb, Other abnormal and [facility] inconclusive findings on [place], [place] [id number] diagnostic imaging of breast R92.8 [facility] 103 Feb, [place] [id number] [facility] Feb, Noninflammatory disorder of [facility] vulva and perineum, [place], [place] [id number] unspecified N90.9 [facility] 103 Jan, [place] [id number] [facility] 103 Jan, Encounter for gynecological [facility] examination (general) [place], [place] [id number] (routine) with abnormal findings Z01.411 ; Other [...] disorder of vulva and perineum, unspecified N90.9 [facility] 103 Jan, Leiomyoma of uterus, [facility] unspecified D25.9 and [place], [place] [id number] Polycystic ovarian syndrome E28.2 [facility] 103 Aug, Other abnormal and [facility] inconclusive findings on [place], [place] [id number] diagnostic imaging of breast R92.8 [facility] 103 Aug, Leiomyoma of uterus, [facility] unspecified D25.9 ; Abscess [place], [place] [id number] of vulva N76.4 and Family history of malignant neoplasm of breast Z80.3 [facility] 103 Aug, Polycystic ovarian syndrome [facility] E28.2 and Leiomyoma of [place], [place] [id number] uterus, unspecified D25.9 [facility] 103 29 Jul, 2017 Abscess of vulva N76.4 [place] [id number] [facility] [address] 22 Jul, 2017 Abscess of vulva N76.4 [place] [id number] [facility] 103 19 Jul, 2017 [place] [id number] [facility] 103 Jul, [place] [id number] [facility] 103 Jun, Family history of malignant [facility] neoplasm of breast Z80.3 [place], [place] [id number] and Other abnormal and inconclusive findings on diagnostic imaging of breast R92.8 [facility] [address] Jun, [place] [id number] [facility] 103 Mar, Polycystic ovarian syndrome [facility] E28.2 ; Family history of [place], [place] [id number] malignant neoplasm of breast Z80.3 and Family history of malignant neoplasm of digestive organs Z80.0 [facility] 103 Mar, Polycystic ovarian syndrome [facility] E28.2 [place], [place] [id number] [facility] [address] Feb, [place] [id number] [facility] [address] Jan, [place] [id number] [facility] 103 Jan, Encounter for gynecological [facility] examination (general) [place], [place] [id number] (routine) with abnormal findings Z01.411 ; Polycystic ovarian syndrome E28.2 ; Female infertility, unspecified N97.9 ; Candidiasis of skin and nail B37.2 ; Family history of malignant neoplasm of breast Z80.3 and Body mass index (BMI) 40.0-44.9, adult Z68.41 [facility] Dec, [place] [id number] [facility] Nov, [place] [id number] [facility] Oct, [place] [id number] [facility] Aug, Encounter for gynecological [facility] examination (general) [place], [place] [id number] (routine) with abnormal findings Z01.411 ; Polycystic ovarian syndrome E28.2 ; Nonscarring hair loss, unspecified L65.9 and Body mass index (BMI) 34.0-34.9, adult Z68.34 [facility] Jul, [place] [id number] [facility] Jun, Polycystic ovarian syndrome [facility] E28.2 [place], [place] [id number] [facility] Mar, [place], [place] [id number] 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 Nov, [place] [id number] [facility] 103 Oct, Menometrorrhagia 626.2 [place] [id number] [facility] 103 Oct, Menometrorrhagia 626.2 [place] [id number] [facility] 103 Oct, PELVIC PAIN 625.9 and OBGYN [facility] Menometrorrhagia 626.2 [place], [place] [id number] [facility] 103 Oct, [place], [place] [id number] [facility] 103 Oct, Menometrorrhagia 626.2 [place] [id number] [facility] 103 Oct, PELVIC PAIN 625.9 and OBGYN [facility] Menometrorrhagia 626.2 [place], [place] [id number] [facility] 103 Jun, [place], [place] [id number] [facility] 103 Jun, [place] [id number] [facility] 103 Jun, [place] [id number] [facility] 103 Jun, [place] [id number] [facility] 103 September, [place] [id number] [facility] 103 Aug, FAMILY HX-BREAST MALIG OBGYN [facility] V16.3 [place] [id number] [facility] 103 Aug, ROUTINE POSTIE EXAMINATION OBGYN [facility] V72.31 and Yeast infection [place], [place] [id number] 112.9 IMMUNIZATIONS No Known Immunizations SOCIAL HISTORY Never Assessed REASON FOR REFERRAL FUNCTIONAL STATUS PLAN OF CARE VITAL SIGNS MEDICATIONS Unknown Medications PROCEDURES No Known procedures RESULTS No Results REASON FOR VISIT Re:RE:post hospitalization concerns Insurance Providers [employer] Member Patient Patient Patient Patient Patient Subscriber Subscriber Subscriber Group Insurance Plan Plan Plan Plan ID Relationship Address Phone Name Date of ID Name Date of No Type Insurance Insurance Insurance Coverage to Subscriber Address Phone Name Dates [place] [address] [employer] Pat [id number] Blue [id number] 89 [place] Cross/Blue rtrand Shield [id number] Shield [place] [address] [employer] self Pat [id number] Blue [id number] 89 Blue [place] 1 Cross[place] Cross/[place] Shield [id number] Shield MEDICAL (GENERAL) HISTORY Type Description Date [...]
--- OUTSIDE RECORDS SUMMARY | 2019-07-15 07:39 | XMS REPORT ---
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 Problem Leiomyoma of D25.9 Active 48439528 uterus, unspecified Problem Family history of Z80.3 Active 749806702 malignant neoplasm of breast Problem Fibromyalgia M79.7 Active 337339066 Problem Unspecified lump in N63.21 Active [id number] the left breast, upper outer quadrant Problem 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 41574854 chronicus Problem Dysuria R30.0 Active 79818143 Problem Noninflammatory N90.9 Active 542858539 disorder of vulva and perineum, unspecified Problem Acute vaginitis N76.0 Active 88625866 Problem Other abnormal and R92.8 Active 802433451 inconclusive findings on diagnostic imaging of breast Problem Disorder of the L98.9 Active 03722508 skin and subcutaneous tissue, unspecified Problem Endometriosis of N80.0 Active 15107653 uterus Problem Disorder of breast, N64.9 Active 04133057 unspecified Problem Secondary N94.5 Active 14005815 dysmenorrhea ALLERGIES No Information ENCOUNTERS Encounter Location Date Diagnosis [facility] [address], [place], [place] [id number] [facility] [address] Aug, [place], [place] [id number] [facility] [address] May, [place], [place] [id number] [facility] [address] May, [place], [place] [id number] [facility] [address] May, [place] [id number] [facility] [address] May, [place] [id number] [facility] [address] May, [place], [place] [id number] [facility] [address] May, [place], [place] [id number] [facility] [address] May, Acute vaginitis N76.0 [place], [place] [id number] [facility] [address] May, Dysuria R30.0 and Lichen [facility] simplex chronicus L28.0 [place] [id number] [facility] [address] May, [place], [place] [id number] [facility] [address] May, [place], [place] [id number] [facility] [address] Apr, Excessive and frequent [facility] menstruation with regular [place] [id number] cycle N92.0 ; Secondary dysmenorrhea N94.5 ; Leiomyoma of uterus, unspecified D25.9 ; Family history of malignant neoplasm of breast Z80.3 and Endometriosis of uterus N80.0 [facility] [address] Apr, [place] [id number] [facility] Apr, Excessive and frequent [facility] menstruation with regular [place] [id number] cycle N92.0 [facility] [address] Apr, Excessive and frequent [facility] [place] [id number] menstruation with regular cycle N92.0 ; Secondary dysmenorrhea N94.5 and Leiomyoma of uterus, unspecified D25.9 [facility] Apr, [place] [id number] [facility] Mar, Excessive and frequent [facility] menstruation with regular [place], [place] [id number] cycle N92.0 ; Polycystic ovarian syndrome E28.2 ; Leiomyoma of uterus, unspecified D25.9 ; Family history of malignant neoplasm of breast Z80.3 ; Lichen simplex chronicus L28.0 ; Endometriosis of uterus N80.0 and Acute vaginitis N76.0 [facility] [address] Mar, [place] [id number] [facility] Mar, Acute vaginitis N76.[address] [facility] Dysuria R30.0 [place], [place] [id number] [facility] Feb, Encounter for gynecological [facility] examination (general) [place], [place] [id number] (routine) with abnormal findings Z01.411 ; Excessive and frequent menstruation with regular cycle N92.0 ; Lichen simplex chronicus L28.0 ; Polycystic ovarian syndrome E28.2 ; Leiomyoma of uterus, unspecified D25.9 ; Family history of malignant neoplasm of breast Z80.3 and Endometriosis of uterus N80.0 [facility] Feb, Leiomyoma of uterus, [facility] unspecified D25.9 [place] [id number] [facility] [address] Feb, Disorder of breast, OBGYN [facility] unspecified N64.9 [place] [id number] [facility] [address] Feb, [place] [id number] [facility] [address] [facility] Jan, Lichen simplex chronicus [address] [place], L28.0 [place] Disorder [place] [id number] breast, unspecified N64.9 [facility] Jan, [place] [id number] [facility] [address] Dec, [place] [id number] [facility] 103 Dec, [facility] and [facility] with regular [place] [id number] cycle N92.0 ; Polycystic ovarian syndrome E28.2 ; Leiomyoma of uterus, unspecified D25.9 ; Family history of malignant neoplasm of breast Z80.3 ; Lichen simplex chronicus L28.0 and Endometriosis of uterus N80.[address] [place] [address] Dec, Excessive and frequent [facility] [place] [id number] menstruation with regular cycle N92.0 ; Leiomyoma of uterus, unspecified D25.9 and Polycystic ovarian syndrome E28.2 [facility] Nov, [place] [id number] [facility] Nov, Excessive and frequent [facility] menstruation with regular [place] [id number] cycle N92.0 [facility] 103 Nov, Excessive and frequent O[facility] menstruation with regular [place] [id number] cycle N92.0 ; Polycystic ovarian syndrome E28.2 and Leiomyoma of uterus, unspecified D25.9 [facility] [address] Nov, [place] [id number] [facility] [address] Oct, [place] [id number] [facility] 103 Oct, [facility]cessive and frequent [facility]ation with regular [place] [id number] cycle N92.0 ; Polycystic ovarian syndrome E28.2 ; Leiomyoma of uterus, unspecified D25.9 ; Family history of malignant neoplasm of breast Z80.3 and Lichen simplex chronicus L28.0 [facility] 103 Oct, Disorder of the skin and [facility] subcutaneous tissue, [place] [id number] unspecified L98.9 [facility] [address] September, [place] [id number] [facility] [address] September, [place] [id number] [facility] [address] September, Excessive and frequent [facility]ation with regular [place] [id number] cycle N92.0 [facility] [address] Aug, Family history of malignant [facility] neoplasm of breast Z80.3 [place], [place] [id number] and Unspecified lump in the left breast, upper outer quadrant N63.21 [facility] [address] Feb, [place] [id number] [facility] [address] Feb, Lichen simplex chronicus [facility] L28.0 ; Family history [place] [id number] malignant neoplasm of breast Z80.3 and Unspecified lump in the left breast, upper outer quadrant N63.21 [facility] [address] Feb, Noninflammatory disorder of [facility] vulva and perineum, [place] [id number] unspecified N90.9 [facility] [address] Feb, Other abnormal [facility] inconclusive findings on [place] [id number] diagnostic imaging of breast R92.[address] [facility] [place] [facility] Feb, [place] [id number] [facility] [facility] Feb, Noninflammatory disorder of [facility] vulva and perineum, [place] [id number] unspecified N90.[address] [facility] [facility] Jan, [place] [id number] [facility] [facility] Jan, Encounter for gynecological [facility] examination (general) [place], [place] [id number] (routine) with abnormal findings Z01.411 ; Other [...] 103 Jan, Leiomyoma of uterus, [facility] unspecified D25.9 and [place] [id number] Polycystic ovarian syndrome E28.[address] [facility] [place] [facility] 103 Aug, Other abnormal and [facility] inconclusive findings on [place] [id number] diagnostic imaging of breast R92.[address] [facility] [place] [facility] 103 Aug, Leiomyoma of uterus, [facility] unspecified D25.9 ; Abscess [place] [id number] of vulva N76.4 and Family history of malignant neoplasm of breast Z80.[address] [facility] [place] [facility] Aug, Polycystic ovarian syndrome [facility] E28.2 and Leiomyoma of [place] [id number] uterus, unspecified D25.9 [facility] [address] 29 Jul, 2017 Abscess of vulva N76.4 [place] [id number] [facility] [address] Jul, Abscess of vulva N76.4 [place] [id number] [facility] [address] 19 Jul, 2017 [place] [id number] [facility] Jul, [place] [id number] [facility] Jun, Family history of malignant [facility] neoplasm of breast Z80.3 [place] [id number] and Other abnormal and inconclusive findings on diagnostic imaging of breast R92.8 [facility] Jun, [place] [id number] [facility] [address] Mar, Polycystic ovarian syndrome [facility] E28.2 ; Family history [place] [id number] malignant neoplasm of breast Z80.3 and Family history of malignant neoplasm of digestive organs Z80.0 [facility] [address] Mar, Polycystic ovarian syndrome [facility] E28.2 [place] [id number] [facility] [address] Feb, [place] [id number] [facility] Jan, [place] [id number] [facility] [address] Jan, Encounter for gynecological [facility] examination (general) [place], [place] [id number] (routine) with abnormal findings Z01.411 ; Polycystic ovarian syndrome E28.2 ; Female infertility, unspecified N97.9 ; Candidiasis of skin and nail B37.2 ; Family history of malignant neoplasm of breast Z80.3 and Body mass index (BMI) 40.0-44.9, adult Z68.41 [facility] [address] Dec, [place] [id number] [facility] [address] Nov, [place] [id number] [facility] 103 Oct, [place] [id number] [facility] 103 Aug, [facility] [place] [id number] (routine) with abnormal findings Z01.411 ; Polycystic ovarian syndrome E28.2 ; Nonscarring hair loss, unspecified L65.9 and Body mass index (BMI) 34.0-34.9, adult Z68.34 [facility] [address] Jul, [place] [id number] [facility] 103 Jun, [facility] E28.2 [place] [id number] [facility] Mar, [place] [id number] [facility] Feb, Other specified conditions 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 Menometrorrhagia 626.2 and [place] [id number] Hyperinsulinism 251.1 [facility] [address] Nov, [place] [id number] [facility] 103 Oct, Menometrorrhagia 626.2 [place] [id number] [facility] 103 Oct, Menometrorrhagia 626.2 [place] [id number] [facility] 103 Oct, PELVIC PAIN 625.9 and OBGYN [facility] Menometrorrhagia 626.2 [place], [place] [id number] [facility] 103 Oct, [place] [id number] [facility] 103 Oct, Menometrorrhagia 626.2 [place] [id number] [facility] 103 Oct, PELVIC PAIN 625.9 and OBGYN [facility] Menometrorrhagia 626.2 [place], [place] [id number] [facility] [address] Jun, [place] [id number] [facility] [address] Jun, [place] [id number] [facility] [address] Jun, [place] [id number] [facility] [address] Jun, [place] [id number] [facility] [address] September, [place] [id number] [facility] 103 Aug, FAM[facility] H[facility]-BREAST MAL[facility] V16.3 [place] [id number] [facility] [address] Aug, 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 [facility] V72.31 and Yeast infection [place], [place] [id number] 112.9 IMMUNIZATIONS No Known Immunizations SOCIAL HISTORY Never Assessed REASON FOR REFERRAL FUNCTIONAL STATUS PLAN OF CARE VITAL SIGNS MEDICATIONS Medication Instructions Dosage Frequency Start End Date Duration Status Date Magnesium 2 tabs 24h Active Vitamin D 5000 oral qd 1 tab 24h Active ferrous sulfate orally once a day 5 mL 24h 30 day(s) Active 220 mg/5 mL Vitamin B oral QD 1 tab 24h Active complex Celexa 40mg Oral qd 1 tab 24h Active One Daily orally once a day 1 tab(s) 24h Active Multi-Essential Multiple Vitamins Motrin oral PRN 1 tab Active ibuprofen 800 orally q 8 hrs 1 tab(s) Apr, Active mg PRN 2018 clobetasol applied topically 1 eduardo 30 days Active topical 0.05% 2 times a day x 3-6 weeks when symptomatic, then weekly Percocet 5/325 orally every 4- 6 1 tab(s) 08 Apr, Active 325 mg-5 mg hours PRN 2018 PROCEDURES Procedure Date Ordered Result Body Site CYSTOSCOPY May 01, 2019 [facility] W/T/O 250 G OR LESS May 01, 2019 RESULTS No Results REASON FOR VISIT [facility]/BS/cysto Insurance Providers [facility] Patient Patient Patient Patient Patient Subscriber Subscriber Subscriber Group Insurance Plan Plan Plan Plan ID Relationship Address Phone Name Date of ID Name Date of No Type Insurance Insurance Insurance Coverage to Subscriber Address Phone Name Dates [employer] [phone] [employer] [place] [id number] Blue [id number] [address] [place] Cross/Blue r[place]and Shield [id number] Shield [place] [phone] [employer] self Pat [id number] Blue [id number] 89 [place] 1 Cross[place] Shield [id number] Shield MEDICAL (GENERAL) HISTORY Type Description Date [...]
--- OUTSIDE RECORDS SUMMARY | 2019-07-15 07:39 | XMS REPORT ---
:1980 Author Organization [facility] Address [address] 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 Problem Leiomyoma of D25.9 Active 96627438 uterus, unspecified Problem Family history of Z80.3 Active 101797560 malignant neoplasm of breast Problem Fibromyalgia M79.7 Active 896279662 Problem Unspecified lump in N63.21 Active [id number] the left breast, upper outer quadrant Problem 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 94132183 chronicus Problem Dysuria R30.0 Active 46418939 Problem Noninflammatory N90.9 Active 672081993 disorder of vulva and perineum, unspecified Problem Acute vaginitis N76.0 Active 18442241 Problem Other abnormal and R92.8 Active 497744925 inconclusive findings on diagnostic imaging of breast Problem Disorder of the L98.9 Active 06478815 skin and subcutaneous tissue, unspecified Problem Endometriosis of N80.0 Active 88818830 uterus Problem Disorder of breast, N64.9 Active 96827590 unspecified Problem Secondary N94.5 Active 70433843 dysmenorrhea ALLERGIES Substance Reaction Event Type Date Status penicillin hives Drug Allergy Feb, Active ENCOUNTERS Encounter Location Date Diagnosis [facility] [address] Feb, [place], [place] [id number] [facility] [address] Aug, [place], [place] [id number] [facility] [address] May, [place], [place] [id number] [facility] [address] May, [place] [id number] [facility] [address] May, [place] [id number] [facility] [address] May, [place] [id number] [facility] [address] May, [place], [place] [id number] [facility] [address] May, [place], [place] [id number] [facility] [address] May, Acute vaginitis N76.0 [place] [id number] [facility] [address] May, Dysuria R30.0 and Lichen [facility] simplex chronicus L28.0 [place] [id number] [facility] [address] May, [place], [place] [id number] [facility] [address] May, [place], [place] [id number] [facility] [address] Apr, Excessive and frequent [facility] menstruation with regular [place], [place] [id number] cycle N92.0 ; Secondary dysmenorrhea N94.5 ; Leiomyoma of uterus, unspecified D25.9 ; Family history of malignant neoplasm of breast Z80.3 and Endometriosis of uterus N80.0 [facility] [address] Apr, [place] [id number] [facility] Apr, Excessive and frequent [facility] menstruation with regular [place] [id number] cycle N92.0 [facility] [address] Apr, Excessive and frequent [facility] [place] [id number] menstruation with regular cycle N92.0 ; Secondary dysmenorrhea N94.5 and Leiomyoma of uterus, unspecified D25.[address] [facility] Apr, [place] [id number] [facility] Mar, Excessive and frequent [facility] menstruation with regular [place], [place] [id number] cycle N92.0 ; Polycystic ovarian syndrome E28.2 ; Leiomyoma of uterus, unspecified D25.9 ; Family history of malignant neoplasm of breast Z80.3 ; Lichen simplex chronicus L28.0 ; Endometriosis of uterus N80.0 and Acute vaginitis N76.[address] [facility] Mar, [place] [id number] [facility] Mar, Acute vaginitis N76.0 and [facility] Dysuria R30.0 [place] [id number] [facility] Feb, Encounter for gynecological [facility] examination (general) [place], [place] [id number] (routine) with abnormal findings Z01.411 ; Excessive and frequent menstruation with regular cycle N92.0 ; Lichen simplex chronicus L28.0 ; Polycystic ovarian syndrome E28.2 ; Leiomyoma of uterus, unspecified D25.9 ; Family history of malignant neoplasm of breast Z80.3 and Endometriosis of uterus N80.0 [facility] [address] Feb, Leiomyoma of uterus, [facility] unspecified D25.9 [place] [id number] [facility] [address] Feb, Disorder of breast, OBGYN [facility] unspecified N64.9 [place] [id number] [facility] [address] Feb, OBG[place] [id number] [facility] [address] [facility] Jan, Lichen simplex chronicus [address] [place], L28.0 and Disorder [place] [id number] breast, unspecified N64.9 [facility] Jan, [place] [id number] [facility] [address] Dec, [place], [place] [id number] [facility] 103 Dec, Excessive and frequent OBG[facility] menstruation with regular [place], [place] [id number] cycle N92.0 ; Polycystic ovarian syndrome E28.2 ; Leiomyoma of uterus, unspecified D25.9 ; Family history of malignant neoplasm of breast Z80.3 ; Lichen simplex chronicus L28.0 and Endometriosis of uterus N80.[address] [place] [address] Dec, Excessive and frequent [facility] [place] [id number] menstruation with regular cycle N92.0 ; Leiomyoma of uterus, unspecified D25.9 and Polycystic ovarian syndrome E28.2 [facility] Nov, O[place] [id number] [facility] [address] Nov, Excessive and frequent OBG[facility] menstruation with regular [place] [id number] cycle N92.0 [facility] [address] Nov, Excessive and frequent OBGYN [facility] menstruation with regular [place], [place] [id number] cycle N92.0 ; Polycystic ovarian syndrome E28.2 and Leiomyoma of uterus, unspecified D25.9 [facility] [address] Nov, O[place] [id number] [facility] [address] Oct, [place] [id number] [facility] [address] Oct, Excessive and frequent OBGYN [facility] menstruation with regular [place] [id number] cycle N92.0 ; Polycystic ovarian syndrome E28.2 ; Leiomyoma of uterus, unspecified D25.9 ; Family history of malignant neoplasm of breast Z80.3 and Lichen simplex chronicus L28.0 [facility] [address] Oct, Disorder of the [facility], [place] [id number] unspecified L98.9 [facility] [address] September, [place] [id number] [facility] [address] September, [place] [id number] [facility] [address] September, Excessive and frequent OBGYN [facility] menstruation with regular [place] [id number] cycle N92.0 [facility] [address] Aug, Family history of malignant [facility] neoplasm of breast Z80.3 [place], [place] [id number] and Unspecified lump in the left breast, upper outer quadrant N63.21 [facility] [address] Feb, [place] [id number] [facility] Feb, Lichen simplex chronicus O[facility] L28.0 ; Family history [place] [id number] malignant neoplasm of breast Z80.3 and Unspecified lump in the left breast, upper outer quadrant N63.21 [facility] [address] Feb, Noninflammatory disorder of [facility] vulva and perineum, [place] [id number] unspecified N90.9 [facility] [address] Feb, Other abnormal and [facility] inconclusive findings on [place], [place] [id number] diagnostic imaging of breast R92.8 [facility] [address] Feb, [place] [id number] [facility] [address] Feb, Noninflammatory disorder of [facility] vulva and perineum, [place] [id number] unspecified N90.9 [facility] Jan, [place] [id number] [facility] Jan, Encounter for gynecological [facility] examination (general) [place], [place] [id number] (routine) with abnormal findings Z01.411 ; Other [...] of vulva and perineum, unspecified N90.9 [facility] [address] Jan, Leiomyoma of uterus, [facility] unspecified D25.9 and [place] [id number] Polycystic ovarian syndrome E28.2 [facility] [address] Aug, Other abnormal and [facility] inconclusive findings on [place] [id number] diagnostic imaging of breast R92.8 [facility] [address] Aug, Leiomyoma of uterus, [facility] unspecified D25.9 ; Abscess [place], [place] [id number] of vulva N76.4 and Family history of malignant neoplasm of breast Z80.3 [facility] [address] Aug, Polycystic ovarian syndrome [facility] E28.2 and Leiomyoma of [place] [id number] uterus, unspecified D25.9 [facility] [address] 29 Jul, 2017 Abscess of vulva N76.4 [place] [id number] [facility] [address] Jul, Abscess of vulva N76.4 [place], [place] [id number] [facility] [address] Jul, [place] [id number] [facility] Jul, [place] [id number] [facility] Jun, Family history of malignant [facility] neoplasm of breast Z80.3 [place], [place] [id number] and Other abnormal and inconclusive findings on diagnostic imaging of breast R92.8 [facility] [address] Jun, [place] [id number] [facility] Mar, Polycystic ovarian syndrome [facility] E28.2 ; Family history [place] [id number] malignant neoplasm of breast Z80.3 and Family history of malignant neoplasm of digestive organs Z80.0 [facility] [address] Mar, Polycystic ovarian syndrome [facility] E28.2 [place] [id number] [facility] [address] Feb, [place] [id number] [facility] [address] Jan, [place] [id number] [facility] [address] Jan, Encounter for gynecological [facility] examination (general) [place], [place] [id number] (routine) with abnormal findings Z01.411 ; Polycystic ovarian syndrome E28.2 ; Female infertility, unspecified N97.9 ; Candidiasis of skin and nail B37.2 ; Family history of malignant neoplasm of breast Z80.3 and Body mass index (BMI) 40.0-44.9, adult Z68.41 [facility] [address] Dec, [place] [id number] [facility] [address] Nov, [place] [id number] [facility] [address] Oct, [place] [id number] [facility] 103 Aug, Encounter for gynecological [facility] examination (general) [place], [place] [id number] (routine) with abnormal findings Z01.411 ; Polycystic ovarian syndrome E28.2 ; Nonscarring hair loss, unspecified L65.9 and Body mass index (BMI) 34.0-34.9, adult Z68.34 [facility] [address] Jul, [place] [id number] [facility] [address] Jun, Polycystic ovarian syndrome [facility] E28.2 [place] [id number] [facility] [address] Mar, [place] [id number] [facility] 103 Feb, Other specified conditions [facility] associated with female [place], [place] [id number] genital organs and menstrual cycle N94.89 ; Excessive and frequent menstruation with regular cycle N92.0 ; 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 ; Polycystic ovarian syndrome E28.2 and Body mass index (BMI) 39.0-39.9, adult Z68.39 [facility] [address] Nov, PELVIC PAIN 625.9 ; [facility] Menometrorrhagia 626.2 and [place] [id number] Hyperinsulinism 251.1 [facility] [address] Nov, [place] [id number] [facility] 103 Oct, Menometrorrhagia 626.2 [place], [place] [id number] [facility] 103 Oct, Menometrorrhagia 626.2 [place], [place] [id number] [facility] 103 Oct, PELVIC PAIN 625.9 and OBGYN [facility] Menometrorrhagia 626.2 [place], [place] [id number] [facility] [address] Oct, [place] [id number] [facility] 103 Oct, Menometrorrhagia 626.2 [place] [id number] [facility] 103 Oct, PELVIC PAIN 625.9 and OBGYN [facility] Menometrorrhagia 626.2 [place], [place] [id number] [facility] 103 Jun, [place] [id number] [facility] 103 Jun, [place] [id number] [facility] [address] Jun, [place] [id number] [facility] [address] Jun, [place] [id number] [facility] [address] September, [place], [place] [id number] [facility] 103 Aug, FAMILY HX-BREAST MALIG OBGYN [facility] V16.3 [place], [place] [id number] [facility] [address] Aug, 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 [facility] V72.31 and Yeast infection [place], [place] [id number] 112.9 IMMUNIZATIONS No Known Immunizations SOCIAL HISTORY Never Assessed REASON FOR REFERRAL FUNCTIONAL STATUS PLAN OF CARE Activity Details Follow Up 1 Year Annual Exam, 6 Months CBE Reason: VITAL SIGNS Height 69 in 2019-03-14 Weight 278 lbs 2019-03-14 BMI 41.05 kg/m2 2019-03-14 Blood pressure systolic 122 mm Hg 2019-03-14 Blood pressure diastolic 80 mm Hg 2019-03-14 MEDICATIONS Medication Instructions Dosage Frequency Start End Duration Status Date Date Vitamin B complex oral QD 1 tab 24h Active ferrous sulfate orally once a 5 mL 24h 30 day(s) Active 220 mg/5 mL day Vitamin D 5000 oral qd 1 tab 24h Active Celexa 40mg Oral qd 1 tab 24h Active One Daily orally once a 1 tab(s) 24h Active Multi-Essential day Multiple Vitamins Magnesium 2 tabs 24h Active clobetasol topical applied 1 eduardo 30 days Active 0.05% topically 2 times a day x 3-6 weeks when symptomatic, then weekly Motrin oral PRN 1 tab Active clarithromycin 500 orally every 12 1 tab(s) 12h 10 day(s) Active mg hours PROCEDURES No Known procedures RESULTS No Results REASON FOR VISIT Annual w/ US f/u Insurance Providers [facility] Member Patient Patient Patient Patient Patient Subscriber Subscriber Subscriber Group Insurance Plan Plan Plan Plan ID Relationship Address Phone Name Date of ID Name Date of No Type Insurance Insurance Insurance Coverage to Subscriber Address Phone Name Dates [place] [address] [place] [id number] Blue [id number] [place] 1 Cross/Blue [place] Cross/Blue rtrand Shield [id number] Shield [place] [address] [place] [id number] Blue [id number] Blue [place] Cross[place] Cross/Blue rtrand Shield [id number] Shield MEDICAL (GENERAL) HISTORY Type Description Date [...]
--- OUTSIDE RECORDS SUMMARY | 2019-07-15 07:39 | XMS REPORT ---
:1980 Author Name sound, ultra Care Team Providers Name Role Phone sound, ultra Unavailable Unavailable PROBLEMS Type Condition ICD9-CM [id number] Onset Condition SNOMED Code Code Code Dates Status Problem Polycystic ovarian E28.2 Active 10360427 syndrome Problem Excessive and N92.0 Active 913862828 frequent menstruation with regular cycle Problem Body mass index Z68.41 Active 315288699 (BMI) 40.0-44.9, adult Problem Other specified E16.8 Active 389137441 disorders of pancreatic internal secretion Problem Leiomyoma of D25.9 Active 24695661 uterus, unspecified Problem Family history of Z80.3 Active 039266823 malignant neoplasm of breast Problem Fibromyalgia M79.7 Active 242791446 Problem Unspecified lump in N63.21 Active [id number] the left breast, upper outer quadrant Problem 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 76820112 chronicus Problem Dysuria R30.0 Active 65493226 Problem Noninflammatory N90.9 Active 588631106 disorder of vulva and perineum, unspecified Problem Acute vaginitis N76.0 Active 00113670 Problem Other abnormal and R92.8 Active 113271646 inconclusive findings on diagnostic imaging of breast Problem Disorder of the L98.9 Active 95442069 skin and subcutaneous tissue, unspecified Problem Endometriosis of N80.0 Active 83750318 uterus Problem Disorder of breast, N64.9 Active 61369349 unspecified Problem Secondary N94.5 Active 21021613 dysmenorrhea ALLERGIES No Information ENCOUNTERS Encounter Location Date Diagnosis [facility] 26 Feb, 2020 [place] [id number] [facility] Aug, [place] [id number] [facility] May, [place] [id number] [facility] May, [place] [id number] [facility] May, [place] [id number] [facility] May, [place] [id number] [facility] May, [place] [id number] [facility] May, [place] [id number] [facility] May, Acute vaginitis N76.0 [place] [id number] [facility] May, Dysuria R30.0 and [facility] simplex chronicus L28.0 [place] [id number] [facility] May, [place] [id number] [facility] May, [place] [id number] [facility] Apr, Excessive and frequent [facility] menstruation with regular [place], [place] [id number] cycle N92.0 ; Secondary dysmenorrhea N94.5 ; Leiomyoma of uterus, unspecified D25.9 ; Family history of malignant neoplasm of breast Z80.3 and Endometriosis of uterus N80.0 [facility] Apr, [place] [id number] [facility] 103 Apr, Excessive and frequent [facility] menstruation with regular [place], [place] [id number] cycle N92.0 [facility] [address] Apr, Excessive and frequent [facility] [place] [id number] menstruation with regular cycle N92.0 ; Secondary dysmenorrhea N94.5 and Leiomyoma of uterus, unspecified D25.9 [facility] Apr, [place] [id number] [facility] Mar, Excessive and frequent [facility] menstruation with regular [place], [place] [id number] cycle N92.0 ; Polycystic ovarian syndrome E28.2 ; Leiomyoma of uterus, unspecified D25.9 ; Family history of malignant neoplasm of breast Z80.3 ; Lichen simplex chronicus L28.0 ; Endometriosis of uterus N80.0 and Acute vaginitis N76.0 [facility] Mar, [place] [id number] [facility] Mar, Acute vaginitis N76.0 and [facility] Dysuria R30.0 [place] [id number] [facility] Feb, Encounter for gynecological [facility] examination (general) [place], [place] [id number] (routine) with abnormal findings Z01.411 ; Excessive and frequent menstruation with regular cycle N92.0 ; Lichen simplex chronicus L28.0 ; Polycystic ovarian syndrome E28.2 ; Leiomyoma of uterus, unspecified D25.9 ; Family history of malignant neoplasm of breast Z80.3 and Endometriosis of uterus N80.0 [facility] Feb, Leiomyoma of uterus, [facility] unspecified D25.9 [place], [place] [id number] [facility] Feb, Disorder of breast, [facility] unspecified N64.9 [place] [id number] [facility] Feb, [place] [id number] [place] [facility] Jan, Lichen simplex chronicus [address] [place], L28.0 and Disorder [place] [id number] breast, unspecified N64.9 [facility] Jan, [place] [id number] [facility] Dec, [place] [id number] [facility] Dec, [facility] frequent [facility] menstruation with regular [place], [place] [id number] cycle N92.0 ; Polycystic ovarian syndrome E28.2 ; Leiomyoma of uterus, unspecified D25.9 ; Family history of malignant neoplasm of breast Z80.3 ; Lichen simplex chronicus L28.0 and Endometriosis of uterus N80.0 [place] [address] Dec, Excessive and frequent [facility] [place] [id number] menstruation with regular cycle N92.0 ; Leiomyoma of uterus, unspecified D25.9 and Polycystic ovarian syndrome E28.2 [facility] Nov, [place] [id number] [facility] Nov, Excessive and frequent [facility] menstruation with regular [place], [place] [address] cycle N92.0 [facility] Nov, Excessive and frequent [facility] menstruation with regular [place], [place] [id number] cycle N92.0 ; Polycystic ovarian syndrome E28.2 and Leiomyoma of uterus, unspecified D25.9 [facility] Nov, [place] [id number] [facility] Oct, [place] [id number] [facility] Oct, [facility]cessive and [facility]ation with regular [place] [address] cycle N92.0 ; Polycystic ovarian syndrome E28.2 ; Leiomyoma of uterus, unspecified D25.9 ; Family history of malignant neoplasm of breast Z80.3 and Lichen simplex chronicus L28.0 [facility] Oct, Disorder of the skin and [facility] subcutaneous tissue, [place], [place] [id number] unspecified L98.9 [facility] September, [place] [id number] [facility] September, [place] [id number] [facility] September, Excessive and frequent [facility] menstruation with regular [place] [address] cycle N92.0 [facility] Aug, Family history of malignant [facility] neoplasm of breast Z80.3 [place] [id number] and Unspecified lump in the left breast, upper outer quadrant N63.21 [facility] Feb, [place] [id number] [facility] Feb, Lichen simplex chronicus [facility] L28.0 ; Family history of [place], [place] [id number] malignant neoplasm of breast Z80.3 and Unspecified lump in the left breast, upper outer quadrant N63.21 [facility] Feb, Noninflammatory disorder of [facility] vulva and perineum, [place], [place] [id number] unspecified N90.9 [facility] Feb, Other abnormal and [facility] inconclusive findings on [place], [place] [id number] diagnostic imaging of breast R92.8 [facility] Feb, [place] [id number] [facility] Feb, Noninflammatory disorder of [facility] vulva and perineum, [place] [id number] unspecified N90.9 [facility] Jan, [place] [id number] [facility] Jan, Encounter for gynecological [facility] examination (general) [place], [place] [id number] (routine) with abnormal findings Z01.411 ; Other [...] disorder of vulva and perineum, unspecified N90.9 [facility] Jan, Leiomyoma of uterus, [facility] unspecified D25.9 and [place], [place] [id number] Polycystic ovarian syndrome E28.2 [facility] 103 Aug, Other abnormal and [facility] inconclusive findings on [place], [place] [address] diagnostic imaging of breast R92.8 [facility] 103 Aug, Leiomyoma of uterus, [facility] unspecified D25.9 ; Abscess [place], [place] [id number] of vulva N76.4 and Family history of malignant neoplasm of breast Z80.3 [facility] Aug, Polycystic ovarian syndrome [facility] E28.2 and Leiomyoma of [place], [place] [id number] uterus, unspecified D25.9 [facility] Jul, Abscess of vulva N76.4 [place] [id number] [facility] Jul, Abscess of vulva N76.4 [facility] [id number] [facility] Jul, [place] [id number] [facility] Jul, [place] [id number] [facility] Jun, Family history of malignant [facility] neoplasm of breast Z80.3 [place], [place] [id number] and Other abnormal and inconclusive findings on diagnostic imaging of breast R92.8 [facility] Jun, [place] [id number] [facility] Mar, [facility]cystic [facility] syndrome [facility] E28.2 ; Family history of [place], [place] [id number] malignant neoplasm of breast Z80.3 and Family history of malignant neoplasm of digestive organs Z80.0 [facility] Mar, Polycystic ovarian syndrome [facility] E28.2 [place] [id number] [facility] Feb, [place] [id number] [facility] Jan, [place] [id number] [facility] Jan, [facility] (general) [place], [place] [id number] (routine) with abnormal findings Z01.411 ; Polycystic ovarian syndrome E28.2 ; Female infertility, unspecified N97.9 ; Candidiasis of skin and nail B37.2 ; Family history of malignant neoplasm of breast Z80.3 and Body mass index (BMI) 40.0-44.9, adult Z68.41 [facility]Note 3[facility] Dec, [place] [id number] [facility] Nov, [place] [id number] [facility] Oct, [place] [id number] [facility] Aug, Encounter for gynecological [facility] examination (general) [place], [place] [id number] (routine) with abnormal findings Z01.411 ; Polycystic ovarian syndrome E28.2 ; Nonscarring hair loss, unspecified L65.9 and Body mass index (BMI) 34.0-34.9, adult Z68.34 [facility] Jul, [place] [id number] [facility] Jun, Polycystic ovarian syndrome [facility] E28.2 [place] [id number] [facility] Mar, [place] [id number] [facility] Feb, Other specified conditions [facility] associated with female [place], [place] [id number] genital organs and menstrual cycle N94.89 ; Excessive and frequent menstruation with regular cycle N92.0 ; 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 ; Polycystic ovarian syndrome E28.2 and Body mass index (BMI) 39.0-39.9, adult Z68.39 [facility] Nov, PELVIC PAIN 625.9 ; [facility] Menometrorrhagia 626.2 and [place], [place] [id number] Hyperinsulinism 251.1 [facility] Nov, [place] [id number] [facility] Oct, Menometrorrhagia 626.2 [place], [place] [id number] [facility] Oct, Menometrorrhagia 626.2 [place] [id number] [facility] Oct, PELVIC PAIN 625.9 and OBGYN [facility] Menometrorrhagia 626.2 [place], [place] [id number] [facility] Oct, [place] [id number] [facility] Oct, Menometrorrhagia 626.2 [place] [id number] [facility] Oct, PELVIC PAIN 625.9 and OBGYN [facility] Menometrorrhagia 626.2 [place], [place] [id number] [facility] Jun, [place] [id number] [facility] Jun, [place] [id number] [facility] Jun, [place] [id number] [facility] Jun, [place] [id number] [facility] September, [place] [id number] [facility] Aug, FAMILY HX-BREAST MALIG OBGYN [facility] V16.3 [place] [id number] [facility] Aug, 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 [facility] V72.31 and Yeast infection [place], [place] [id number] 112.9 IMMUNIZATIONS No Known Immunizations SOCIAL HISTORY Never Assessed REASON FOR REFERRAL FUNCTIONAL STATUS PLAN OF CARE VITAL SIGNS MEDICATIONS Unknown Medications PROCEDURES Procedure Date Ordered Result Body Site TRANSVAGINAL US, NON-OB Mar 14, 2019 RESULTS Name Result Date Reference Range Ultrasound : Pelvis REASON FOR VISIT US Insurance Providers Health Health Health Health Health Member Patient Patient Patient Patient Patient Subscriber Subscriber Subscriber Group Insurance Plan Plan Plan Plan ID Relationship Address Phone Name Date of ID Name Date of No Type Insurance Insurance Insurance Coverage to Subscriber Address Phone Name Dates Azra [address] Azra Stewart [id number] Blue [id number] [place] 1 Cross/[place] Cross/Blue rtrand Shield [id number] Shield Azra [address] Azra Fontenotllian [id number] Blue [id number] [place] Shield [id number] Shield MEDICAL (GENERAL) HISTORY Type Description Date [...]
--- OUTSIDE RECORDS SUMMARY | 2019-07-15 07:39 | XMS REPORT ---
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 Problem Leiomyoma of D25.9 Active 42602827 uterus, unspecified Problem Family history of Z80.3 Active 218312354 malignant neoplasm of breast Problem Fibromyalgia M79.7 Active 789464906 Problem Unspecified lump in N63.21 Active [id number] the left breast, upper outer quadrant Problem 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 04015318 chronicus Problem Dysuria R30.0 Active 42708470 Problem Noninflammatory N90.9 Active 613385797 disorder of vulva and perineum, unspecified Problem Acute vaginitis N76.0 Active 89321144 Problem Other abnormal and R92.8 Active 211543400 inconclusive findings on diagnostic imaging of breast Problem Disorder of the L98.9 Active 85888548 skin and subcutaneous tissue, unspecified Problem Endometriosis of N80.0 Active 64286132 uterus Problem Disorder of breast, N64.9 Active 14704784 unspecified Problem Secondary N94.5 Active 61643935 dysmenorrhea ALLERGIES No Information ENCOUNTERS Encounter Location Date Diagnosis [facility] [address] Feb, [place], [place] [id number] [facility] [address] Aug, [place], [place] [id number] [facility] [address] May, [place], [place] [id number] [facility] [address] May, [place] [id number] [facility] 103 May, [place] [id number] [facility] [address] May, [place] [id number] [facility] [address] May, [place] [id number] [facility] [address] May, [place], [place] [id number] [facility] [address] May, [place], [place] [id number] [facility] [address] May, Acute vaginitis N76.0 [place] [id number] [facility] [address] May, Dysuria R30.0 and Lichen [facility] simplex chronicus L28.0 [place], [place] [id number] [facility] [address] May, [place], [place] [id number] [facility] [address] May, [place], [place] [id number] [facility] [address] Apr, Excessive and frequent [facility] menstruation with regular [place], [place] [id number] cycle N92.0 ; Secondary dysmenorrhea N94.5 ; Leiomyoma of uterus, unspecified D25.9 ; Family history of malignant neoplasm of breast Z80.3 and Endometriosis of uterus N80.0 [facility] 103 Apr, [place] [id number] [facility] Apr, Excessive and frequent [facility] menstruation with regular [place], [place] [id number] cycle N92.0 [place] [address] Apr, Excessive and frequent [facility] [place] [address] menstruation with regular cycle N92.0 ; Secondary dysmenorrhea N94.5 and Leiomyoma of uterus, unspecified D25.9 [facility] [address] Apr, [place] [id number] [facility] Mar, Excessive and frequent [facility] menstruation with regular [place], [place] [id number] cycle N92.0 ; Polycystic ovarian syndrome E28.2 ; Leiomyoma of uterus, unspecified D25.9 ; Family history of malignant neoplasm of breast Z80.3 ; Lichen simplex chronicus L28.0 ; Endometriosis of uterus N80.0 and Acute vaginitis N76.0 [facility] Mar, [place] [id number] [facility] Mar, Acute vaginitis N76.0 [facility] Dys[facility] R30.0 [place], [place] [id number] [facility] Feb, Encounter for gynecological [facility] examination (general) [place], [place] [id number] (routine) with abnormal findings Z01.411 ; Excessive and frequent menstruation with regular cycle N92.0 ; Lichen simplex chronicus L28.0 ; Polycystic ovarian syndrome E28.2 ; Leiomyoma of uterus, unspecified D25.9 ; Family history of malignant neoplasm of breast Z80.3 and Endometriosis of uterus N80.0 [facility] [address] Feb, Leiomyoma of uterus, OBGYN [facility] unspecified D25.9 [place], [place] [id number] [facility] 103 Feb, Disorder of breast, OBGYN [facility] unspecified N64.9 [place], [place] [id number] [facility] [address] Feb, OBGYN [place] [id number] [place] [facility] Jan, Lichen simplex chronicus [address] [place], L28.0 and Disorder [place] [id number] breast, unspecified N64.9 [facility] [address] Jan, O[place]YN [place] [id number] [facility] 103 Dec, O[place] [id number] [facility] 103 Dec, [facility] with regular [place], [place] [id number] cycle N92.0 ; Polycystic ovarian syndrome E28.2 ; Leiomyoma of uterus, unspecified D25.9 ; Family history of malignant neoplasm of breast Z80.3 ; Lichen simplex chronicus L28.0 and Endometriosis of uterus N80.0 [place] [address] Dec, Excessive and frequent [facility] [place] [id number] menstruation with regular cycle N92.0 ; Leiomyoma of uterus, unspecified D25.9 and Polycystic ovarian syndrome E28.2 [facility] [address] Nov, O[place] [id number] [facility] 103 Nov, [facility] and [facility]ation with regular [place] [id number] cycle N92.0 [facility] 103 Nov, Excessive and frequent OBGYN [facility] menstruation with regular [place], [place] [id number] cycle N92.0 ; Polycystic ovarian syndrome E28.2 and Leiomyoma of uterus, unspecified D25.9 [facility] 103 Nov, O[place] [id number] [facility] 103 Oct, [place] [id number] [facility] 103 Oct, [facility]cessive and [facility]ation with regular [place], [place] [address] cycle N92.0 ; Polycystic ovarian syndrome E28.2 ; Leiomyoma of uterus, unspecified D25.9 ; Family history of malignant neoplasm of breast Z80.3 and Lichen simplex chronicus L28.0 [facility] 103 Oct, Disorder of the skin and [facility] subcutaneous tissue, [place], [place] [id number] unspecified L98.9 [facility] 103 September, O[place] [id number] [facility] 103 September, [place] [id number] [facility] 103 September, Excessive and frequent OBGYN [facility] menstruation with regular [place], [place] [address] cycle N92.0 [facility] [address] Aug, Family history of malignant [facility] neoplasm of breast Z80.3 [place], [place] [id number] and Unspecified lump in the left breast, upper outer quadrant N63.21 [facility] 103 Feb, O[place], [place] [id number] [facility] 103 Feb, Lichen simplex chronicus [facility] L28.0 ; Family history of [place], [place] [id number] malignant neoplasm of breast Z80.3 and Unspecified lump in the left breast, upper outer quadrant N63.21 [facility] 103 Feb, Noninflammatory disorder of [facility] vulva and perineum, [place], [place] [id number] unspecified N90.9 [facility] Feb, Other abnormal and [facility] inconclusive findings on [place], [place] [id number] diagnostic imaging of breast R92.8 [facility] 103 Feb, [place] [id number] [facility] 103 Feb, Noninflammatory disorder of [facility] vulva and perineum, [place], [place] [id number] unspecified N90.9 [facility] 103 Jan, [place] [id number] [facility] 103 Jan, Encounter for gynecological [facility] examination (general) [place], [place] [id number] (routine) with abnormal findings Z01.411 ; Other [...] of vulva and perineum, unspecified N90.9 [facility] 103 Jan, Leiomyoma of uterus, [facility] unspecified D25.9 and [place], [place] [id number] Polycystic ovarian syndrome E28.2 [facility] 103 Aug, Other abnormal and [facility] inconclusive findings on [place], [place] [id number] diagnostic imaging of breast R92.8 [facility] 103 Aug, Leiomyoma of uterus, [facility] unspecified D25.9 ; Abscess [place], [place] [id number] of vulva N76.4 and Family history of malignant neoplasm of breast Z80.3 [facility] 103 Aug, Polycystic ovarian syndrome [facility] E28.2 and Leiomyoma of [place], [place] [address] uterus, unspecified D25.9 [facility] [address] 29 Jul, 2017 Abscess of vulva N76.4 [place] [id number] [facility] [address] 22 Jul, 2017 Abscess of vulva N76.4 [place] [id number] [facility] [address] 19 Jul, 2017 [place] [id number] [facility] 103 Jul, [place] [id number] [facility] 103 Jun, Family history of malignant [facility] neoplasm of breast Z80.3 [place], [place] [id number] and Other abnormal and inconclusive findings on diagnostic imaging of breast R92.8 [facility] [address] Jun, [place] [id number] [facility] 103 Mar, Polycystic ovarian syndrome [facility] E28.2 ; Family history of [place], [place] [address] malignant neoplasm of breast Z80.3 and Family history of malignant neoplasm of digestive organs Z80.0 [facility] 103 Mar, Polycystic ovarian syndrome [facility] E28.2 [place] [id number] [facility] [address] Feb, [place] [id number] [facility] [address] Jan, [place] [id number] [facility] [address] Jan, Encounter for gynecological [facility] examination (general) [place], [place] [id number] (routine) with abnormal findings Z01.411 ; Polycystic ovarian syndrome E28.2 ; Female infertility, unspecified N97.9 ; Candidiasis of skin and nail B37.2 ; Family history of malignant neoplasm of breast Z80.3 and Body mass index (BMI) 40.0-44.9, adult Z68.41 [facility] [address] Dec, [place] [id number] [facility] Nov, [place] [id number] [facility] Oct, [place] [id number] [facility] Aug, Encounter for gynecological [facility] examination (general) [place], [place] [id number] (routine) with abnormal findings Z01.411 ; Polycystic ovarian syndrome E28.2 ; Nonscarring hair loss, unspecified L65.9 and Body mass index (BMI) 34.0-34.9, adult Z68.34 [facility] Jul, [place] [id number] [facility] Jun, Polycystic ovarian syndrome [facility] E28.2 [place], [place] [id number] [facility] Mar, [place], [place] [id number] [facility] Feb, Other specified conditions [facility] associated with female [place], [place] [id number] genital organs and menstrual cycle N94.89 ; Excessive and frequent menstruation with regular cycle N92.0 ; 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 ; Polycystic ovarian syndrome E28.2 and Body mass index (BMI) 39.0-39.9, adult Z68.39 [facility] 103 Nov, PELVIC PAIN 625.9 ; [facility] Menometrorrhagia 626.2 and [place], [place] [id number] Hyperinsulinism 251.1 [facility] [address] Nov, [place] [id number] [facility] 103 Oct, Menometrorrhagia 626.2 [place] [id number] [facility] 103 Oct, Menometrorrhagia 626.2 [place], [place] [id number] [facility] 103 Oct, PELVIC PAIN 625.9 and OBGYN [facility] Menometrorrhagia 626.2 [place], [place] [id number] [facility] 103 Oct, [place] [id number] [facility] 103 Oct, Menometrorrhagia 626.2 [place] [id number] [facility] 103 Oct, PELVIC PAIN 625.9 and OBGYN [facility] Menometrorrhagia 626.2 [place], [place] [id number] [facility] 103 Jun, [place] [id number] [facility] [address] Jun, [place] [address] [facility] 103 Jun, [place] [id number] [facility] 103 Jun, [place] [id number] [facility] 103 September, O[place] [id number] [facility] 103 Aug, FAMILY HX-BREAST MALIG OBGYN [facility] V16.3 [place], [place] [id number] [facility] [address] Aug, ROUTINE FLY FISHING GUIDE EXAMINATION OBGYN [facility] V72.31 and Yeast infection [place], [place] [id number] 112.9 IMMUNIZATIONS No Known Immunizations SOCIAL HISTORY Never Assessed REASON FOR REFERRAL FUNCTIONAL STATUS PLAN OF CARE VITAL SIGNS MEDICATIONS Unknown Medications PROCEDURES No Known procedures RESULTS No Results REASON FOR VISIT Steri strips removed/slight redness Insurance Providers [facility] Member Patient Patient Patient Patient Patient Subscriber Subscriber Subscriber Group Insurance Plan Plan Plan Plan ID Relationship Address Phone Name Date of ID Name Date of No Type Insurance Insurance Insurance Coverage to Subscriber Address Phone Name Dates [employer] [address] [place] [id number] [place]/Blue r[place]and Shield [id number] Shield [place] [phone] [employer] self [place] [id number] Blue [id number] 89 Blue [place] 1 [place] Shield [id number] Shield MEDICAL (GENERAL) HISTORY Type Description Date [...]
--- OUTSIDE RECORDS SUMMARY | 2019-07-15 07:39 | XMS REPORT ---
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 Problem Leiomyoma of D25.9 Active 13304107 uterus, unspecified Problem Family history of Z80.3 Active 450398835 malignant neoplasm of breast Problem Fibromyalgia M79.7 Active 841864358 Problem Unspecified lump in N63.21 Active [id number] the left breast, upper outer quadrant Problem 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 61854144 chronicus Problem Dysuria R30.0 Active 34932264 Problem Noninflammatory N90.9 Active 330891386 disorder of vulva and perineum, unspecified Problem Acute vaginitis N76.0 Active 16549303 Problem Other abnormal and R92.8 Active 200333832 inconclusive findings on diagnostic imaging of breast Problem Disorder of the L98.9 Active 52220552 skin and subcutaneous tissue, unspecified Problem Endometriosis of N80.0 Active 73046964 uterus Problem Disorder of breast, N64.9 Active 98277940 unspecified Problem Secondary N94.5 Active 84489325 dysmenorrhea ALLERGIES Substance Reaction Event Type Date Status penicillin hives Drug Allergy Apr, Active ENCOUNTERS Encounter Location Date Diagnosis [facility] [address] Feb, [place], [place] [id number] [facility] [address] Aug, [place], [place] [id number] [facility] [address] May, [place], [place] [id number] [facility] [address] May, [place] [id number] [facility] [address] May, [place] [id number] [facility] 103 May, [place] [id number] [facility] [address] May, [place] [id number] [facility] [address] May, [place], [place] [id number] [facility] [address] May, [place], [place] [id number] [facility] 103 May, Acute vaginitis N76.0 [place] [id number] [facility] [address] May, Dysuria R30.0 and Lichen [facility] simplex chronicus L28.0 [place], [place] [id number] [facility] [address] May, [place], [place] [id number] [facility] [address] May, [place], [place] [id number] [facility] 103 Apr, [facility] with regular [place], [place] [id number] cycle N92.0 ; Secondary dysmenorrhea N94.5 ; Leiomyoma of uterus, unspecified D25.9 ; Family history of malignant neoplasm of breast Z80.3 and Endometriosis of uterus N80.0 [facility] Apr, [place], [place] [id number] [facility] Apr, Excessive and frequent [facility] menstruation with regular [place], [place] [id number] cycle N92.0 [place] [address] Apr, Excessive and frequent [facility] [place] [id number] menstruation with regular cycle N92.0 ; Secondary dysmenorrhea N94.5 and Leiomyoma of uterus, unspecified D25.9 [facility] Apr, [place] [id number] [facility] Mar, Excessive and frequent [facility] menstruation with regular [place], [place] [id number] cycle N92.0 ; Polycystic ovarian syndrome E28.2 ; Leiomyoma of uterus, unspecified D25.9 ; Family history of malignant neoplasm of breast Z80.3 ; Lichen simplex chronicus L28.0 ; Endometriosis of uterus N80.0 and Acute vaginitis N76.0 [facility] Mar, [place] [id number] [facility] 103 Mar, Acute vaginitis N76.[address] [facility] Dysuria R30.0 [place] [id number] [facility] 103 Feb, Encounter for gynecological [facility] examination (general) [place], [place] [id number] (routine) with abnormal findings Z01.411 ; Excessive and frequent menstruation with regular cycle N92.0 ; Lichen simplex chronicus L28.0 ; Polycystic ovarian syndrome E28.2 ; Leiomyoma of uterus, unspecified D25.9 ; Family history of malignant neoplasm of breast Z80.3 and Endometriosis of uterus N80.0 [facility] [address] Feb, Leiomyoma of uterus, OBGYN [facility] unspecified D25.9 [place], [place] [id number] [facility] 103 Feb, Disorder of breast, OBGYN [facility] unspecified N64.9 [place] [id number] [facility] [address] Feb, OBG[place] [id number] [facility] Jan, Lichen simplex chronicus [address] [place], L28.0 [place] [id number] breast, unspecified N64.9 [facility] [address] Jan, OBG[place] [id number] [facility] 103 Dec, [place] [id number] [facility] 103 Dec, Excessive and frequent [facility] menstruation with regular [place], [place] [id number] cycle N92.0 ; Polycystic ovarian syndrome E28.2 ; Leiomyoma of uterus, unspecified D25.9 ; Family history of malignant neoplasm of breast Z80.3 ; Lichen simplex chronicus L28.0 and Endometriosis of uterus N80.0 [facility] [address] Dec, Excessive and frequent [facility] [place] [id number] menstruation with regular cycle N92.0 ; Leiomyoma of uterus, unspecified D25.9 and Polycystic ovarian syndrome E28.[address] [facility] Nov, OBG[place] [id number] [facility] 103 Nov, Excessive and frequent OBGYN [facility] menstruation with regular [place], [place] [id number] cycle N92.0 [facility] 103 Nov, Excessive and frequent OBGYN [facility] menstruation with regular [place], [place] [id number] cycle N92.0 ; Polycystic ovarian syndrome E28.2 and Leiomyoma of uterus, unspecified D25.9 [facility] 103 Nov, OBGYN [place] [id number] [facility] 103 Oct, OBG[place] [id number] [facility] 103 Oct, [facility] and [facility] with regular [place] [id number] cycle N92.0 ; Polycystic ovarian syndrome E28.2 ; Leiomyoma of uterus, unspecified D25.9 ; Family history of malignant neoplasm of breast Z80.3 and Lichen simplex chronicus L28.0 [facility] 103 Oct, Disorder of the skin and [facility] subcutaneous tissue, [place], [place] [id number] unspecified L98.9 [facility] 103 September, [place] [id number] [facility] 103 September, OBGYN [place] [id number] [facility] 103 September, [facility]cessive and [facility] with regular [place] [id number] cycle N92.0 [facility] 103 Aug, Family history of malignant [facility] neoplasm of breast Z80.3 [place], [place] [id number] and Unspecified lump in the left breast, upper outer quadrant N63.21 [facility] 103 Feb, OBG[place] [id number] [facility] 103 Feb, Lichen simplex chronicus [facility] L28.0 ; Family history of [place], [place] [id number] malignant neoplasm of breast Z80.3 and Unspecified lump in the left breast, upper outer quadrant N63.21 [facility] 103 Feb, Noninflammatory disorder of [facility] vulva and perineum, [place], [place] [id number] unspecified N90.9 [facility] 103 Feb, Other abnormal and [facility] inconclusive findings on [place], [place] [id number] diagnostic imaging of breast R92.8 [facility] 103 Feb, [place] [id number] [facility] 103 Feb, Noninflammatory disorder of [facility] vulva and perineum, [place], [place] [id number] unspecified N90.9 [facility] 103 Jan, [place], [place] [id number] [facility] 103 Jan, Encounter for gynecological [facility] examination (general) [place], [place] [id number] (routine) with abnormal findings Z01.411 ; Other [...] disorder of vulva and perineum, unspecified N90.9 [facility] 103 Jan, Leiomyoma of uterus, [facility] unspecified D25.9 and [place], [place] [id number] Polycystic ovarian syndrome E28.2 [facility] 103 Aug, Other abnormal and [facility] inconclusive findings on [place], [place] [id number] diagnostic imaging of breast R92.8 [facility] 103 Aug, Leiomyoma of uterus, [facility] unspecified D25.9 ; Abscess [place], [place] [id number] of vulva N76.4 and Family history of malignant neoplasm of breast Z80.3 [facility] 103 Aug, Polycystic ovarian syndrome [facility] E28.2 and Leiomyoma of [place] [id number] uterus, unspecified D25.9 [facility] 103 Jul, Abscess of vulva N76.4 [place] [id number] [facility] 103 Jul, Abscess of vulva N76.4 [place] [id number] [facility] 103 Jul, [place]BG[place] [id number] [facility] 103 Jul, [place] [id number] [facility] 103 Jun, Family history of malignant [facility] neoplasm of breast Z80.3 [place], [place] [id number] and Other abnormal and inconclusive findings on diagnostic imaging of breast R92.8 [facility] 103 Jun, [place] [id number] [facility] 103 Mar, Polycystic ovarian syndrome [facility] E28.2 ; Family history [place] [id number] malignant neoplasm of breast Z80.3 and Family history of malignant neoplasm of digestive organs Z80.0 [facility] 103 Mar, Polycystic ovarian syndrome [facility] E28.2 [place] [id number] [facility] 103 Feb, [place] [id number] [facility] 103 Jan, [place] [id number] [facility] 103 Jan, [facility]ological [facility] (general) [place], [place] [id number] (routine) with abnormal findings Z01.411 ; Polycystic ovarian syndrome E28.2 ; Female infertility, unspecified N97.9 ; Candidiasis of skin and nail B37.2 ; Family history of malignant neoplasm of breast Z80.3 and Body mass index (BMI) 40.0-44.9, adult Z68.41 [facility] Dec, [place] [id number] [facility] Nov, [place] [id number] [facility] Oct, [place] [id number] [facility] 103 Aug, Encounter for gynecological [facility] examination (general) [place], [place] [id number] (routine) with abnormal findings Z01.411 ; Polycystic ovarian syndrome E28.2 ; Nonscarring hair loss, unspecified L65.9 and Body mass index (BMI) 34.0-34.9, adult Z68.34 [facility] 103 Jul, [place] [id number] [facility] 103 Jun, Polycystic ovarian syndrome [facility] E28.2 [place] [id number] [facility] Mar, [place] [id number] [facility] Feb, Other specified conditions 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 Nov, PELVIC PAIN 625.9 ; [facility] Menometrorrhagia 626.2 and [place], [place] [id number] Hyperinsulinism 251.1 [facility] [address] Nov, [place] [id number] [facility] 103 Oct, Menometrorrhagia 626.2 [place] [id number] [facility] 103 Oct, Menometrorrhagia 626.2 [place], [place] [id number] [facility] 103 Oct, PELVIC PAIN 625.9 and OBGYN [facility] Menometrorrhagia 626.2 [place], [place] [id number] [facility] 103 Oct, [place] [id number] [facility] 103 Oct, Menometrorrhagia 626.2 [place] [id number] [facility] 103 Oct, PELVIC PAIN 625.9 and OBGYN [facility] Menometrorrhagia 626.2 [place], [place] [id number] [facility] 103 Jun, [place] [id number] [facility] 103 Jun, [place] [id number] [facility] 103 Jun, [place] [id number] [facility] 103 Jun, [place] [id number] [facility] 103 September, [place] [id number] [facility] 103 Aug, FAMILY HX-BREAST MALIG OBGYN [facility] V16.3 [place], [place] [id number] [facility] 103 Aug, ROUTINE PROFILER EXAMINATION OBGYN [facility] V72.31 and Yeast infection [place], [place] [id number] 112.9 IMMUNIZATIONS No Known Immunizations SOCIAL HISTORY Never Assessed REASON FOR REFERRAL FUNCTIONAL STATUS PLAN OF CARE Activity Details Follow Up f/u 1 mo to assess vag cuff. Give OR photos. Schedule consult w/ gen surgeon for R inguinal hernia. Schedule breast MRI (action for preauth created) Reason: VITAL SIGNS Height 69 in 2019-05-14 Weight 277 lbs 2019-05-14 BMI 40.90 kg/m2 2019-05-14 Blood pressure systolic 134 mm Hg 2019-05-14 Blood pressure diastolic 86 mm Hg 2019-05-14 MEDICATIONS Medication Instructions Dosage Frequency Start End Date Duration Status Date One Daily orally once a day 1 tab(s) 24h Active Multi-Essential Multiple Vitamins Motrin oral PRN 1 tab Active Vitamin D 5000 oral qd 1 tab 24h Active Celexa 40mg Oral qd 1 tab 24h Active Magnesium 2 tabs 24h Active ibuprofen 800 orally q 8 hrs 1 tab(s) 08 Dec, Active mg PRN 2018 Percocet 5/325 orally every -4 6 1 tab(s) 16 Dec, Active 325 mg-5 mg hours PRN 2018 clobetasol applied topically 1 eduardo 30 days Active topical 0.05% 2 times a day x 3-6 weeks when symptomatic, then weekly Vitamin B oral QD 1 tab 24h Active complex ferrous sulfate orally once a day 5 mL 24h 30 day(s) Active 220 mg/5 mL PROCEDURES No Known procedures RESULTS No Results REASON FOR VISIT post op , small R inguinal hernia noted during surgery and has h/o RLQ intermittent pain, Repeat UA for blood in urine Insurance Providers [facility] Member Patient Patient Patient Patient Patient Subscriber Subscriber Subscriber Group Insurance Plan Plan Plan Plan ID Relationship Address Phone Name Date of ID Name Date of No Type Insurance Insurance Insurance Coverage to Subscriber Address Phone Name Dates [place] [address] [place] [id number] Blue [id number] 89 [place] Cross/Blue [place] Cross/Blue rtrand Shield [id number] Shield [place] [address] [place] [id number] Blue [id number] 89 Blue [place] 1 Cross/Blue [place] Cross/Blue r[place] Shield [id number] Shield MEDICAL (GENERAL) HISTORY Type Description Date [...]
[2019-07-15 07:49] VITALS: BP 136/79
[2019-07-15 08:14] LABS: Influenza B Molecular POSITIVE (Negative)
--- NOTE | 2019-07-15 08:28 | UC ---
Throat Pain/Nasal Jorge Alberto HPI - HPI Summary HPI Summary: 38 yo female with 4 day history of moderate to severe sore throat. She has felt ill for about a week with sinus symptoms. no fever some sinus tenderness and post nasal drip non productive cough no CP of SOB no chills some myalgias no ASHBY or stiff neck In May had a three day hospitalization for sepsis due to SINUSITIS was discharged on levaquin and flagyl no n/v/d - History of Current Complaint Chief Complaint: UCRespiratory Stated Complaint: SORE THROAT,COUGH Time Seen by Provider: 07/15/19 07:53 Hx Obtained From: Patient Hx Last Menstrual Period: 02/27/19 Onset/Duration: Gradual Onset, Lasting Days Severity: Severe Pain Intensity: 8 Pain Scale Used: 0-10 Numeric Cough: Nonproductive Associated Signs & Symptoms: Positive: Sinus Discomfort, Nasal Discharge, Fever. Negative: Wheezing, Hoarseness, Vomiting, Rash, Other - Epiglottits Risk Factors Epiglottis Risk Factors: Negative - Allergies/Home Medications Allergies/Adverse Reactions: Allergies Allergy/AdvReac Type Severity Reaction Status Date / Time Penicillins Allergy Avoids it Verified 07/15/19 07:50 due to father's allergy Home Medications: Home Medications Citalopram Hydrobromide [Celexa] 40 mg PO BEDTIME 04/25/13 [History Confirmed ] Cholecalciferol TAB* [Vitamin D TAB*] 2,000 units PO DAILY 03/30/15 [History Confirmed 07/15/19] Cyanocobalamin TAB* [Vitamin B12 TAB*] 500 mcg PO DAILY 03/30/15 [History Confirmed 07/15/19] Multivitamin [Multivitamins] 1 cap PO DAILY 03/30/15 [History Confirmed 07/15/19 ] Magnesium Oxide [Mag-Oxide Magnesium] 100 mg PO BID 06/16/18 [History Confirmed 07/15/19] Ibuprofen TAB* [Motrin TAB* 800 MG] 800 mg PO Q8H PRN 12/11/18 [History Confirmed 07/15/19] Ferrous Gluconate [Iron] 2 tab PO BID 03/08/19 [History Confirmed 07/15/19] DOXYcycline CAP(*) [DOXYcycline 100MG CAP(*)] 100 mg PO BID #20 cap 07/15/19 [Rx ] PMH/Surg Hx/FS Hx/Imm Hx Previously Healthy: Yes - fibromyalgia Other History Of: Negative For: HIV, Hepatitis B, Hepatitis C, Anticoagulant Therapy - Surgical History Surgical History: Yes Surgery Procedure, Year, and Place: x1; hysterectomy 04/2019; septicemia 05/2019. ORAL SURGERY - Family History Known Family History: Positive: Non-Contributory Negative: Cardiac Disease, Hypertension, Renal Disease - Social History Alcohol Use: None Substance Use Type: Prescribed Substance Use Comment - Amount & Last Used: xanax Smoking Status (MU): Former Smoker Have You Smoked in the Last Year: No - Immunization History Most Recent Influenza Vaccination: none Review of Systems All Other Systems Reviewed And Are Negative: Yes Constitutional: Positive: Fatigue Skin: Positive: Negative Eyes: Positive: Negative ENT: Positive: Sore Throat, Nasal Discharge, Sinus Congestion, Sinus Pain/ Tenderness Respiratory: Positive: Cough Cardiovascular: Positive: Negative Gastrointestinal: Positive: Negative Genitourinary: Positive: Negative Motor: Positive: Negative Neurovascular: Positive: Negative Musculoskeletal: Positive: Myalgia Neurological/Mental Status: Positive: Negative Psychological: Positive: Negative Physical Exam Triage Information Reviewed: Yes Appearance: Well-Appearing, No Pain Distress, Well-Nourished Vital Signs: Initial Vital Signs Temp 98.6 F 07/15/19 07:39 Pulse 88 07/15/19 07:39 Resp 20 07/15/19 07:39 BP 136/79 07/15/19 07:39 Pulse Ox 100 07/15/19 07:39 Vital Signs Reviewed: Yes Eyes: Positive: Conjunctiva Clear ENT: Positive: Hearing grossly normal, Pharyngeal erythema, Nasal congestion, Nasal drainage, Sinus tenderness - mild R>L max, Uvula midline. Negative: Tonsillar swelling, Tonsillar exudate, Hoarse voice Dental Exam: Normal Neck: Positive: Supple, Nontender, Enlarged Nodes @ - ant cerv Respiratory: Positive: Lungs clear, Normal breath sounds, No respiratory distress, No accessory muscle use Cardiovascular: Positive: RRR, No Murmur Musculoskeletal: Positive: ROM Intact, No Edema Neurological: Positive: Alert Psychological Exam: Normal Skin Exam: Normal Diagnostics - Laboratory Lab Results: influenza B + strep - - Radiology No standard instances Radiology Interpretation Completed By: Radiologist Summary of Radiographic Findings: CXR (-) Throat Pain/Nasal Course/Dx - Course Course Of Treatment: due to recent hospitalization for septicemia due to sinusitis will rx with antibiotics patient is outside the window for tamiflu to be effective - Differential Dx/Diagnosis Provider Diagnosis: Influenza B, Acute sinusitis treated with antibiotics in the past 60 days Discharge ED - Sign-Out/Discharge Documenting (check all that apply): Patient Departure All imaging exams completed and their final reports reviewed: No Studies - Discharge Plan Condition: Stable Disposition: HOME Prescriptions: DOXYcycline CAP(*) [DOXYcycline 100MG CAP(*)] 100 mg PO BID #20 cap Patient Education Materials: Sinusitis (ED), Influenza (ED) Referrals: Eloy Reed NP [Primary Care Provider] - 3 Days - Billing Disposition and Condition Condition: STABLE Disposition: Home
== END 2019-07-15 08:39 | disposition home or self-care (01) ==
LOC: UCCORT 07:32
DX: J10.1 Influenza due to other identified influenza virus with other respiratory manifestations (principal); J01.90 Acute sinusitis, unspecified; M79.7 Fibromyalgia; Z87.891 Personal history of nicotine dependence; Z88.0 Allergy status to penicillin
CPT/HCPCS: 71046; 87651; 99212; G0463